=== PATIENT | female | born 1940 | race Caucasian/White ===

== ENCOUNTER 2019-06-20 06:07 | Emergency (ER) | payer MEDICARE ==
[2019-06-20] MEDS ORDERED: Sodium Chloride 0.9% 1000 ML 1,000 ML IV STA (06:25)
[2019-06-20 06:30] VITALS: O2SAT 96
--- NOTE | 2019-06-20 06:34 | ERPHSYRPT ---
- History of Present Illness Historian: patient Timing/Duration: day(s) (4; bloody diarrhea only started today) Activities at Onset: none Quality: cramping Abdominal Pain Onset Location: epigastric Severity of Pain-Max: mild Severity of Pain-Current: mild <AAMIR VAUGHN - Last Filed: 06/20/19 07:02> - History of Present Illness Exam Limitations: no limitations <HERRERAVIRIDIANALEAH CARLITA - Last Filed: 06/20/19 09:18> - History of Present Illness Time Seen by Provider: 06/20/19 06:23 Physician History: Placed on antibiotics 2 days ago; had diarrhea before then - has continued with several episodes this AM - with bright red blood present. Patien had complete/ extensive but routine (no problems prompting exam) recently with primary care provider. Has diarrhea always with antiibiotics - though this time was present before the ABX. (AAMIR VAUGHN) Allergies/Adverse Reactions: amoxicillin Allergy (Verified 06/20/19 06:36) codeine Allergy (Verified 06/20/19 06:36) dicyclomine [From Bentyl] Allergy (Verified 06/20/19 06:36) eszopiclone [From Lunesta] Allergy (Verified 06/20/19 06:36) gabapentin Allergy (Verified 06/20/19 06:36) morphine Allergy (Verified 06/20/19 06:36) propoxyphene [From Darvon] Allergy (Verified 06/20/19 06:36) tetracycline Allergy (Verified 06/20/19 06:36) Home Medications: Amlodipine Besylate 5 mg [Norvasc 5 mg] 5 mg PO DAILY 06/20/19 [History] Aspirin EC 81 mg [Ecotrin 81 mg] 81 mg PO DAILY 06/20/19 [History] Atorvastatin Calcium 10 mg PO DAILY 06/20/19 [History] Cetirizine HCl [Zyrtec] 10 mg PO DAILY 06/20/19 [History] Hydrochlorothiazide 25 mg [hydroDIURIL 25 MG] 25 mg PO DAILY 06/20/19 [ History] Losartan Potassium 50 mg [Cozaar 50 MG] 50 mg PO DAILY 10/21/19 [History] - Review of Systems Constitutional: No Symptoms Respiratory: No Symptoms Cardiac: No Symptoms Abdominal/Gastrointestinal: Other (cramping) All Other Systems: Reviewed and Negative <AAMIR VAUGHN - Last Filed: 06/20/19 07:02> - Past Medical History Neurological History: No Pertinent History Cardiac History: Hypertension Respiratory History: No Pertinent History Endocrine Medical History: Hypothyroidism, Other Musculoskeletal History: Osteoarthritis Other Medical History: BORDERLINE DMII, DOES NOT TAKE MEDICATION FOR THIS. SEE LIST FOR MEDICATIONS TAKEN. <AAMIR VAUGHN - Last Filed: 06/20/19 07:02> - Physical Exam General Appearance: no apparent distress Eye Exam: PERRL/EOMI Ears, Nose, Throat Exam: normal ENT inspection, pharynx normal, moist mucous membranes Neck Exam: normal inspection, non-tender, supple Respiratory Exam: normal breath sounds, lungs clear, airway intact, No chest tenderness, No respiratory distress Cardiovascular Exam: regular rate/rhythm, normal heart sounds, normal peripheral pulses, No edema Gastrointestinal/Abdomen Exam: soft Extremity Exam: normal inspection, No pedal edema, No swelling Neurologic Exam: alert, oriented x 3, cooperative Skin Exam: normal color, warm, dry SpO2 Interpretation: normal O2 Delivery: Room Air <AAMIR VAUGHN - Last Filed: 06/20/19 07:02> - Nursing Vital Signs Nursing Vital Signs: Initial Vital Signs Temperature 97.8 F 06/20/19 06:15 Pulse Rate 77 06/20/19 06:15 Respiratory Rate 16 06/20/19 06:15 Blood Pressure 168/71 06/20/19 06:15 O2 Sat by Pulse Oximetry 96 06/20/19 06:15 Pain Scale Pain Intensity 0 - Course Nursing assessment & vital signs reviewed: Yes <AAMIR VAUGHN - Last Filed: 06/20/19 07:02> - CT Exams Abdomen/Pelvis CT Interpretation: Other (iinterpretation: Lung bases demonstrates minimal fibrosis/scarring. No fracture or effusion. Heart is not enlarged. Noncontrast stomach and bowel loops appear nonobstructed. Patient reports appendectomy cholecystectomy. Diffuse scattered colonic diverticulosis with minimal descending and sigmoid diverticulitis. No free fluid//area. A few small hepatic cysts, largest 11 millimeters. Also a 6 mm splenic cyst. Remaining liver, pancreas, spleen, adrenal glands, kidneys, ureters, bladder, and uterus appear unremarkable. Moderate scattered aorta iliac calcifications. No AAA or pathologic retroperitoneal lymphadenopathy. Osseous structures intact with mild degenerative changes of the spine, greater his lower lumbar spine. Overall impression: Scattered colonic diverticulosis with minimal descending and sigmoid diverticulitis. No consultations. Incidental hepatic/ splenic cyst.) <WILLIE SILVERMAN - Last Filed: 06/20/19 09:18> Ordered Tests: Active Orders 24 hr Category Date Time Status IV Insertion STAT Care 06/20/19 06:25 Active Orthostatic Vital Signs STAT Care 06/20/19 08:06 Active ABDOMEN AND PELVIS W CONTRAST [CT] Stat Exams 06/20/19 06:26 Completed CBC W DIFF Stat Lab 06/20/19 06:36 Completed CMP Stat Lab 06/20/19 06:36 Completed LIPASE Stat Lab 06/20/19 06:36 Completed Medication Summary Discontinued Medications Generic Name Dose Route Start Last Admin Trade Name Freq PRN Reason Stop Dose Admin Sodium Chloride 1,000 mls @ 999 mls/hr 06/20/19 06:25 06/20/19 08:03 Sodium Chloride 0.9% 1000 Ml IV 06/20/19 07:25 Infused .Q1H1M STA Infusion Sodium Chloride Confirm 06/20/19 06:39 Sodium Chloride 0.9% 1000 Ml Administered 06/20/19 06:40 Dose 1,000 mls @ ud .ROUTE .STK-MED ONE Lab/Rad Data: Laboratory Result Diagrams 06/20/19 06:36 06/20/19 06:36 Laboratory Results 06/20/19 06/20/19 06/20/19 Range/Units 06:50 06:36 06:36 WBC 8.6 (4.0-10.5) K/mm3 RBC 4.33 (4.1-5.4) M/mm3 Hgb 13.9 (12.0-16.0) gm/dl Hct 41.5 (35-47) % MCV 95.8 (78-100) fl MCH 32.1 H (26-32) pg MCHC 33.5 (32-36) g/dl RDW 13.6 (11.5-14.0) % Plt Count 212 (150-450) K/mm3 MPV 9.5 (6-9.5) fl Gran % 52.3 (36.0-66.0) % Eos # (Auto) 0.17 (0-0.5) Absolute Lymphs (auto) 3.04 (1.0-4.6) Absolute Monos (auto) 0.83 (0.0-1.3) Lymphocytes % 35.4 (24.0-44.0) % Monocytes % 9.7 (0.0-12.0) % Eosinophils % 2.0 (0.00-5.0) % Basophils % 0.6 (0.0-0.4) % Absolute Granulocytes 4.50 (1.4-6.9) Basophils # 0.05 (0-0.4) Sodium 143 (137-145) mmol/L Potassium 3.7 (3.5-5.1) mmol/L Chloride 106 (98-107) mmol/L Carbon Dioxide 25 (22-30) mmol/L Anion Gap 14.6 (5-15) MEQ/L BUN 12 (7-17) mg/dL Creatinine 0.87 (0.52-1.04) mg/dL Estimated GFR > 60.0 ML/MIN Glucose 123 H (74-106) mg/dL Calcium 9.6 (8.4-10.2) mg/dL Total Bilirubin 0.80 (0.2-1.3) mg/dL AST 33 (14-36) U/L ALT 16 (0-35) U/L Alkaline Phosphatase 63 (38-126) U/L Serum Total Protein 7.3 (6.3-8.2) g/dL Albumin 4.2 (3.5-5.0) g/dL Lipase 73 (23-300) U/L Stl C. cayetanensis PCR NEGATIVE (NEGATIVE) Stl Adenov F 40/41 PCR NEGATIVE (NEGATIVE) Stool Astrovirus (PCR) NEGATIVE (NEGATIVE) Stool Cryptosporidium PCR NEGATIVE (NEGATIVE) Stool EPEC (PCR) NEGATIVE (NEGATIVE) Stool EAEC (PCR) NEGATIVE (NEGATIVE) Stl E. histolytica PCR NEGATIVE (NEGATIVE) Stl P. shigelloides PCR NEGATIVE (NEGATIVE) Stool Sapovirus (PCR) NEGATIVE (NEGATIVE) St Y.enterocolitica PCR NEGATIVE (NEGATIVE) Stool Vibrio (PCR) NEGATIVE (NEGATIVE) Stl Vibrio cholerae PCR NEGATIVE (NEGATIVE) Stl Norovirus GI/GII PCR NEGATIVE (NEGATIVE) Campylobacter (PCR) NEGATIVE (NEGATIVE) C. difficile (PCR) NEGATIVE (NEGATIVE) Enterotoxigenic E. coli NEGATIVE (NEGATIVE) E.coli Shiga Toxins NEGATIVE (NEGATIVE) Giardia lamblia NEGATIVE (NEGATIVE) Rotavirus A (PCR) NEGATIVE (NEGATIVE) Salmonella (PCR) NEGATIVE (NEGATIVE) Shigella (PCR) NEGATIVE (NEGATIVE) <AAMIR VAUGHN - Last Filed: 06/20/19 07:02> - Progress Progress: improved Counseled pt/family regarding: lab results, diagnosis, need for follow-up, rad results <WILLIE SILVERMAN - Last Filed: 06/20/19 09:18> - Progress Progress Note: 06/20/19 08:57 Repeat abdominal examination shows no guarding or any CVA tenderness bilaterally. (WILLIE SILVERMAN) <AAMIR VAUGHN - Last Filed: 06/20/19 07:02> - Departure Departure Disposition: Home Critical Care Time: No <WILLIE SILVERMAN - Last Filed: 06/20/19 09:18> - Departure Clinical Impression: Abdominal pain in female patient, Sigmoid diverticulitis, Hepatic cyst, Splenic cyst, Hematochezia Hypertension Qualifiers: Hypertension type: essential hypertension Qualified Code(s): I10 - Essential ( primary) hypertension Condition: Good Referrals: ISABEL LIRIANO DO [Primary Care Provider] - 06/20/19 Instructions: Gastrointestinal Bleeding (DC), Bloody Stools, Adult (DC), Acute Abdomen (Belly Pain), Adult (DC), High Blood Pressure (DC) Additional Instructions: Return immediately back to the Emergency Department if any worse abdominal pain , worsening bleeding, new dizziness, new shortness of breath, new back pain, fevers, or any other concerning signs or symptoms that were not present at today 's emergency department visit for immediate reevaluation in the emergency department. Prescriptions: Ciprofloxacin [Cipro 500 MG] 500 mg PO BID #20 tablet Docusate Sodium 100 mg [Colace 100 MG] 100 mg PO BID #14 cap Metronidazole 500 mg [Flagyl 500 MG] 500 mg PO QID #40 tablet
[2019-06-20] MEDS ORDERED: Sodium Chloride 0.9% 1000 ML 1,000 ML ONE (06:39)
[2019-06-20 06:40] LABS: BASOPHIL % 0.6 % (0.0-0.4); Basophil (Absolute #) 0.05 (0-0.4); Eosinophil (Absolute #) 0.17 (0-0.5); Hematocrit 41.5 % (35-47); Hemoglobin 13.9 gm/dl (12.0-16.0); Lymphocyte (Absolute #) 3.04 (1.0-4.6); Lymphocytes % 35.4 % (24.0-44.0); Mean Cell Volume 95.8 fl (78-100); Mean Corpuscular Hemoglobin 32.1 pg (26-32); Mean Corpuscular Hgb Concent. 33.5 g/dl (32-36); Mean Platelet Volume 9.5 fl (6-9.5); Monocyte (Absolute #) 0.83 (0.0-1.3); Monocytes % 9.7 % (0.0-12.0); Neutrophil % 52.3 % (36.0-66.0); Platelet Count 212 K/mm3 (150-450); Red Blood Count 4.33 M/mm3 (4.1-5.4); Red Cell Distribution Width 13.6 % (11.5-14.0); White Blood Count 8.6 K/mm3 (4.0-10.5)
[2019-06-20 06:49] LABS: ALBUMIN 4.2 g/dL (3.5-5.0); ALKALINE PHOSPHATASE 63 U/L (38-126); ANION GAP 14.6 MEQ/L (5-15); BLOOD UREA NITROGEN 12 mg/dL (7-17); CHLORIDE 106 mmol/L (98-107); Calcium 9.6 mg/dL (8.4-10.2); Carbon Dioxide 25 mmol/L (22-30); Creatinine 1 0.87 mg/dL (0.52-1.04); Glucose 123 mg/dL (74-106); LIPASE 73 U/L (23-300); Potassium 3.7 mmol/L (3.5-5.1); SGOT/AST 33 U/L (14-36); SGPT/ALT 16 U/L (0-35); SODIUM 143 mmol/L (137-145); Total Protein 7.3 g/dL (6.3-8.2)
--- NOTE | 2019-06-20 08:45 | XRAY ---
Indication: Abdomen pain and bloody diarrhea. Multiple contiguous axial images obtained through the abdomen and pelvis using 80 cc Isovue 370 contrast only. Comparison: None Lung bases demonstrates minimal fibrosis/scarring. No fracture or effusion. Heart is not enlarged. Noncontrasted stomach and bowel loops appear nonobstructed. Patient reports appendectomy and cholecystectomy. Diffuse scattered colonic diverticulosis with minimal descending and sigmoid diverticulitis. No free fluid/air. A few small hepatic cysts largest 11 mm. Also a 6 mm splenic cyst. Remaining liver, pancreas, spleen, adrenal glands, kidneys, ureters, bladder, and uterus appear unremarkable. Moderate scattered aortoiliac calcifications. No AAA or pathologic retroperitoneal lymphadenopathy. Osseous structures intact with mild degenerative changes throughout the spine, greatest lower lumbar spine. Impression: 1. Scattered colonic diverticulosis with minimal descending and sigmoid diverticulitis. No complications. 2. Incidental hepatic/splenic cysts. CT DI is 19.61
[2019-06-20 08:50] LABS: Adenovirus F 40/41 NEGATIVE (NEGATIVE); Astrovirus NEGATIVE (NEGATIVE); C. Difficile Organism NEGATIVE (NEGATIVE); Campylobacter NEGATIVE (NEGATIVE); Cryptosporidium NEGATIVE (NEGATIVE); Cyclospora cayentanensis NEGATIVE (NEGATIVE); Entamoeaba histolytica NEGATIVE (NEGATIVE); Enteroaggregative E.coli NEGATIVE (NEGATIVE); Enteropathogenic E.coli NEGATIVE (NEGATIVE); Enterotoxigenic E.coli NEGATIVE (NEGATIVE); Giardia lamblia NEGATIVE (NEGATIVE); Norovirus GI/GII NEGATIVE (NEGATIVE); Plesiomonas shigelloides NEGATIVE (NEGATIVE); Rotavirus A NEGATIVE (NEGATIVE); Salmonella NEGATIVE (NEGATIVE); Sapovirus NEGATIVE (NEGATIVE); Shiga-like toxin prod.E.coli NEGATIVE (NEGATIVE); Vibrio NEGATIVE (NEGATIVE); Vibrio cholerae NEGATIVE (NEGATIVE); Yersinia enterocolitica NEGATIVE (NEGATIVE)
[2019-06-20 09:33] VITALS: BP 168/73; PULSE 68
== END 2019-06-20 09:31 | disposition home or self-care (01) ==
LOC: ED 06:07
DX: R10.9 Unspecified abdominal pain (principal); K57.32 Diverticulitis of large intestine without perforation or abscess without bleeding; N28.1 Cyst of kidney, acquired; D73.4 Cyst of spleen; K92.1 Melena; I10 Essential (primary) hypertension; Z79.899 Other long term (current) drug therapy
CPT/HCPCS: 36000; 36415; 74177; 80053; 83690; 85025; 87507; 96360; 99284

== ENCOUNTER 2019-06-21 11:58 | Observation (INO) | payer MEDICARE ==
[2019-06-21 12:33] LABS: Absolute Neutrophil Ct (ANC) 6.54 (1.4-6.9); BASOPHIL % 0.4 % (0.0-0.4); Basophil (Absolute #) 0.04 (0-0.4); Eosinophil % 0.5 % (0.00-5.0); Eosinophil (Absolute #) 0.05 (0-0.5); Hematocrit 41.4 % (35-47); Hemoglobin 14.1 gm/dl (12.0-16.0); Lymphocyte (Absolute #) 2.82 (1.0-4.6); Mean Cell Volume 94.3 fl (78-100); Mean Corpuscular Hemoglobin 32.1 pg (26-32); Mean Corpuscular Hgb Concent. 34.1 g/dl (32-36); Mean Platelet Volume 9.4 fl (6-9.5); Monocyte (Absolute #) 0.99 (0.0-1.3); Monocytes % 9.5 % (0.0-12.0); Neutrophil % 62.6 % (36.0-66.0); Platelet Count 224 K/mm3 (150-450); Red Blood Count 4.39 M/mm3 (4.1-5.4); Red Cell Distribution Width 13.6 % (11.5-14.0); White Blood Count 10.4 K/mm3 (4.0-10.5)
[2019-06-21 12:46] LABS: ALBUMIN 4.4 g/dL (3.5-5.0); ALKALINE PHOSPHATASE 59 U/L (38-126); ANION GAP 16.8 MEQ/L (5-15); BLOOD UREA NITROGEN 10 mg/dL (7-17); CHLORIDE 107 mmol/L (98-107); Calcium 9.5 mg/dL (8.4-10.2); Carbon Dioxide 24 mmol/L (22-30); Creatinine 1 0.84 mg/dL (0.52-1.04); Glucose 124 mg/dL (74-106); Potassium 3.5 mmol/L (3.5-5.1); SGOT/AST 42 U/L (14-36); SGPT/ALT 18 U/L (0-35); SODIUM 144 mmol/L (137-145); Total Protein 7.6 g/dL (6.3-8.2)
[2019-06-21] MEDS ORDERED: PHENERGAN 25 MG PO PRN (13:27)
[2019-06-21] MEDS ORDERED: ULTRAM 50 MG PO SCH (13:30)
[2019-06-21] MEDS ORDERED: Phenergan 25 MG INJ IM SCH (13:30)
[2019-06-21] MEDS: Levofloxacin 500MG/100ML D5W 500 MG/100 ML BAG IV SCH (14:00)
[2019-06-21] MEDS: Sodium Chloride 0.9% W/ 20 mEq KCl/LITER 1,000 ML IV SCH (14:00)
[2019-06-21] MEDS: FLAGYL 500 MG IVPB 500 MG/100 ML BAG IV SCH ×2 (14:00→23:39)
[2019-06-21] MEDS ORDERED: MEDICATION INTERVENTION PO SCH (17:00)
[2019-06-21] MEDS: Vitamin B-12 500 MCG PO SCH (17:37)
[2019-06-21] MEDS: THERAGRAN MULTIVITAMIN PO SCH (17:38)
[2019-06-21] MEDS: Cozaar 50 MG PO SCH (17:38)
[2019-06-21] MEDS: CLARITIN 10 MG PO SCH (17:38)
--- NOTE | 2019-06-21 18:30 | PCM.HP ---
History of Present Illness - Chief Complaint Chief Complaint: DIVERTICULILTIS,N/V, LOWER GI BLEED History of Present Illness: is a 78 year old female who was seen in ER yesterday with abdominal pain and hematochezia. CT showed sigmoid diverticulitis. She was given Cipro and Flagyl and took 1 days dose then started dry heaving . She came to see me at the Clinic today C/O weakness and severe nausea and low abdominal pain.Not able to eat. - Review of Systems Constitutional: Lethargy, Weakness, Other (no fever or has not taken temp but is chilled) Eyes: No Symptoms Ears, Nose, & Throat: No Symptoms Respiratory: No Cough, No Short Of Breath Cardiac: No Symptoms Abdominal/Gastrointestinal: Abdominal Pain, Nausea, Vomiting, Hematochezia, Appetite Changes Genitourinary Symptoms: Frequency, Incontinence (stress incontinence) Musculoskeletal: No Back Pain, No Neck Pain Skin: No Rash Neurological: No Dizziness, No Focal Weakness, No Sensory Changes Psychological: No Symptoms Hematologic/Lymphatic: No Symptoms (had red blood in stool x 2 stools) Medications & Allergies Home Medications: Home Medication List Amlodipine Besylate 5 mg [Norvasc 5 mg] 5 mg PO DAILY 06/20/19 [History Confirmed 06/21/19] Aspirin EC 81 mg [Ecotrin 81 mg] 81 mg PO DAILY 06/20/19 [History Confirmed 06/21/19] Atorvastatin Calcium 5 mg PO QHS 06/20/19 [History Confirmed 06/21/19] Cetirizine HCl [Zyrtec] 10 mg PO DAILY 06/20/19 [History Confirmed 06/21/19] Docusate Sodium 100 mg [Colace 100 MG] 100 mg PO BID #14 cap 06/20/19 [Rx Confirmed 06/21/19] Hydrochlorothiazide 25 mg [hydroDIURIL 25 MG] 25 mg PO DAILY 06/20/19 [ History Confirmed 06/21/19] Losartan Potassium 50 mg [Cozaar 50 MG] 50 mg PO DAILY 06/20/19 [History Confirmed 06/21/19] Multivit-Min/Iron/Folic/Lutein [Centrum Silver Women Tablet] 1 each PO DAILY [History Confirmed 06/21/19] Non-Formulary Drug [Non-Formulary Item] 1 each PO DAILY 06/21/19 [History Confirmed 06/21/19] Non-Formulary Drug [Non-Formulary Item] 1 each PO QHS 06/21/19 [History Confirmed 06/21/19] Non-Formulary Drug [Non-Formulary Item] 1 each PO QHS 06/21/19 [History Confirmed 06/21/19] Sucralfate 1000 mg/10 ml [Carafate SUSPENSION 1000 MG/10 ML] 1,000 mg PO ACHS #200 ml 06/25/19 [Rx] Allergies/Adverse Reactions: Allergies Allergy/AdvReac Type Severity Reaction Status Date / Time amoxicillin Allergy Verified 06/20/19 06:36 codeine Allergy Verified 06/20/19 06:36 dicyclomine [From Bentyl] Allergy Verified 06/20/19 06:36 eszopiclone [From Lunesta] Allergy Verified 06/20/19 06:36 gabapentin Allergy Verified 06/20/19 06:36 morphine Allergy Verified 06/20/19 06:36 propoxyphene [From Darvon] Allergy Verified 06/20/19 06:36 tetracycline Allergy Verified 06/20/19 06:36 - Past Medical History Past Medical History: Yes Neurological History: No Pertinent History Cardiac History: Hypertension Respiratory History: No Pertinent History Endocrine Medical History: Hypothyroidism, Other Musculoskelatal History: Osteoarthritis GI Medical History: Diverticulitis History: No Pertinent History Pyscho-Social History: Anxiety Reproductive Disorders: No Pertinent History Comment: BORDERLINE DMII, DOES NOT TAKE MEDICATION FOR THIS. SEE LIST FOR MEDICATIONS TAKEN. 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 - Social History Smoking Status: Never smoker Exposure to second hand smoke: No Alcohol: None Drug Use: none - Physical Exam Vital Signs: Vital Signs - 24 hr Temp Pulse Resp BP Pulse Ox 06/21/19 16:19 97.2 F 63 20 120/57 93 L 06/21/19 12:19 97.7 F 65 20 150/65 General Appearance: moderate distress Neurologic Exam: alert, oriented x 3, cooperative, locum tenens psychiatrist II-XII nml as tested, normal mood/affect, nml station & gait (but is weak) Eye Exam: PERRL/EOMI (sclera nonicteric) Ears, Nose, Throat Exam: normal ENT inspection, dry mucous membranes Neck Exam: normal inspection, non-tender, supple, full range of motion Respiratory Exam: normal breath sounds, lungs clear, No respiratory distress Cardiovascular Exam: regular rate/rhythm, normal heart sounds, normal peripheral pulses Gastrointestinal/Abdomen Exam: tenderness (periumbilicaland across low abdomen left >right,no rebound no guarding), distention Pelvic Exam: not done Rectal Exam: deferred Back Exam: normal inspection, normal range of motion, No CVA tenderness, No vertebral tenderness Extremity Exam: normal inspection, normal range of motion, pelvis stable Skin Exam: warm, dry, pale Results - Labs Lab/Micro Results: Lab Results-Last 24 Hours 06/21/19 06/21/19 Range/Units 12:29 12:29 WBC 10.4 (4.0-10.5) K/mm3 RBC 4.39 (4.1-5.4) M/mm3 Hgb 14.1 (12.0-16.0) gm/dl Hct 41.4 (35-47) % MCV 94.3 (78-100) fl MCH 32.1 H (26-32) pg MCHC 34.1 (32-36) g/dl RDW 13.6 (11.5-14.0) % Plt Count 224 (150-450) K/mm3 MPV 9.4 (6-9.5) fl Gran % 62.6 (36.0-66.0) % Eos # (Auto) 0.05 (0-0.5) Absolute Lymphs (auto) 2.82 (1.0-4.6) Absolute Monos (auto) 0.99 (0.0-1.3) Lymphocytes % 27.0 (24.0-44.0) % Monocytes % 9.5 (0.0-12.0) % Eosinophils % 0.5 (0.00-5.0) % Basophils % 0.4 (0.0-0.4) % Absolute Granulocytes 6.54 (1.4-6.9) Basophils # 0.04 (0-0.4) Sodium 144 (137-145) mmol/L Potassium 3.5 (3.5-5.1) mmol/L Chloride 107 (98-107) mmol/L Carbon Dioxide 24 (22-30) mmol/L Anion Gap 16.8 H (5-15) MEQ/L BUN 10 (7-17) mg/dL Creatinine 0.84 (0.52-1.04) mg/dL Estimated GFR > 60.0 ML/MIN Glucose 124 H (74-106) mg/dL Calcium 9.5 (8.4-10.2) mg/dL Total Bilirubin 0.70 (0.2-1.3) mg/dL AST 42 H (14-36) U/L ALT 18 (0-35) U/L Alkaline Phosphatase 59 (38-126) U/L Serum Total Protein 7.6 (6.3-8.2) g/dL Albumin 4.4 (3.5-5.0) g/dL Assessment/Plan (1) Abdominal pain in female patient Status: Acute Assessment & Plan: upper periumbilical S/P long episodes of dry heaves. Code(s): R10.9 - UNSPECIFIED ABDOMINAL PAIN (2) Hematochezia Status: Acute Assessment & Plan: red blood mixed with stool ,sigmoid diverticulitis per CT Code(s): K92.1 - MELENA (3) Vomiting Status: Resolved Qualifiers: Nausea presence: with nausea Code(s): R11.10 - VOMITING, UNSPECIFIED (4) Sigmoid diverticulitis Status: Acute Assessment & Plan: IV Flagyl and Cipro -could not tolerate PO Code(s): K57.32 - DVTRCLI OF LG INT W/O PERFORATION OR ABSCESS W/O BLEEDING (5) Hypertension Status: Chronic Qualifiers: Hypertension type: essential hypertension Qualified Code(s): I10 - Essential (primary) hypertension Assessment & Plan: continue present meds and monitor. Code(s): I10 - ESSENTIAL (PRIMARY) HYPERTENSION (6) Nausea alone Status: Acute Assessment & Plan: gastritis ,possible ulcer but not able to tolerate UGI . Will be having scope upper and lower when stable.IV PPI
[2019-06-21] MEDS ORDERED: Ativan 0.5 MG PO PRN (19:42)
[2019-06-21] MEDS ORDERED: POTASSIUM CHLORIDE 20 mEq IN WATER 100ML 20 MEQ/100 ML BAG IV ONE (20:30)
[2019-06-21] MEDS ORDERED: Sodium Chloride 0.9% 250 ML 250 ML IV ONE (20:31)
[2019-06-21] MEDS: PROTONIX 40 MG IV IV SCH (20:43)
[2019-06-21] MEDS: Phenergan 25 MG INJ IV PRN (20:51)
[2019-06-21] MEDS ORDERED: Sodium Chloride 0.9% 250 ML 250 ML IV SCH (21:15)
[2019-06-21] MEDS ORDERED: [UNRECOGNIZED DRUG - OTHER] PO SCH ×2 (22:00)
[2019-06-21] MEDS ORDERED: ATORVASTATIN CALCIUM 5 MG PO SCH (22:00)
[2019-06-21] MEDS: Zocor 10MG PO SCH (23:59)
[2019-06-22] MEDS: ULTRAM 50 MG PO PRN (01:37)
[2019-06-22 02:10] LABS: BASOPHIL % 0.5 % (0.0-0.4); Basophil (Absolute #) 0.04 (0-0.4); Eosinophil % 1.2 % (0.00-5.0); Hematocrit 40.6 % (35-47); Hemoglobin 13.5 gm/dl (12.0-16.0); Lymphocyte (Absolute #) 2.67 (1.0-4.6); Lymphocytes % 33.2 % (24.0-44.0); Mean Cell Volume 96.4 fl (78-100); Mean Corpuscular Hemoglobin 32.1 pg (26-32); Mean Corpuscular Hgb Concent. 33.3 g/dl (32-36); Mean Platelet Volume 9.4 fl (6-9.5); Monocyte (Absolute #) 1.04 (0.0-1.3); Monocytes % 12.9 % (0.0-12.0); Neutrophil % 52.2 % (36.0-66.0); Platelet Count 198 K/mm3 (150-450); Red Blood Count 4.21 M/mm3 (4.1-5.4); Red Cell Distribution Width 13.5 % (11.5-14.0); White Blood Count 8.1 K/mm3 (4.0-10.5)
[2019-06-22 02:15] LABS: ALBUMIN 3.7 g/dL (3.5-5.0); ALKALINE PHOSPHATASE 49 U/L (38-126); AMYLASE 46 U/L (30-110); ANION GAP 11.7 MEQ/L (5-15); BLOOD UREA NITROGEN 10 mg/dL (7-17); CHLORIDE 108 mmol/L (98-107); Calcium 8.9 mg/dL (8.4-10.2); Carbon Dioxide 26 mmol/L (22-30); Creatinine 1 0.79 mg/dL (0.52-1.04); Glucose 101 mg/dL (74-106); LIPASE 57 U/L (23-300); Potassium 3.9 mmol/L (3.5-5.1); SGOT/AST 41 U/L (14-36); SGPT/ALT 16 U/L (0-35); SODIUM 142 mmol/L (137-145); Total Protein 6.6 g/dL (6.3-8.2)
[2019-06-22] MEDS: Sodium Chloride 0.9% W/ 20 mEq KCl/LITER 1,000 ML IV SCH ×3 (02:54→22:58)
[2019-06-22] MEDS: PROTONIX 40 MG IV IV SCH ×2 (08:49→20:11)
[2019-06-22] MEDS: Levofloxacin 500MG/100ML D5W 500 MG/100 ML BAG IV SCH (08:51)
[2019-06-22] MEDS: FLAGYL 500 MG IVPB 500 MG/100 ML BAG IV SCH ×2 (08:52→22:58)
--- NOTE | 2019-06-22 09:33 | PCM.NOTE ---
Date and Time: 06/22/19923 Subjective Assessment: Patient states she has not had any further bloody BMs and lower abdominal pain is gone. C/O trouble with nausea and vomiting after taking B/P meds on an empty stomach yesterday and is afraid to eat today. Phenergan was given IV last evening .Patient ate a jello cup and a bite of soda cracker this morning without vomiting.Still C/O nausea but it has improved.Is on IV PPI.C/O pain/ discomfort points to periumbilical area. She is S/P remote Cholecystectomy and appendectomy. Denies cough or any other new symptoms. Objective Exam Neurologic Exam: alert, oriented x 3, cooperative Skin Exam: normal color, warm, dry Eye Exam: eyes nml inspection Ears, Nose, Throat Exam: normal ENT inspection Neck Exam: normal inspection Respiratory Exam: normal breath sounds, lungs clear, No respiratory distress Cardiovascular Exam: regular rate/rhythm, normal heart sounds Gastrointestinal/Abdomen Exam: soft (increased BS), tenderness (epigastrum,no low abdominal tenderness.) Extremity Exam: normal inspection (no edema) Back Exam: other (no CVA tenderness) OBJECTIVE DATA Vital Signs: Vital Signs - 24 hr Temp Pulse Resp BP Pulse Ox 06/22/19 07:42 98.1 F 63 17 115/56 97 06/22/19 04:00 98.1 F 66 17 110/54 93 L 06/22/19 00:00 98.1 F 69 17 109/55 94 L 06/21/19 20:00 97.5 F 65 16 114/55 94 L 06/21/19 16:19 97.2 F 63 20 120/57 93 L 06/21/19 12:19 97.7 F 65 20 150/65 Pain Assessment - Last Documented Pain Intensity 6 Pain Scale Used 0-10 Pain Scale Intake and Output: Intake & Output 06/19/19 06/20/19 06/21/19 06/22/19 11:59 11:59 11:59 11:59 Intake Total 2811 Output Total 1725 Balance 1086 Weight 69.7 kg Lab Results: Lab Results-Last 24 Hours 06/21/19 06/21/19 06/22/19 Range/Units 12:29 12:29 02:05 WBC 10.4 8.1 (4.0-10.5) K/mm3 RBC 4.39 4.21 (4.1-5.4) M/mm3 Hgb 14.1 13.5 (12.0-16.0) gm/dl Hct 41.4 40.6 (35-47) % MCV 94.3 96.4 (78-100) fl MCH 32.1 H 32.1 H (26-32) pg MCHC 34.1 33.3 (32-36) g/dl RDW 13.6 13.5 (11.5-14.0) % Plt Count 224 198 (150-450) K/mm3 MPV 9.4 9.4 (6-9.5) fl Gran % 62.6 52.2 (36.0-66.0) % Eos # (Auto) 0.05 0.10 (0-0.5) Absolute Lymphs (auto) 2.82 2.67 (1.0-4.6) Absolute Monos (auto) 0.99 1.04 (0.0-1.3) Lymphocytes % 27.0 33.2 (24.0-44.0) % Monocytes % 9.5 12.9 H (0.0-12.0) % Eosinophils % 0.5 1.2 (0.00-5.0) % Basophils % 0.4 0.5 (0.0-0.4) % Absolute Granulocytes 6.54 4.20 (1.4-6.9) Basophils # 0.04 0.04 (0-0.4) Sodium 144 (137-145) mmol/L Potassium 3.5 (3.5-5.1) mmol/L Chloride 107 (98-107) mmol/L Carbon Dioxide 24 (22-30) mmol/L Anion Gap 16.8 H (5-15) MEQ/L BUN 10 (7-17) mg/dL Creatinine 0.84 (0.52-1.04) mg/dL Estimated GFR > 60.0 ML/MIN Glucose 124 H (74-106) mg/dL Calcium 9.5 (8.4-10.2) mg/dL Total Bilirubin 0.70 (0.2-1.3) mg/dL AST 42 H (14-36) U/L ALT 18 (0-35) U/L Alkaline Phosphatase 59 (38-126) U/L Serum Total Protein 7.6 (6.3-8.2) g/dL Albumin 4.4 (3.5-5.0) g/dL Amylase (30-110) U/L Lipase (23-300) U/L 06/22/19 Range/Units 02:05 WBC (4.0-10.5) K/mm3 RBC (4.1-5.4) M/mm3 Hgb (12.0-16.0) gm/dl Hct (35-47) % MCV (78-100) fl MCH (26-32) pg MCHC (32-36) g/dl RDW (11.5-14.0) % Plt Count (150-450) K/mm3 MPV (6-9.5) fl Gran % (36.0-66.0) % Eos # (Auto) (0-0.5) Absolute Lymphs (auto) (1.0-4.6) Absolute Monos (auto) (0.0-1.3) Lymphocytes % (24.0-44.0) % Monocytes % (0.0-12.0) % Eosinophils % (0.00-5.0) % Basophils % (0.0-0.4) % Absolute Granulocytes (1.4-6.9) Basophils # (0-0.4) Sodium 142 (137-145) mmol/L Potassium 3.9 (3.5-5.1) mmol/L Chloride 108 H (98-107) mmol/L Carbon Dioxide 26 (22-30) mmol/L Anion Gap 11.7 (5-15) MEQ/L BUN 10 (7-17) mg/dL Creatinine 0.79 (0.52-1.04) mg/dL Estimated GFR > 60.0 ML/MIN Glucose 101 (74-106) mg/dL Calcium 8.9 (8.4-10.2) mg/dL Total Bilirubin 0.70 (0.2-1.3) mg/dL AST 41 H (14-36) U/L ALT 16 (0-35) U/L Alkaline Phosphatase 49 (38-126) U/L Serum Total Protein 6.6 (6.3-8.2) g/dL Albumin 3.7 (3.5-5.0) g/dL Amylase 46 (30-110) U/L Lipase 57 (23-300) U/L Assessment/Plan (1) Hematochezia Current Visit: No Status: Resolved Code(s): K92.1 - MELENA (2) Sigmoid diverticulitis Current Visit: No Status: Acute Assessment & Plan: improving on IV Levaquin and IV Flagyl. Code(s): K57.32 - DVTRCLI OF LG INT W/O PERFORATION OR ABSCESS W/O BLEEDING (3) Nausea & vomiting Current Visit: Yes Status: Resolved Assessment & Plan: vomiting has subsided but has only had jello and a bite of cracker today. Code(s): R11.2 - NAUSEA WITH VOMITING, UNSPECIFIED (4) Nausea alone Current Visit: Yes Status: Acute Assessment & Plan: I feel this is due to gastritis,will start Carafate Suspension. (5) Hypertension Current Visit: No Status: Chronic Qualifiers: Hypertension type: essential hypertension Qualified Code(s): I10 - Essential (primary) hypertension Assessment & Plan: continue present meds but do not give on an empty stomach. Code(s): I10 - ESSENTIAL (PRIMARY) HYPERTENSION
[2019-06-22] MEDS ORDERED: MULTIVIT MIN PO SCH (10:00)
[2019-06-22] MEDS ORDERED: [UNRECOGNIZED DRUG - OTHER] PO SCH (10:00)
[2019-06-22] MEDS ORDERED: Zocor 10MG PO SCH (10:00)
[2019-06-22] MEDS ORDERED: FOLIC PO SCH (10:00)
[2019-06-22] MEDS ORDERED: [UNRECOGNIZED DRUG - OTHER] PO SCH (10:00)
[2019-06-22] MEDS ORDERED: LUTEIN PO SCH (10:00)
[2019-06-22] MEDS ORDERED: IRON PO SCH (10:00)
[2019-06-22] MEDS ORDERED: NON-FORMULARY ITEM (Cetirizine Hcl [Zyrtec] 10 MG) PO SCH (10:00)
[2019-06-22] MEDS: Carafate SUSPENSION 1000 MG/10 ML PO SCH ×3 (11:49→22:59)
[2019-06-22] MEDS: Cozaar 50 MG PO SCH (12:43)
[2019-06-22] MEDS: CLARITIN 10 MG PO SCH (12:43)
[2019-06-22] MEDS: NORVASC 5 MG PO SCH (12:43)
[2019-06-22] MEDS: THERAGRAN MULTIVITAMIN PO SCH (12:44)
[2019-06-22] MEDS: Vitamin B-12 500 MCG PO SCH (12:44)
--- NOTE | 2019-06-22 15:23 | PROG NOTE ---
DATE: 06/22/2019 SUBJECTIVE: Minimal abdominal pain. No bowel movements since admission. No bloody bowel movement. No nausea or vomiting. OBJECTIVE: Afebrile. Vitals stable. No acute distress. LUNGS: Nonlabored respirations. ABDOMEN: Obese, soft, nondistended. Mild to moderate tenderness suprapubic and left lower quadrant. No rebound. No guarding. ASSESSMENT AND PLAN: An 78 year-old female with simple diverticulitis. She initially had bleeding but has had no ongoing bleeding. Continue with antibiotics and conservative therapy per primary. The patient will need interval colonoscopy in four to six weeks to evaluate her sigmoid colon. She will need to follow up with general surgery in the office in approximately four weeks. Please call with any questions. We will follow peripherally.
[2019-06-22 15:36] LABS: Adenovirus F 40/41 NEGATIVE (NEGATIVE); Astrovirus NEGATIVE (NEGATIVE); C. Difficile Organism NEGATIVE (NEGATIVE); Campylobacter NEGATIVE (NEGATIVE); Cryptosporidium NEGATIVE (NEGATIVE); Cyclospora cayentanensis NEGATIVE (NEGATIVE); Entamoeaba histolytica NEGATIVE (NEGATIVE); Enteroaggregative E.coli NEGATIVE (NEGATIVE); Enteropathogenic E.coli NEGATIVE (NEGATIVE); Enterotoxigenic E.coli NEGATIVE (NEGATIVE); Giardia lamblia NEGATIVE (NEGATIVE); Norovirus GI/GII NEGATIVE (NEGATIVE); Plesiomonas shigelloides NEGATIVE (NEGATIVE); Rotavirus A NEGATIVE (NEGATIVE); Salmonella NEGATIVE (NEGATIVE); Sapovirus NEGATIVE (NEGATIVE); Shiga-like toxin prod.E.coli NEGATIVE (NEGATIVE); Vibrio NEGATIVE (NEGATIVE); Vibrio cholerae NEGATIVE (NEGATIVE); Yersinia enterocolitica NEGATIVE (NEGATIVE)
[2019-06-22 15:37] LABS: 027 TOX PROD PRESUMPTIVE NEGATIVE (NEGATIVE); TOXIGENIC C. DIFF ORG NEGATIVE (NEGATIVE)
[2019-06-22] MEDS: Phenergan 25 MG INJ IV PRN (17:00)
[2019-06-22] MEDS: Zocor 10MG PO SCH (22:58)
[2019-06-23 04:58] LABS: Absolute Neutrophil Ct (ANC) 4.44 (1.4-6.9); BASOPHIL % 0.7 % (0.0-0.4); Basophil (Absolute #) 0.06 (0-0.4); Eosinophil (Absolute #) 0.18 (0-0.5); Hematocrit 41.5 % (35-47); Hemoglobin 13.8 gm/dl (12.0-16.0); Lymphocyte (Absolute #) 3.35 (1.0-4.6); Lymphocytes % 37.4 % (24.0-44.0); Mean Corpuscular Hemoglobin 32.2 pg (26-32); Mean Corpuscular Hgb Concent. 33.3 g/dl (32-36); Mean Platelet Volume 9.3 fl (6-9.5); Monocyte (Absolute #) 0.92 (0.0-1.3); Monocytes % 10.3 % (0.0-12.0); Neutrophil % 49.6 % (36.0-66.0); Platelet Count 201 K/mm3 (150-450); Red Blood Count 4.28 M/mm3 (4.1-5.4); Red Cell Distribution Width 13.6 % (11.5-14.0)
[2019-06-23 05:18] LABS: ALBUMIN 3.8 g/dL (3.5-5.0); ALKALINE PHOSPHATASE 44 U/L (38-126); ANION GAP 13.7 MEQ/L (5-15); BLOOD UREA NITROGEN 8 mg/dL (7-17); CHLORIDE 108 mmol/L (98-107); Calcium 8.9 mg/dL (8.4-10.2); Carbon Dioxide 24 mmol/L (22-30); Creatinine 1 0.87 mg/dL (0.52-1.04); Glucose 102 mg/dL (74-106); Potassium 4.1 mmol/L (3.5-5.1); SGOT/AST 44 U/L (14-36); SGPT/ALT 20 U/L (0-35); SODIUM 141 mmol/L (137-145); Total Protein 6.7 g/dL (6.3-8.2)
[2019-06-23] MEDS: Phenergan 25 MG INJ IV PRN (06:42)
[2019-06-23] MEDS: Carafate SUSPENSION 1000 MG/10 ML PO SCH ×4 (07:40→21:23)
[2019-06-23] MEDS ORDERED: PHENERGAN 25 MG PO PRN (08:28)
--- NOTE | 2019-06-23 08:56 | PCM.NOTE ---
Date and Time: 06/23/19850 Subjective Assessment: She says she's not feeling well, denies abd pain, denies radha nausea but says she feels "gaggy." Had 2 BMs this morning. No blood in the stool. She does think she'll eat toast later. tolerated small amount of po yesterday without vomiting (jello, crackers). Objective Exam General Appearance: mild distress (wrapped up in blankets), alert, obese Neurologic Exam: oriented x 3, cooperative Skin Exam: normal color, warm, dry, No rash Respiratory Exam: normal breath sounds, lungs clear, No crackles/rales, No rhonchi, No wheezing Cardiovascular Exam: regular rate/rhythm, normal heart sounds, No murmur Gastrointestinal/Abdomen Exam: soft, normal bowel sounds, tenderness (diffuse, worse in RLQ), No distention, No mass, No guarding, No rebound Extremity Exam: No pedal edema, No swelling OBJECTIVE DATA Vital Signs: Vital Signs - 24 hr Temp Pulse Resp BP Pulse Ox 06/23/19 07:53 98.7 F 85 20 161/77 95 06/23/19 04:00 97.9 F 65 18 149/61 96 06/22/19 23:55 97.7 F 67 20 140/63 94 L 06/22/19 19:56 97.7 F 70 17 136/64 94 L 06/22/19 16:00 97.7 F 65 17 140/65 96 06/22/19 12:00 97.8 F 61 16 107/55 93 L Pain Assessment - Last Documented Pain Intensity 0 Pain Scale Used 0-10 Pain Scale Intake and Output: Intake & Output 06/20/19 06/21/19 06/22/19 06/23/19 11:59 11:59 11:59 11:59 Intake Total 2931 4628 Output Total 1725 2100 Balance 1206 2528 Weight 69.7 kg Lab Results: Lab Results-Last 24 Hours 06/22/19 06/23/19 06/23/19 Range/Units 14:00 04:40 04:40 WBC 9.0 (4.0-10.5) K/mm3 RBC 4.28 (4.1-5.4) M/mm3 Hgb 13.8 (12.0-16.0) gm/dl Hct 41.5 (35-47) % MCV 97.0 (78-100) fl MCH 32.2 H (26-32) pg MCHC 33.3 (32-36) g/dl RDW 13.6 (11.5-14.0) % Plt Count 201 (150-450) K/mm3 MPV 9.3 (6-9.5) fl Gran % 49.6 (36.0-66.0) % Eos # (Auto) 0.18 (0-0.5) Absolute Lymphs (auto) 3.35 (1.0-4.6) Absolute Monos (auto) 0.92 (0.0-1.3) Lymphocytes % 37.4 (24.0-44.0) % Monocytes % 10.3 (0.0-12.0) % Eosinophils % 2.0 (0.00-5.0) % Basophils % 0.7 (0.0-0.4) % Absolute Granulocytes 4.44 (1.4-6.9) Basophils # 0.06 (0-0.4) Sodium 141 (137-145) mmol/L Potassium 4.1 (3.5-5.1) mmol/L Chloride 108 H (98-107) mmol/L Carbon Dioxide 24 (22-30) mmol/L Anion Gap 13.7 (5-15) MEQ/L BUN 8 (7-17) mg/dL Creatinine 0.87 (0.52-1.04) mg/dL Estimated GFR > 60.0 ML/MIN Glucose 102 (74-106) mg/dL Calcium 8.9 (8.4-10.2) mg/dL Total Bilirubin 0.70 (0.2-1.3) mg/dL AST 44 H (14-36) U/L ALT 20 (0-35) U/L Alkaline Phosphatase 44 (38-126) U/L Serum Total Protein 6.7 (6.3-8.2) g/dL Albumin 3.8 (3.5-5.0) g/dL Stl C. cayetanensis PCR NEGATIVE (NEGATIVE) Stl Adenov F 40/41 PCR NEGATIVE (NEGATIVE) Stool Astrovirus (PCR) NEGATIVE (NEGATIVE) Stool Cryptosporidium PCR NEGATIVE (NEGATIVE) Stool EPEC (PCR) NEGATIVE (NEGATIVE) Stool EAEC (PCR) NEGATIVE (NEGATIVE) Stl E. histolytica PCR NEGATIVE (NEGATIVE) Stl P. shigelloides PCR NEGATIVE (NEGATIVE) Stool Sapovirus (PCR) NEGATIVE (NEGATIVE) St Y.enterocolitica PCR NEGATIVE (NEGATIVE) Stool Vibrio (PCR) NEGATIVE (NEGATIVE) Stl Vibrio cholerae PCR NEGATIVE (NEGATIVE) Stl Norovirus GI/GII PCR NEGATIVE (NEGATIVE) Campylobacter (PCR) NEGATIVE (NEGATIVE) C. difficile Screen NEGATIVE (NEGATIVE) C.difficile [id number] PRESUMPTIVE NEGATIVE (NEGATIVE) C. difficile (PCR) NEGATIVE (NEGATIVE) Enterotoxigenic E. coli NEGATIVE (NEGATIVE) E.coli Shiga Toxins NEGATIVE (NEGATIVE) Giardia lamblia NEGATIVE (NEGATIVE) Rotavirus A (PCR) NEGATIVE (NEGATIVE) Salmonella (PCR) NEGATIVE (NEGATIVE) Shigella (PCR) NEGATIVE (NEGATIVE) Multi-Disciplinary Progress Notes: Multi-Disciplinary Progress Notes 06/22/19 14:03 Pharmacy Note by Gilson Montenegro Normal Carafate dose is 1000mg po QID. Current dose is 1500mg. Recommend lowering dose. Initialized on 06/22/19 14:03 - END OF NOTE Assessment/Plan (1) Sigmoid diverticulitis Current Visit: No Status: Acute Assessment & Plan: soft stools - stool tests negative. On IV levaquin and flagyl day #3. Code(s): K57.32 - DVTRCLI OF LG INT W/O PERFORATION OR ABSCESS W/O BLEEDING (2) Nausea alone Current Visit: Yes Status: Acute Assessment & Plan: May be related to the antibiotics. On IV PPI and on carafate. (3) Hypertension Current Visit: No Status: Chronic Qualifiers: Hypertension type: essential hypertension Qualified Code(s): I10 - Essential (primary) hypertension Code(s): I10 - ESSENTIAL (PRIMARY) HYPERTENSION (4) Hematochezia Current Visit: No Status: Resolved Code(s): K92.1 - MELENA
[2019-06-23] MEDS: PROTONIX 40 MG IV IV SCH ×2 (08:57→19:38)
[2019-06-23] MEDS: NORVASC 5 MG PO SCH (08:59)
[2019-06-23] MEDS: FLAGYL 500 MG IVPB 500 MG/100 ML BAG IV SCH ×2 (09:00→21:23)
[2019-06-23] MEDS: Levofloxacin 500MG/100ML D5W 500 MG/100 ML BAG IV SCH (09:01)
[2019-06-23] MEDS: Vitamin B-12 500 MCG PO SCH (09:04)
[2019-06-23] MEDS: CLARITIN 10 MG PO SCH (09:04)
[2019-06-23] MEDS: THERAGRAN MULTIVITAMIN PO SCH (09:04)
[2019-06-23] MEDS: Sodium Chloride 0.9% W/ 20 mEq KCl/LITER 1,000 ML IV SCH ×2 (11:19→23:44)
[2019-06-23] MEDS: Cozaar 50 MG PO SCH (11:19)
[2019-06-23] MEDS: Zocor 10MG PO SCH (21:23)
[2019-06-24] MEDS: PROTONIX 40 MG IV IV SCH (07:21)
[2019-06-24] MEDS: Carafate SUSPENSION 1000 MG/10 ML PO SCH ×4 (07:22→21:37)
[2019-06-24] MEDS: Levofloxacin 500MG/100ML D5W 500 MG/100 ML BAG IV SCH (08:38)
[2019-06-24] MEDS: NORVASC 5 MG PO SCH (08:38)
[2019-06-24] MEDS: THERAGRAN MULTIVITAMIN PO SCH (08:38)
[2019-06-24] MEDS: CLARITIN 10 MG PO SCH (08:38)
[2019-06-24] MEDS: Cozaar 50 MG PO SCH (08:38)
[2019-06-24] MEDS: Vitamin B-12 500 MCG PO SCH (08:38)
[2019-06-24] MEDS: FLAGYL 500 MG IVPB 500 MG/100 ML BAG IV SCH ×2 (09:28→21:37)
[2019-06-24 11:21] LABS: H.Pylori Stool Ag. EIA Negative (Negative); Source H. Pylori Ag. Feces
--- NOTE | 2019-06-24 12:29 | PCM.NOTE ---
Date and Time: 06/24/19 1223 Subjective Assessment: Patient has started to have an appetite but stomach is unsettled and c/o pain above her umbilicus. Ate a few bites of a pancake this morning without vomiting. Ate 1/4 of a grilled cheese last night. BM pastey this morning but more towards formed ,no blood or tarry stool today. States she is able to get up to go to the bathroom but has not felt like walking in the [place]. OBJECTIVE DATA Vital Signs: Vital Signs - 24 hr Temp Pulse Resp BP Pulse Ox 06/24/19 08:00 98.6 F 72 16 128/60 93 L 06/24/19 03:59 97.5 F 70 18 144/64 95 06/24/19 00:00 98.6 F 73 18 149/67 95 06/23/19 20:00 97.6 F 77 18 162/69 95 06/23/19 16:00 97.8 F 74 18 178/77 95 Pain Assessment - Last Documented Pain Intensity 3 Pain Scale Used 0-10 Pain Scale Intake and Output: Intake & Output 06/22/19 06/23/19 06/24/19 06/25/19 11:59 11:59 11:59 11:59 Intake Total 2931 4868 3515 Output Total 1725 2400 2600 Balance 1206 2468 915 Weight 69.7 kg Multi-Disciplinary Progress Notes: Multi-Disciplinary Progress Notes 06/23/19 13:00 (created 06/23/19 16:01) Case Management Note by Beulah Up DISCHARGE PLAN REVIEWED, NO CHANGE, PLANS TO RETURN HOME TO PRE EPISODIC LEVEL OF [facility]. INDEPENDENT WITH ALL ADL'S. Initialized on 06/23/19 16:01 - END OF NOTE Assessment/Plan (1) Hematochezia Current Visit: No Status: Resolved Code(s): K92.1 - MELENA (2) Sigmoid diverticulitis Current Visit: No Status: Acute Code(s): K57.32 - DVTRCLI OF LG INT W/O PERFORATION OR ABSCESS W/O BLEEDING (3) Nausea & vomiting Current Visit: Yes Status: Resolved Code(s): R11.2 - NAUSEA WITH VOMITING, UNSPECIFIED (4) Nausea alone Current Visit: Yes Status: Acute (5) Hypertension Current Visit: No Status: Chronic Qualifiers: Hypertension type: essential hypertension Qualified Code(s): I10 - Essential (primary) hypertension Code(s): I10 - ESSENTIAL (PRIMARY) HYPERTENSION
[2019-06-24] MEDS: Sodium Chloride 0.9% W/ 20 mEq KCl/LITER 1,000 ML IV SCH (14:17)
[2019-06-24] MEDS: ULTRAM 50 MG PO PRN (20:00)
[2019-06-24] MEDS: Zocor 10MG PO SCH (21:37)
[2019-06-25] MEDS: Sodium Chloride 0.9% W/ 20 mEq KCl/LITER 1,000 ML IV SCH (02:53)
[2019-06-25] MEDS: Carafate SUSPENSION 1000 MG/10 ML PO SCH ×2 (06:28→12:02)
[2019-06-25] MEDS: Vitamin B-12 500 MCG PO SCH (09:45)
[2019-06-25] MEDS: CLARITIN 10 MG PO SCH (09:45)
[2019-06-25] MEDS: NORVASC 5 MG PO SCH (09:45)
[2019-06-25] MEDS: Cozaar 50 MG PO SCH (09:46)
[2019-06-25] MEDS: FLAGYL 500 MG IVPB 500 MG/100 ML BAG IV SCH (09:46)
[2019-06-25] MEDS: THERAGRAN MULTIVITAMIN PO SCH (09:46)
[2019-06-25] MEDS: Levofloxacin 500MG/100ML D5W 500 MG/100 ML BAG IV SCH (10:29)
--- NOTE | 2019-06-25 12:16 | PCM.DCORD ---
- Discharge Disposition: Home, Self-Care Condition: Stable Prescriptions: New Sucralfate 1000 mg/10 ml [Carafate SUSPENSION 1000 MG/10 ML] 1,000 mg PO ACHS #200 ml Continue Amlodipine Besylate 5 mg [Norvasc 5 mg] 5 mg PO DAILY Hydrochlorothiazide 25 mg [hydroDIURIL 25 MG] 25 mg PO DAILY Cetirizine HCl [Zyrtec] 10 mg PO DAILY Aspirin EC 81 mg [Ecotrin 81 mg] 81 mg PO DAILY Losartan Potassium 50 mg [Cozaar 50 MG] 50 mg PO DAILY Atorvastatin Calcium 5 mg PO QHS Docusate Sodium 100 mg [Colace 100 MG] 100 mg PO BID #14 cap Multivit-Min/Iron/Folic/Lutein [Centrum Silver Women Tablet] 1 each PO DAILY Non-Formulary Drug [Non-Formulary Item] 1 each PO QHS Non-Formulary Drug [Non-Formulary Item] 1 each PO DAILY Non-Formulary Drug [Non-Formulary Item] 1 each PO QHS Discontinued Ciprofloxacin [Cipro 500 MG] 500 mg PO BID #20 tablet Metronidazole 500 mg [Flagyl 500 MG] 500 mg PO QID #40 tablet Cefdinir 300 mg PO BID Instructions: High Fiber Diet, Diverticulitis (DC) Follow up with: BRIAN AGUILERA MD [ASSOCIATE STAFF] - 07/19/19 10:05 am ISABEL LIRIANO DO [Primary Care Provider] - 07/01/19 9:50 am
[2019-06-25 12:50] VITALS: BP 159/71; PULSE 82; O2SAT 96
--- NOTE | 2019-06-27 09:36 | CONS ---
CONSULT DATE: 06/23/2019 REASON FOR CONSULT: Diverticulitis persistent. HISTORY: The patient is well known to myself particularly Dr. Mclean. She was here for over week with diverticulitis. She is quite sensitive to antibiotics. She gets diarrhea readily. Her white count is elevated. She has been started on antibiotics. Her diet has been put on hold. PHYSICAL EXAMINATION: ABDOMEN: She had moderate abdominal distention. She had no palpable mass. She did have some firmness and some fullness in the left upper quadrant almost up to the umbilicus. IMPRESSION: She certainly appeared to be in discomfort. The patient has persistent recurrent diverticulitis. She is scheduled to have a scope in about four weeks. It is unclear what her clinical course will be to date. She was seen additionally on 06/24/2019 and she was certainly much better. There is hope that she will get through this episode without surgical intervention.
== END 2019-06-25 13:02 | disposition home or self-care (01) ==
LOC: MED SURG 11:58
PROVIDERS: ADMIT Family Medicine; ATTEND Family Medicine
DX: K92.1 Melena (principal); K57.32 Diverticulitis of large intestine without perforation or abscess without bleeding; E03.9 Hypothyroidism, unspecified; R11.2 Nausea with vomiting, unspecified; I10 Essential (primary) hypertension; E11.9 Type 2 diabetes mellitus without complications; Z79.899 Other long term (current) drug therapy
CPT/HCPCS: 36415; 80053; 81001; 82150; 83690; 85025; 87086; 87338; 87493; 87507; G0378; J1956; J2550; J3480; A9270-GY

== ENCOUNTER 2020-12-08 09:35 | Emergency (ER) | payer MEDICARE ==
[2020-12-08 11:17] LABS: ALBUMIN 4.3 g/dL (3.5-5.0); ALKALINE PHOSPHATASE 69 U/L (38-126); BLOOD UREA NITROGEN 17 mg/dL (7-17); CHLORIDE 101 mmol/L (98-107); Calcium 9.4 mg/dL (8.4-10.2); Carbon Dioxide 24 mmol/L (22-30); Creatinine 1 0.82 mg/dL (0.52-1.04); EST GLOMERULAR FILTRATION RATE > 60.0 ML/MIN; Glucose 120 mg/dL (74-106); Hematocrit 38.2 % (35-47); Hemoglobin 12.2 gm/dl (12.0-16.0); MAGNESIUM 2.1 mg/dL (1.6-2.3); Mean Cell Volume 95.3 fl (78-100); Mean Corpuscular Hemoglobin 30.4 pg (26-32); Mean Corpuscular Hgb Concent. 31.9 g/dl (32-36); Mean Platelet Volume 10.7 fl (7.5-11.0); Platelet Count 197 K/mm3 (150-450); Potassium 4.5 mmol/L (3.5-5.1); Red Blood Count 4.01 M/mm3 (4.1-5.4); Red Cell Distribution Width 14.8 % (11.5-14.0); SGOT/AST 53 U/L (14-36); SGPT/ALT 17 U/L (0-35); SODIUM 134 mmol/L (137-145); Total Protein 7.1 g/dL (6.3-8.2); White Blood Count 9.8 K/mm3 (4.0-10.5)
[2020-12-08] MEDS ORDERED: Catapres 0.1 MG PO ONE (12:04)
[2020-12-08] MEDS ORDERED: Catapres 0.1 MG ONE (12:08)
--- NOTE | 2020-12-08 12:19 | XRAY ---
Indication: General weakness. Comparison: None Portable chest clear. Heart and mediastinal structures within normal limits. Bony thorax intact with mild degenerative changes and left shoulder arthroplasty. Impression: Nonacute chest with chronic features.
--- NOTE | 2020-12-08 12:21 | XRAY ---
Indication: General weakness. Hypertension. Multiple contiguous axial images obtained through the head without contrast. Comparison: None Age-appropriate global atrophy and minimal periventricular degenerative micro-ischemia bilaterally. No acute intracranial hemorrhage, abnormal extra-axial fluid collection, or mass effect. Bony calvarium intact. There is complete opacification of the left maxillary sinus. Remaining paranasal sinuses and mastoid air cells are clear. Impression: Nonacute senile brain. Incidental left maxillary sinus disease. Comment: Preliminary interpretation was made by [facility]. No critical discrepancy.
[2020-12-08 12:32] LABS: Appearance SLIGHTLY CLOUDY (CLEAR); Bilirubin NEGATIVE (NEGATIVE); Blood NEGATIVE Ery/ul (0-5); Glucose NEGATIVE (NEGATIVE); Ketones NEGATIVE (NEGATIVE); Leukocyte Esterase NEGATIVE (NEGATIVE); Mucus SLIGHT /HPF (NEGATIVE); Nitrite NEGATIVE (NEGATIVE); Protein,Urine Dip NEGATIVE (Negative); Specific Gravity 1.012 (1.005-1.025); Urobilinogen NEGATIVE mg/dL (0-1)
[2020-12-08 12:57] LABS: Eosinophil 1 % (0.00-3.0); Lymphocytes 32 % (24-44); Monocyte 5 % (0.0-12.0); Neutrophils 62 % (36.0-66.0); Total Cells Counted 100
[2020-12-08 12:58] LABS: Platelet Estimate NORMAL (NORMAL)
--- NOTE | 2020-12-08 13:41 | ERPHSYRPT ---
- History of Present Illness Time Seen by Provider: 12/08/20 10:09 Source: patient Exam Limitations: no limitations Patient Subjective Stated Complaint: HTN Triage Nursing Assessment: Patient ambulated back to ED and transferred self to bed. Patient A+O X3. Patient's skin pink, warm and dry. Patient complains of HTN. Patient took her blood pressure this morning at 0530 was 176/97 and at 0730 167/108. Patient denies chest pain, but will have occasional SOB. Lungs clear a/p cynthia. Patient complains of dizziness and just not feeling well overall. Physician History: 80 years old female with history of hypertension, hyperlipidemia presented in the ER with chief complaint of elevated blood pressure this morning. Patient has been checking it regularly and today it was 176 systolic prior to arrival. Patient report feeling some heaviness in the head with minimal headache and feeling of generalized weakness fatigue. Denies any visual symptoms. Denies any focal numbness tingling or weakness. No chest pain palpitations or shortness of breath. Denies any abdominal pain nausea or vomiting. No fever or chills reported. Reports it is feeling better now. Timing/Duration: today, resolved prior to arrival, gradual onset, improved Severity: moderate Associated Symptoms: headaches, weakness, No nausea, No vomiting, No abdominal pain, No shortness of breath, No heartburn, No cough, No chest pain, No fever, No loss of appetite, No syncope, No seizure Allergies/Adverse Reactions: amoxicillin Allergy (Verified 12/08/20 09:43) codeine Allergy (Verified 12/08/20 09:43) dicyclomine [From Bentyl] Allergy (Verified 12/08/20 09:43) eszopiclone [From Lunesta] Allergy (Verified 12/08/20 09:43) gabapentin Allergy (Verified 12/08/20 09:43) morphine Allergy (Verified 12/08/20 09:43) propoxyphene [From Darvon] Allergy (Verified 12/08/20 09:43) tetracycline Allergy (Verified 12/08/20 09:43) Home Medications: Amlodipine Besylate 5 mg [Norvasc 5 mg] 5 mg PO DAILY 06/20/19 [History] Aspirin EC 81 mg [Ecotrin 81 mg] 81 mg PO DAILY 06/20/19 [History] Atorvastatin Calcium 5 mg PO QHS 06/20/19 [History] Losartan Potassium 50 mg [Cozaar 50 MG] 50 mg PO DAILY 06/20/19 [History] Multivit-Min/Iron/Folic/Lutein [Centrum Silver Women Tablet] 1 each PO DAILY 1 [History] Non-Formulary Drug [Non-Formulary Item] 1 each PO DAILY 06/21/19 [History] Non-Formulary Drug [Non-Formulary Item] 1 each PO QHS 06/21/19 [History] Non-Formulary Drug [Non-Formulary Item] 1 each PO QHS 06/21/19 [History] Celecoxib [Celebrex] 1 cap PO DAILY 12/08/20 [History] Gabapentin 1 cap PO TID 12/08/20 [History] Hx Tetanus, Diphtheria Vaccination/Date Given: No Hx Influenza Vaccination/Date Given: Yes Hx Pneumococcal Vaccination/Date Given: No Immunizations Up to Date: Yes Travel Risk - International Travel Have you traveled outside of the country in past 3 weeks: No - Coronavirus Screening Are you exhibiting any of the following symptoms?: No Close contact with a COVID-19 positive Pt in past 14-21 Days: No - Vaccine Status Have you recieved a Covid-19 vaccination: Yes 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 - Vaccination Dates Date of 2cond Vaccination (if applicable): 11/03/2020 - Review of Systems Constitutional: No Symptoms Eyes: No Symptoms Ears, Nose, & Throat: No Symptoms Respiratory: No Symptoms Cardiac: No Symptoms Abdominal/Gastrointestinal: No Symptoms Genitourinary Symptoms: No Symptoms Musculoskeletal: Arthralgias Skin: No Symptoms Neurological: Headache Psychological: No Symptoms Endocrine: No Symptoms Hematologic/Lymphatic: No Symptoms Immunological/Allergic: No Symptoms - Past Medical History Pertinent Past Medical History: Yes Neurological History: No Pertinent History Cardiac History: Hypertension Respiratory History: No Pertinent History Endocrine Medical History: Hypothyroidism, Other Musculoskeletal History: Osteoarthritis GI Medical History: Diverticulitis History: No Pertinent History Psycho-Social History: Anxiety Female Reproductive Disorders: No Pertinent History Other Medical History: BORDERLINE DMII, DOES NOT TAKE MEDICATION FOR THIS. SEE LIST FOR MEDICATIONS TAKEN. 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 - Social History Smoking Status: Never smoker Exposure to second hand smoke: No Drug Use: none Patient Lives Alone: No - Female History Hx Now: No - Nursing Vital Signs Nursing Vital Signs: Initial Vital Signs Temperature 97.6 F 12/08/20 09:43 Pulse Rate 72 12/08/20 09:43 Respiratory Rate 18 12/08/20 09:43 Blood Pressure 203/94 12/08/20 09:43 O2 Sat by Pulse Oximetry 93 L 12/08/20 09:43 Pain Scale Pain Intensity 0 - Physical Exam General Appearance: no apparent distress Eye Exam: PERRL/EOMI, eyes nml inspection Ears, Nose, Throat Exam: normal ENT inspection, TMs normal, pharynx normal Neck Exam: normal inspection, non-tender, supple, full range of motion Respiratory Exam: normal breath sounds, lungs clear Cardiovascular Exam: normal heart sounds Gastrointestinal/Abdomen Exam: soft, normal bowel sounds Back Exam: normal inspection, normal range of motion Extremity Exam: normal inspection, normal range of motion, pelvis stable Neurologic Exam: alert, oriented x 3, cooperative Skin Exam: normal color SpO2 Interpretation: normal SpO2: 94 O2 Delivery: Room Air - Course EKG Interpreted by Me: RATE (74), Sinus Rhythm, Left Kindred Deviation, NORMAL INTERVALS, Right Bundle Branch Block, Q-wave (Inferior leads), Non-specific ST Changes, Other (Mobitz type I block. LVH. Left anterior fascicular block) Ordered Tests: Active Orders 24 hr Category Date Time Status Classification Officer STAT Care 12/08/20 10:24 Active EKG-ER Only STAT Care 12/08/20 10:24 Active IV Insertion STAT Care 12/08/20 10:24 Active CHEST 1 VIEW (PORTABLE) Stat Exams 12/08/20 10:24 Completed HEAD WITHOUT CONTRAST [CT] Stat Exams 12/08/20 10:24 Completed CBC W DIFF Stat Lab 12/08/20 10:24 Completed CMP Stat Lab 12/08/20 10:24 Completed Lactic Acid Stat Lab 12/08/20 10:30 Completed MAGNESIUM Stat Lab 12/08/20 10:24 Completed Manual Differential NC Stat Lab 12/08/20 10:24 Completed TROPONIN Q3H Lab 12/08/20 10:45 Completed TROPONIN Q3H Lab 12/08/20 13:30 Received TROPONIN Q3H Lab 12/08/20 16:30 Ordered TROPONIN Q3H Lab 12/08/20 19:30 Ordered TROPONIN Q3H Lab 12/08/20 22:30 Ordered UA W/RFX UR CULTURE Stat Lab 12/08/20 12:00 Completed Medication Summary Discontinued Medications Generic Name Dose Route Start Last Admin Trade Name Javed PRN Reason Stop Dose Admin Clonidine 0.1 mg 12/08/20 12:04 12/08/20 12:09 Catapres 0.1 Mg PO 12/08/20 12:05 0.1 mg STAT ONE Administration Clonidine Confirm 12/08/20 12:08 Catapres 0.1 Mg Administered 12/08/20 12:09 Dose 0.1 mg .ROUTE .STSuperDimension-MED ONE Lab/Rad Data: Laboratory Result Diagrams 12/08/20 10:24 12/08/20 10:24 Laboratory Results 12/08/20 12/08/20 12/08/20 Range/Units 12:00 10:45 10:30 WBC (4.0-10.5) K/mm3 RBC (4.1-5.4) M/mm3 Hgb (12.0-16.0) gm/dl Hct (35-47) % MCV (78-100) fl MCH (26-32) pg MCHC (32-36) g/dl RDW (11.5-14.0) % Plt Count (150-450) K/mm3 MPV (7.5-11.0) fl Segmented Neutrophils (36.0-66.0) % Lymphocytes (Manual) (24-44) % Monocytes (Manual) (0.0-12.0) % Eosinophils (Manual) (0.00-3.0) % Platelet Estimate (NORMAL) RBC Morphology Sodium (137-145) mmol/L Potassium (3.5-5.1) mmol/L Chloride (98-107) mmol/L Carbon Dioxide (22-30) mmol/L Anion Gap (5-15) MEQ/L BUN (7-17) mg/dL Creatinine (0.52-1.04) mg/dL Estimated GFR ML/MIN Glucose (74-106) mg/dL Lactic Acid 1.0 (0.4-2.0) Calcium (8.4-10.2) mg/dL Magnesium (1.6-2.3) mg/dL Total Bilirubin (0.2-1.3) mg/dL AST (14-36) U/L ALT (0-35) U/L Alkaline Phosphatase (38-126) U/L Troponin I < 0.012 (0.000-0.034) ng/mL Serum Total Protein (6.3-8.2) g/dL Albumin (3.5-5.0) g/dL Urine Color YELLOW (YELLOW) Urine Appearance SLIGHTLY CLOUDY (CLEAR) Urine pH 5.0 (5-6) Ur Specific [place] 1.012 (1.005-1.025) Urine Protein NEGATIVE (Negative) Urine Ketones NEGATIVE (NEGATIVE) Urine Blood NEGATIVE (0-5) Cale/ul Urine Nitrite NEGATIVE (NEGATIVE) Urine Bilirubin NEGATIVE (NEGATIVE) Urine Urobilinogen NEGATIVE (0-1) mg/dL Ur Leukocyte Esterase NEGATIVE (NEGATIVE) Urine WBC (Auto) NONE (0-5) /HPF Urine RBC (Auto) NONE (0-2) /HPF U Epithel Cells (Auto) NONE (FEW) /HPF Urine Bacteria (Auto) NONE (NEGATIVE) /HPF Urine Mucus (Auto) SLIGHT (NEGATIVE) /HPF Urine Culture Reflexed NO (NO) Urine Glucose NEGATIVE (NEGATIVE) mg/dL 12/08/20 12/08/20 Range/Units 10:24 10:24 WBC 9.8 (4.0-10.5) K/mm3 RBC 4.01 L (4.1-5.4) M/mm3 Hgb 12.2 (12.0-16.0) gm/dl Hct 38.2 (35-47) % MCV 95.3 (78-100) fl MCH 30.4 (26-32) pg MCHC 31.9 L (32-36) g/dl RDW 14.8 H (11.5-14.0) % Plt Count 197 (150-450) K/mm3 MPV 10.7 (7.5-11.0) fl Segmented Neutrophils 62 (36.0-66.0) % Lymphocytes (Manual) 32 (24-44) % Monocytes (Manual) 5 (0.0-12.0) % Eosinophils (Manual) 1 (0.00-3.0) % Platelet Estimate NORMAL (NORMAL) RBC Morphology NORMAL Sodium 134 L (137-145) mmol/L Potassium 4.5 (3.5-5.1) mmol/L Chloride 101 (98-107) mmol/L Carbon Dioxide 24 (22-30) mmol/L Anion Gap 14.0 (5-15) MEQ/L BUN 17 (7-17) mg/dL Creatinine 0.82 (0.52-1.04) mg/dL Estimated GFR > 60.0 ML/MIN Glucose 120 H (74-106) mg/dL Lactic Acid (0.4-2.0) Calcium 9.4 (8.4-10.2) mg/dL Magnesium 2.1 (1.6-2.3) mg/dL Total Bilirubin 0.80 (0.2-1.3) mg/dL AST 53 H (14-36) U/L ALT 17 (0-35) U/L Alkaline Phosphatase 69 (38-126) U/L Troponin I (0.000-0.034) ng/mL Serum Total Protein 7.1 (6.3-8.2) g/dL Albumin 4.3 (3.5-5.0) g/dL Urine Color (YELLOW) Urine Appearance (CLEAR) Urine pH (5-6) Ur Specific Aurora (1.005-1.025) Urine Protein (Negative) Urine Ketones (NEGATIVE) Urine Blood (0-5) Cale/ul Urine Nitrite (NEGATIVE) Urine Bilirubin (NEGATIVE) Urine Urobilinogen (0-1) mg/dL Ur Leukocyte Esterase (NEGATIVE) Urine WBC (Auto) (0-5) /HPF Urine RBC (Auto) (0-2) /HPF U Epithel Cells (Auto) (FEW) /HPF Urine Bacteria (Auto) (NEGATIVE) /HPF Urine Mucus (Auto) (NEGATIVE) /HPF Urine Culture Reflexed (NO) Urine Glucose (NEGATIVE) mg/dL - Progress Progress: improved, re-examined Progress Note: 12/08/20 14:00 80 years old is evaluated for elevated blood pressure. She is given clonidine and her blood pressure is improving and currently in 160s. Patient is asymptomatic throughout stay in the ER. I have obtained CT head which is negative. Chest x-ray negative for any acute findings. EKG showed sinus rhythm with second-degree type I block. I would start her on low-dose beta- blockers.we will help with the pressure as well. She has a negative troponin. No chest pain. Unremarkable chemistries grossly. She is offered observation admission but she wants to go home. She is advised to follow-up with cardiology. Discussed signs symptoms of worsening needing return to ER which he seems understanding. Will see patient in: hospital (observation) Counseled pt/family regarding: lab results, diagnosis, need for follow-up, rad results - Departure Departure Disposition: Home Clinical Impression: Uncontrolled hypertension, Second degree type I atrioventricular block Condition: Stable Critical Care Time: No Referrals: ISABEL LIRIANO DO [Primary Care Provider] - (In 2 days for reevaluation.) YOLI AVITIA [ACTIVE STAFF] - (In 2 days for reevaluation) Instructions: High Blood Pressure (DC), Heart Block, Adult (DC) Additional Instructions: Follow-up with primary care and cardiology for reevaluation. Monitor your blood pressure 3-4 times a day, keep a log and follow-up with primary care. Return to ER for worsening Prescriptions: Metoprolol Tartrate 25 mg [Lopressor 25MG Tab] 12.5 mg PO BID 30 Days #15 tab
[2020-12-08 14:14] VITALS: BP 168/80; PULSE 63; O2SAT 92
== END 2020-12-08 14:31 | disposition home or self-care (01) ==
LOC: ED 09:35
DX: I10 Essential (primary) hypertension (principal); I44.1 Atrioventricular block, second degree; Z79.899 Other long term (current) drug therapy; E03.9 Hypothyroidism, unspecified
CPT/HCPCS: 36000; 36415; 70450; 71045; 80053; 81001; 83605; 83735; 84484; 85025; 93005; 93041; 99284; A9270-GY

== ENCOUNTER 2021-04-11 10:26 | Emergency (ER) | payer MEDICARE ==
--- NOTE | 2021-04-11 10:39 | ERPHSYRPT ---
- History of Present Illness Time Seen by Provider: 04/11/21 10:38 Source: patient, family Exam Limitations: no limitations Physician History: This is an 80-year-old white female with history of hypertension, anxiety, elevated cholesterol, and osteoarthritis. She woke up this morning and feeling a little dizzy and has generalized weakness. She denies fever. She has had several similar episodes in the past. She is on amlodipine and losartan treat her hypertension. In review of old records, the patient's blood pressure responded well to clonidine. Patient denies chest pain. She denies shortness of breath. She has has no fevers chills or diarrhea. She has no nausea or vomiting. She has no abdominal pain. Her primary care doctor is Dr. Liriano. 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 Timing/Duration: today Severity: moderate Associated Symptoms: weakness, No nausea, No vomiting, No abdominal pain, No shortness of breath, No chest pain, No fever Allergies/Adverse Reactions: amoxicillin Allergy (Verified 04/11/21 10:44) codeine Allergy (Verified 04/11/21 10:44) dicyclomine [From Bentyl] Allergy (Verified 04/11/21 10:44) eszopiclone [From Lunesta] Allergy (Verified 04/11/21 10:44) gabapentin Allergy (Verified 04/11/21 10:44) morphine Allergy (Verified 04/11/21 10:44) propoxyphene [From Darvon] Allergy (Verified 04/11/21 10:44) tetracycline Allergy (Verified 04/11/21 10:44) Home Medications: Amlodipine Besylate 5 mg [Norvasc 5 mg] 5 mg PO DAILY 06/20/19 [History] Aspirin EC 81 mg [Ecotrin 81 mg] 81 mg PO DAILY 06/20/19 [History] Atorvastatin Calcium 5 mg PO QHS 06/20/19 [History] Losartan Potassium 50 mg [Cozaar 50 MG] 50 mg PO DAILY 06/20/19 [History] Multivit-Min/Iron/Folic/Lutein [Centrum Silver Women Tablet] 1 each PO DAILY 06/21/19 [History] Non-Formulary Drug [Non-Formulary Item] 1 each PO DAILY 06/21/19 [History] Non-Formulary Drug [Non-Formulary Item] 1 each PO QHS 06/21/19 [History] Non-Formulary Drug [Non-Formulary Item] 1 each PO QHS 06/21/19 [History] Celecoxib [Celebrex] 1 cap PO DAILY 12/08/20 [History] Gabapentin 1 cap PO TID 12/08/20 [History] Hx Tetanus, Diphtheria Vaccination/Date Given: No Hx Influenza Vaccination/Date Given: Yes Hx Pneumococcal Vaccination/Date Given: No Travel Risk - International Travel Have you traveled outside of the country in past 3 weeks: No - Coronavirus Screening Are you exhibiting any of the following symptoms?: No Close contact with a COVID-19 positive Pt in past 14-21 Days: No - Vaccine Status Have you recieved a Covid-19 vaccination: Yes [employer]: Moderna - Vaccination Dates Date of 2cond Vaccination (if applicable): 11/03/2020 - Review of Systems Constitutional: Weakness Eyes: No Symptoms Ears, Nose, & Throat: No Symptoms Respiratory: No Symptoms Cardiac: No Symptoms Abdominal/Gastrointestinal: No Symptoms Genitourinary Symptoms: No Symptoms Musculoskeletal: No Symptoms Skin: No Symptoms Neurological: No Symptoms Psychological: No Symptoms Endocrine: No Symptoms Hematologic/Lymphatic: No Symptoms Immunological/Allergic: No Symptoms All Other Systems: Reviewed and Negative - Past Medical History Pertinent Past Medical History: Yes Neurological History: No Pertinent History Cardiac History: Hypertension Respiratory History: No Pertinent History Endocrine Medical History: Hypothyroidism, Other Musculoskeletal History: Osteoarthritis GI Medical History: Diverticulitis History: No Pertinent History Psycho-Social History: Anxiety Female Reproductive Disorders: No Pertinent History Other Medical History: BORDERLINE DMII, DOES NOT TAKE MEDICATION FOR THIS. SEE LIST FOR MEDICATIONS TAKEN. 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 - Social History Smoking Status: Never smoker Exposure to second hand smoke: No Drug Use: none Patient Lives Alone: No - Nursing Vital Signs Nursing Vital Signs: Initial Vital Signs Temperature 97.3 F 04/11/21 10:33 Pulse Rate 56 L 04/11/21 10:33 Respiratory Rate 19 04/11/21 10:33 Blood Pressure 201/85 04/11/21 10:33 O2 Sat by Pulse Oximetry 97 04/11/21 10:33 Pain Scale Pain Intensity 0 - Physical Exam General Appearance: no apparent distress, alert, anxiety Eye Exam: PERRL/EOMI, eyes nml inspection Ears, Nose, Throat Exam: normal ENT inspection, moist mucous membranes Neck Exam: normal inspection, non-tender, supple, full range of motion Respiratory Exam: normal breath sounds, lungs clear, airway intact, No chest tenderness, No respiratory distress Cardiovascular Exam: regular rate/rhythm, normal heart sounds, normal peripheral pulses, murmur Gastrointestinal/Abdomen Exam: soft, normal bowel sounds, No tenderness Pelvic Exam: not done Rectal Exam: not done Back Exam: normal inspection, normal range of motion, No CVA tenderness Extremity Exam: normal inspection, normal range of motion, pelvis stable Neurologic Exam: alert, oriented x 3, cooperative, sail maker II-XII nml as tested, normal mood/affect, nml cerebellar function, nml station & gait, sensation nml Skin Exam: normal color, warm, dry Lymphatic Exam: No adenopathy SpO2 Interpretation: normal O2 Delivery: Room Air - Course Nursing assessment & vital signs reviewed: Yes EKG Interpreted by Me: RATE (54), Sinus Rhythm, LAFB, Right Bundle Branch Block, Other (There is short WA interval and probable left ventricular hypertrophy. When compared to EKG dated 12/10/2020, there are no changes whatsoever.) Ordered Tests: Active Orders 24 hr Category Date Time Status Replenishment Analyst STAT Care 04/11/21 11:01 Active EKG-ER Only STAT Care 04/11/21 11:00 Active IV Insertion STAT Care 04/11/21 11:00 Active Pulse Oximetry (ED) STAT Care 04/11/21 11:00 Active CBC W DIFF Stat Lab 04/11/21 11:12 Completed CMP Stat Lab 04/11/21 11:12 Completed POCT GLUCOSE Stat Lab 04/11/21 10:55 Completed PROTIME WITH INR Stat Lab 04/11/21 11:20 Completed TROPONIN Q3H Lab 04/11/21 11:12 Completed TROPONIN Q3H Lab 04/11/21 14:58 Completed TROPONIN Q3H Lab 04/11/21 17:15 Ordered TROPONIN Q3H Lab 04/11/21 20:15 Ordered TROPONIN Q3H Lab 04/11/21 23:15 Ordered UA W/RFX UR CULTURE Stat Lab 04/11/21 13:16 Completed Medication Summary Discontinued Medications Generic Name Dose Route Start Last Admin Trade Name Javed PRJodi Reason Stop Dose Admin Clonidine 0.2 mg 04/11/21 11:10 04/11/21 12:17 Catapres 0.1 Mg PO 04/11/21 11:11 0.2 mg STAT ONE Administration Clonidine Confirm 04/11/21 12:16 Catapres 0.1 Mg Administered 04/11/21 12:17 Dose 0.2 mg .ROUTE .[facility] ONE Enalaprilat 1.25 mg 04/11/21 12:38 04/11/21 13:27 Vasotec I.V. 2.5 Mg IV 04/11/21 12:39 1.25 mg STAT ONE Administration Enalaprilat Confirm 04/11/21 13:25 Vasotec I.V. 2.5 Mg Administered 04/11/21 13:26 Dose 2.5 mg IV .STK-MED ONE Lab/Rad Data: Laboratory Result Diagrams 04/11/21 11:12 04/11/21 11:12 Laboratory Results 04/11/21 04/11/21 04/11/21 Range/Units 14:58 13:16 11:20 WBC (4.0-10.5) K/mm3 RBC (4.1-5.4) M/mm3 Hgb (12.0-16.0) gm/dl Hct (35-47) % MCV (78-100) fl MCH (26-32) pg MCHC (32-36) g/dl RDW (11.5-14.0) % Plt Count (150-450) K/mm3 MPV (7.5-11.0) fl Gran % (36.0-66.0) % Eos # (Auto) (0-0.5) Absolute Lymphs (auto) (1.0-4.6) Absolute Monos (auto) (0.0-1.3) Lymphocytes % (24.0-44.0) % Monocytes % (0.0-12.0) % Eosinophils % (0.00-5.0) % Basophils % (0.0-0.4) % Absolute Granulocytes (1.4-6.9) Basophils # (0-0.4) PT 13.2 H (9.4-12.5) SECONDS INR 1.12 (0.8-3.0) Sodium (137-145) mmol/L Potassium (3.5-5.1) mmol/L Chloride (98-107) mmol/L Carbon Dioxide (22-30) mmol/L Anion Gap (5-15) MEQ/L BUN (7-17) mg/dL Creatinine (0.52-1.04) mg/dL Estimated GFR ML/MIN Glucose (74-106) mg/dL POC Glucometer (74 to 106) mg/dL Calcium (8.4-10.2) mg/dL Total Bilirubin (0.2-1.3) mg/dL AST (14-36) U/L ALT (0-35) U/L Alkaline Phosphatase (38-126) U/L Troponin I 0.028 (0.000-0.034) ng/mL Serum Total Protein (6.3-8.2) g/dL Albumin (3.5-5.0) g/dL Urine Color YELLOW (YELLOW) Urine Appearance CLEAR (CLEAR) Urine pH 7.0 (5-6) Ur Specific [place] 1.009 (1.005-1.025) Urine Protein NEGATIVE (Negative) Urine Ketones NEGATIVE (NEGATIVE) Urine Blood NEGATIVE (0-5) Cale/ul Urine Nitrite NEGATIVE (NEGATIVE) Urine Bilirubin NEGATIVE (NEGATIVE) Urine Urobilinogen NEGATIVE (0-1) mg/dL Ur Leukocyte Esterase TRACE (NEGATIVE) Urine WBC (Auto) 0-2 (0-5) /HPF Urine RBC (Auto) NONE (0-2) /HPF U Epithel Cells (Auto) NONE (FEW) /HPF Urine Bacteria (Auto) NONE (NEGATIVE) /HPF Urine Mucus (Auto) SLIGHT (NEGATIVE) /HPF Urine Culture Reflexed NO (NO) Urine Glucose NEGATIVE (NEGATIVE) mg/dL 04/11/21 04/11/21 04/11/21 Range/Units 11:12 11:12 11:12 WBC 14.2 H (4.0-10.5) K/mm3 RBC 4.12 (4.1-5.4) M/mm3 Hgb 12.6 (12.0-16.0) gm/dl Hct 39.2 (35-47) % MCV 95.1 (78-100) fl MCH 30.6 (26-32) pg MCHC 32.1 (32-36) g/dl RDW 13.4 (11.5-14.0) % Plt Count 239 (150-450) K/mm3 MPV 9.3 (7.5-11.0) fl Gran % 61.3 (36.0-66.0) % Eos # (Auto) 0.24 (0-0.5) Absolute Lymphs (auto) 4.01 (1.0-4.6) Absolute Monos (auto) 1.21 (0.0-1.3) Lymphocytes % 28.3 (24.0-44.0) % Monocytes % 8.5 (0.0-12.0) % Eosinophils % 1.7 (0.00-5.0) % Basophils % 0.2 (0.0-0.4) % Absolute Granulocytes 8.68 H (1.4-6.9) Basophils # 0.03 (0-0.4) PT (9.4-12.5) SECONDS INR (0.8-3.0) Sodium 134 L (137-145) mmol/L Potassium 3.8 (3.5-5.1) mmol/L Chloride 99 (98-107) mmol/L Carbon Dioxide 25 (22-30) mmol/L Anion Gap 13.7 (5-15) MEQ/L BUN 12 (7-17) mg/dL Creatinine 0.90 (0.52-1.04) mg/dL Estimated GFR > 60.0 ML/MIN Glucose 126 H (74-106) mg/dL POC Glucometer (74 to 106) mg/dL Calcium 9.3 (8.4-10.2) mg/dL Total Bilirubin 0.70 (0.2-1.3) mg/dL AST 31 (14-36) U/L ALT 15 (0-35) U/L Alkaline Phosphatase 75 (38-126) U/L Troponin I 0.031 (0.000-0.034) ng/mL Serum Total Protein 6.5 (6.3-8.2) g/dL Albumin 4.1 (3.5-5.0) g/dL Urine Color (YELLOW) Urine Appearance (CLEAR) Urine pH (5-6) Ur Specific [place] (1.005-1.025) Urine Protein (Negative) Urine Ketones (NEGATIVE) Urine Blood (0-5) Cale/ul Urine Nitrite (NEGATIVE) Urine Bilirubin (NEGATIVE) Urine Urobilinogen (0-1) mg/dL Ur Leukocyte Esterase (NEGATIVE) Urine WBC (Auto) (0-5) /HPF Urine RBC (Auto) (0-2) /HPF U Epithel Cells (Auto) (FEW) /HPF Urine Bacteria (Auto) (NEGATIVE) /HPF Urine Mucus (Auto) (NEGATIVE) /HPF Urine Culture Reflexed (NO) Urine Glucose (NEGATIVE) mg/dL 04/11/21 Range/Units 10:55 WBC (4.0-10.5) K/mm3 RBC (4.1-5.4) M/mm3 Hgb (12.0-16.0) gm/dl Hct (35-47) % MCV (78-100) fl MCH (26-32) pg MCHC (32-36) g/dl RDW (11.5-14.0) % Plt Count (150-450) K/mm3 MPV (7.5-11.0) fl Gran % (36.0-66.0) % Eos # (Auto) (0-0.5) Absolute Lymphs (auto) (1.0-4.6) Absolute Monos (auto) (0.0-1.3) Lymphocytes % (24.0-44.0) % Monocytes % (0.0-12.0) % Eosinophils % (0.00-5.0) % Basophils % (0.0-0.4) % Absolute Granulocytes (1.4-6.9) Basophils # (0-0.4) PT (9.4-12.5) SECONDS INR (0.8-3.0) Sodium (137-145) mmol/L Potassium (3.5-5.1) mmol/L Chloride (98-107) mmol/L Carbon Dioxide (22-30) mmol/L Anion Gap (5-15) MEQ/L BUN (7-17) mg/dL Creatinine (0.52-1.04) mg/dL Estimated GFR ML/MIN Glucose (74-106) mg/dL POC Glucometer 123 H (74 to 106) mg/dL Calcium (8.4-10.2) mg/dL Total Bilirubin (0.2-1.3) mg/dL AST (14-36) U/L ALT (0-35) U/L Alkaline Phosphatase (38-126) U/L Troponin I (0.000-0.034) ng/mL Serum Total Protein (6.3-8.2) g/dL Albumin (3.5-5.0) g/dL Urine Color (YELLOW) Urine Appearance (CLEAR) Urine pH (5-6) Ur Specific [place] (1.005-1.025) Urine Protein (Negative) Urine Ketones (NEGATIVE) Urine Blood (0-5) Cale/ul Urine Nitrite (NEGATIVE) Urine Bilirubin (NEGATIVE) Urine Urobilinogen (0-1) mg/dL Ur Leukocyte Esterase (NEGATIVE) Urine WBC (Auto) (0-5) /HPF Urine RBC (Auto) (0-2) /HPF U Epithel Cells (Auto) (FEW) /HPF Urine Bacteria (Auto) (NEGATIVE) /HPF Urine Mucus (Auto) (NEGATIVE) /HPF Urine Culture Reflexed (NO) Urine Glucose (NEGATIVE) mg/dL - Progress Progress: improved, re-examined Progress Note: 04/11/21 15:39 Medical decision-making: This patient states that she is feeling much better at this time. Blood pressure has improved. She has no evidence of any acute cardiac issues. Her urine is not significant for dehydration or infection. Patient's blood sugar is in a sufficient range. Patient desires to be discharged home. We will discharge her to home. 04/11/21 15:40 Counseled pt/family regarding: lab results, diagnosis, need for follow-up, rad results - Departure Departure Disposition: Home Clinical Impression: Hypertension, Weakness Condition: Stable Critical Care Time: Yes Critical Care Time(excluding separately billable procedures): Critical 30-74 mins Referrals: ISABEL LIRIANO DO [Primary Care Provider] - Additional Instructions: Follow-up with your primary prescribing physician tomorrow to make arrangements for reevaluation and further management.
[2021-04-11] MEDS ORDERED: Catapres 0.1 MG PO ONE (11:10)
[2021-04-11 11:16] LABS: Absolute Neutrophil Ct (ANC) 8.68 (1.4-6.9); BASOPHIL % 0.2 % (0.0-0.4); Basophil (Absolute #) 0.03 (0-0.4); Eosinophil % 1.7 % (0.00-5.0); Eosinophil (Absolute #) 0.24 (0-0.5); Hematocrit 39.2 % (35-47); Hemoglobin 12.6 gm/dl (12.0-16.0); Lymphocyte (Absolute #) 4.01 (1.0-4.6); Lymphocytes % 28.3 % (24.0-44.0); Mean Cell Volume 95.1 fl (78-100); Mean Corpuscular Hemoglobin 30.6 pg (26-32); Mean Corpuscular Hgb Concent. 32.1 g/dl (32-36); Mean Platelet Volume 9.3 fl (7.5-11.0); Monocyte (Absolute #) 1.21 (0.0-1.3); Monocytes % 8.5 % (0.0-12.0); Neutrophil % 61.3 % (36.0-66.0); Platelet Count 239 K/mm3 (150-450); Red Blood Count 4.12 M/mm3 (4.1-5.4); Red Cell Distribution Width 13.4 % (11.5-14.0); White Blood Count 14.2 K/mm3 (4.0-10.5)
[2021-04-11 11:39] LABS: ALBUMIN 4.1 g/dL (3.5-5.0); ALKALINE PHOSPHATASE 75 U/L (38-126); ANION GAP 13.7 MEQ/L (5-15); BLOOD UREA NITROGEN 12 mg/dL (7-17); CHLORIDE 99 mmol/L (98-107); Calcium 9.3 mg/dL (8.4-10.2); Carbon Dioxide 25 mmol/L (22-30); EST GLOMERULAR FILTRATION RATE > 60.0 ML/MIN; Glucose 126 mg/dL (74-106); Potassium 3.8 mmol/L (3.5-5.1); SGOT/AST 31 U/L (14-36); SGPT/ALT 15 U/L (0-35); SODIUM 134 mmol/L (137-145); Total Protein 6.5 g/dL (6.3-8.2)
[2021-04-11 11:40] LABS: INR 1.12 (0.8-3.0); PROTIME 13.2 SECONDS (9.4-12.5)
[2021-04-11] MEDS ORDERED: Catapres 0.1 MG ONE (12:16)
[2021-04-11] MEDS ORDERED: VASOTEC I.V. 2.5 MG IV ONE ×2 (12:38→13:25)
[2021-04-11 13:31] LABS: Appearance CLEAR (CLEAR); Bilirubin NEGATIVE (NEGATIVE); Blood NEGATIVE Ery/ul (0-5); Glucose NEGATIVE (NEGATIVE); Ketones NEGATIVE (NEGATIVE); Leukocyte Esterase TRACE (NEGATIVE); Mucus SLIGHT /HPF (NEGATIVE); Nitrite NEGATIVE (NEGATIVE); Protein,Urine Dip NEGATIVE (Negative); Specific Gravity 1.009 (1.005-1.025); Urobilinogen NEGATIVE mg/dL (0-1); WBC 0-2 /HPF (0-5)
[2021-04-11 16:42] VITALS: BP 129/68; PULSE 52; O2SAT 97
== END 2021-04-11 16:43 | disposition home or self-care (01) ==
LOC: ED 10:26
DX: I10 Essential (primary) hypertension (principal); R53.1 Weakness; F41.9 Anxiety disorder, unspecified; Z79.899 Other long term (current) drug therapy; E78.00 Pure hypercholesterolemia, unspecified
CPT/HCPCS: 36000; 36415; 80053; 81001; 82947; 84484; 85025; 85610; 93005; 93041; 93225; 94760; 96374; 99284; 99291; A9270-GY

== ENCOUNTER 2021-04-12 17:57 | Emergency (ER) | payer MEDICARE ==
[2021-04-12] MEDS ORDERED: Zofran 4 MG/2 ML VIAL ONE ×3 (18:08→21:27)
--- NOTE | 2021-04-12 18:25 | ERPHSYRPT ---
- History of Present Illness Time Seen by Provider: 04/12/21 18:20 Source: family, EMS Exam Limitations: no limitations Physician History: Patient is an 80-year-old white female who was seen in the ER yesterday with some hypertension who presents at 1 hour after the onset of change in mental status and neurologic status. She 1 hour ago developed aphasia she has not been following commands she seemed to have weakness on the right side she does have a recent fracture of the left shoulder. Timing/Duration: hour(s) (1) Severity: moderate Character of Deficits: new weakness, impaired speech, unable to speak Deficits: decrease ability to walk, weak (Side) Baseline/Normal Cognition: alert oriented x 3 Current Cognition: poor alertness Associated Symptoms: nausea, vomiting Allergies/Adverse Reactions: amoxicillin Allergy (Verified 04/11/21 10:44) codeine Allergy (Verified 04/11/21 10:44) dicyclomine [From Bentyl] Allergy (Verified 04/11/21 10:44) eszopiclone [From Lunesta] Allergy (Verified 04/11/21 10:44) gabapentin Allergy (Verified 04/11/21 10:44) morphine Allergy (Verified 04/11/21 10:44) propoxyphene [From Darvon] Allergy (Verified 04/11/21 10:44) tetracycline Allergy (Verified 04/11/21 10:44) Home Medications: Amlodipine Besylate 5 mg [Norvasc 5 mg] 5 mg PO DAILY 06/20/19 [History] Aspirin EC 81 mg [Ecotrin 81 mg] 81 mg PO DAILY 06/20/19 [History] Atorvastatin Calcium 5 mg PO QHS 06/20/19 [History] Losartan Potassium 50 mg [Cozaar 50 MG] 50 mg PO DAILY 06/20/19 [History] Multivit-Min/Iron/Folic/Lutein [Centrum Silver Women Tablet] 1 each PO DAILY 06/21/19 [History] Non-Formulary Drug [Non-Formulary Item] 1 each PO DAILY 06/21/19 [History] Non-Formulary Drug [Non-Formulary Item] 1 each PO QHS 06/21/19 [History] Non-Formulary Drug [Non-Formulary Item] 1 each PO QHS 06/21/19 [History] Celecoxib [Celebrex] 1 cap PO DAILY 12/08/20 [History] Gabapentin 1 cap PO TID 12/08/20 [History] Hx Tetanus, Diphtheria Vaccination/Date Given: No Hx Influenza Vaccination/Date Given: Yes Hx Pneumococcal Vaccination/Date Given: No Travel Risk - Vaccine Status Have you recieved a Covid-19 vaccination: Yes Con[employer]: Moderna - Vaccination Dates Date of 2cond Vaccination (if applicable): 11/03/2020 - Review of Systems All Other Systems: Unable due to condition - Past Medical History Pertinent Past Medical History: Yes Neurological History: No Pertinent History Cardiac History: Hypertension Respiratory History: No Pertinent History Endocrine Medical History: Hypothyroidism, Other Musculoskeletal History: Osteoarthritis GI Medical History: Diverticulitis History: No Pertinent History Psycho-Social History: Anxiety Female Reproductive Disorders: No Pertinent History Other Medical History: BORDERLINE DMII, DOES NOT TAKE MEDICATION FOR THIS. SEE LIST FOR MEDICATIONS TAKEN. 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 - Social History Smoking Status: Never smoker Exposure to second hand smoke: No Drug Use: none Patient Lives Alone: No - Nursing Vital Signs Nursing Vital Signs: Initial Vital Signs Temperature 98.5 F 04/12/21 17:59 Pulse Rate 65 04/12/21 17:59 Respiratory Rate 22 04/12/21 17:59 Blood Pressure 169/65 04/12/21 17:59 O2 Sat by Pulse Oximetry 92 L 04/12/21 17:59 Pain Scale Pain Intensity 0 - Walker Coma Scale Best Eye Response (Walker): (4) open spontaneously Best Verbal Response (Walker): (1) no verbal response Best Motor Response ([place]): (5) localizes to pain Walker Total: 10 - Physical Exam General Appearance: severe distress, alert Eye Exam: bilateral eye: normal inspection, PERRL, EOMI Ears, Nose, Throat Exam: normal ENT inspection Neck Exam: normal inspection, supple Respiratory: normal breath sounds, lungs clear, No respiratory distress Cardiovascular: regular rate/rhythm, normal heart sounds Gastrointestinal: soft, normal bowel sounds Pelvic Exam: not done Rectal Exam: deferred Back Exam: normal inspection Extremity Exam: other (Well-healed surgical scars left shoulder. 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 president underwriting Exam: tongue midline Coordination/Gait: normal finger to nose (Unable to test [id number] gait and cerebellar functions due to her condition.) Motor/Sensory: negative Babinski's sign, weak motor strength RUE, weak motor strength RLE Skin Exam: normal color, warm, dry SpO2 Interpretation: normal O2 Delivery: Room Air - Course EKG Interpreted by Me: RATE (64), Sinus Rhythm, Left [place] Deviation, LAFB, Right Bundle Branch Block, Non-specific ST Changes Ordered Tests: Active Orders 24 hr Category Date Time Status Unitizer STAT Care 04/12/21 18:02 Active EKG-ER Only STAT Care 04/12/21 18:01 Active IV Insertion STAT Care 04/12/21 18:01 Active NPO (ED) STAT Care 04/12/21 18:01 Active CHEST 1 VIEW (PORTABLE) Stat Exams 04/12/21 18:02 Taken CTA HEAD W AND/OR WO CONTRAST [CT] Stat Exams 04/12/21 19:19 Ordered HEAD WITHOUT CONTRAST [CT] Stat Exams 04/12/21 18:02 Taken CBC W DIFF Stat Lab 04/12/21 18:30 Completed CMP Routine Lab 04/12/21 18:43 Completed CULTURE,URINE Stat Lab 04/12/21 18:03 Ordered PTT Stat Lab 04/12/21 18:30 Completed TROPONIN Q3H Lab 04/12/21 18:30 Completed TROPONIN Q3H Lab 04/12/21 21:15 Ordered TROPONIN Q3H Lab 04/13/21 00:15 Ordered TROPONIN Q3H Lab 04/13/21 03:15 Ordered TROPONIN Q3H Lab 04/13/21 06:15 Ordered UA W/RFX UR CULTURE Stat Lab 04/12/21 18:01 Ordered Urine Triage Profile Stat Lab 04/12/21 18:01 Ordered Medication Summary Discontinued Medications Generic Name Dose Route Start Last Admin Trade Name Freq PRN Reason Stop Dose Admin Ondansetron HCl Confirm 04/12/21 18:08 Zofran 4 Mg/2 Ml Vial Administered 04/12/21 18:09 Dose 4 mg .ROUTE .[facility] Lab/Rad Data: Laboratory Result Diagrams 04/12/21 18:30 04/12/21 18:43 Laboratory Results 04/12/21 04/12/21 04/12/21 Range/Units 18:43 18:30 18:30 WBC (4.0-10.5) K/mm3 RBC (4.1-5.4) M/mm3 Hgb (12.0-16.0) gm/dl Hct (35-47) % MCV (78-100) fl MCH (26-32) pg MCHC (32-36) g/dl RDW (11.5-14.0) % Plt Count (150-450) K/mm3 MPV (7.5-11.0) fl Gran % (36.0-66.0) % Eos # (Auto) (0-0.5) Absolute Lymphs (auto) (1.0-4.6) Absolute Monos (auto) (0.0-1.3) Lymphocytes % (24.0-44.0) % Monocytes % (0.0-12.0) % Eosinophils % (0.00-5.0) % Basophils % (0.0-0.4) % Absolute Granulocytes (1.4-6.9) Basophils # (0-0.4) APTT 30.1 (25.1-36.5) SECONDS Sodium 131 L (137-145) mmol/L Potassium 3.8 (3.5-5.1) mmol/L Chloride 99 (98-107) mmol/L Carbon Dioxide 21 L (22-30) mmol/L Anion Gap 14.8 (5-15) MEQ/L BUN 12 (7-17) mg/dL Creatinine 0.76 (0.52-1.04) mg/dL Estimated GFR > 60.0 ML/MIN Glucose 130 H (74-106) mg/dL Calcium 9.6 (8.4-10.2) mg/dL Total Bilirubin 0.80 (0.2-1.3) mg/dL AST 35 (14-36) U/L ALT 14 (0-35) U/L Alkaline Phosphatase 76 (38-126) U/L Troponin I 0.018 (0.000-0.034) ng/mL Serum Total Protein 6.6 (6.3-8.2) g/dL Albumin 4.2 (3.5-5.0) g/dL 04/12/21 Range/Units 18:30 WBC 14.1 H (4.0-10.5) K/mm3 RBC 4.26 (4.1-5.4) M/mm3 Hgb 13.0 (12.0-16.0) gm/dl Hct 40.4 (35-47) % MCV 94.8 (78-100) fl MCH 30.5 (26-32) pg MCHC 32.2 (32-36) g/dl RDW 13.6 (11.5-14.0) % Plt Count 236 (150-450) K/mm3 MPV 9.2 (7.5-11.0) fl Gran % 52.1 (36.0-66.0) % Eos # (Auto) 0.26 (0-0.5) Absolute Lymphs (auto) 5.16 H (1.0-4.6) Absolute Monos (auto) 1.31 H (0.0-1.3) Lymphocytes % 36.6 (24.0-44.0) % Monocytes % 9.3 (0.0-12.0) % Eosinophils % 1.8 (0.00-5.0) % Basophils % 0.2 (0.0-0.4) % Absolute Granulocytes 7.35 H (1.4-6.9) Basophils # 0.03 (0-0.4) APTT (25.1-36.5) SECONDS Sodium (137-145) mmol/L Potassium (3.5-5.1) mmol/L Chloride (98-107) mmol/L Carbon Dioxide (22-30) mmol/L Anion Gap (5-15) MEQ/L BUN (7-17) mg/dL Creatinine (0.52-1.04) mg/dL Estimated GFR ML/MIN Glucose (74-106) mg/dL Calcium (8.4-10.2) mg/dL Total Bilirubin (0.2-1.3) mg/dL AST (14-36) U/L ALT (0-35) U/L Alkaline Phosphatase (38-126) U/L Troponin I (0.000-0.034) ng/mL Serum Total Protein (6.3-8.2) g/dL Albumin (3.5-5.0) g/dL - Progress Progress: unchanged (Patient was seen by teleneurology with a diagnosis of a left middle cerebral artery stroke he recommended TPA which we will institute in transfer to [facility] to a higher level of care.) Discussed with : Other (He did consult with Dr. Barraza with us in the ER at [facility] and the patient will be excepted there in transfer. Asked that we inform the family that it may be necessary to transfer to [place] if there is a large clot which requires intervention.) - Departure Departure Disposition: Transfer ([facility] Dr. [facility]) Clinical Impression: Ischemic cerebrovascular accident (CVA) Condition: Critical Critical Care Time: Yes Critical Care Time(excluding separately billable procedures): Critical 30-74 mi ns Referrals: ISABEL LIRIANO DO [Primary Care Provider] -
[2021-04-12 18:49] LABS: Absolute Neutrophil Ct (ANC) 7.35 (1.4-6.9); BASOPHIL % 0.2 % (0.0-0.4); Basophil (Absolute #) 0.03 (0-0.4); Eosinophil % 1.8 % (0.00-5.0); Eosinophil (Absolute #) 0.26 (0-0.5); Hematocrit 40.4 % (35-47); Lymphocyte (Absolute #) 5.16 (1.0-4.6); Lymphocytes % 36.6 % (24.0-44.0); Mean Cell Volume 94.8 fl (78-100); Mean Corpuscular Hemoglobin 30.5 pg (26-32); Mean Corpuscular Hgb Concent. 32.2 g/dl (32-36); Mean Platelet Volume 9.2 fl (7.5-11.0); Monocyte (Absolute #) 1.31 (0.0-1.3); Monocytes % 9.3 % (0.0-12.0); Neutrophil % 52.1 % (36.0-66.0); Platelet Count 236 K/mm3 (150-450); Red Blood Count 4.26 M/mm3 (4.1-5.4); Red Cell Distribution Width 13.6 % (11.5-14.0); White Blood Count 14.1 K/mm3 (4.0-10.5)
[2021-04-12 18:53] LABS: ALBUMIN 4.2 g/dL (3.5-5.0); ALKALINE PHOSPHATASE 76 U/L (38-126); ANION GAP 14.8 MEQ/L (5-15); BLOOD UREA NITROGEN 12 mg/dL (7-17); CHLORIDE 99 mmol/L (98-107); Calcium 9.6 mg/dL (8.4-10.2); Carbon Dioxide 21 mmol/L (22-30); Creatinine 1 0.76 mg/dL (0.52-1.04); EST GLOMERULAR FILTRATION RATE > 60.0 ML/MIN; Glucose 130 mg/dL (74-106); Potassium 3.8 mmol/L (3.5-5.1); SGOT/AST 35 U/L (14-36); SGPT/ALT 14 U/L (0-35); SODIUM 131 mmol/L (137-145); Total Protein 6.6 g/dL (6.3-8.2)
[2021-04-12] MEDS ORDERED: Cathflo Activase 2 MG IV ONE (19:26)
[2021-04-12 19:30] LABS: Slide Review 1 YES
[2021-04-12] MEDS ORDERED: Activase 100 MG IV STA (19:37)
[2021-04-12 20:02] LABS: Appearance SLIGHTLY CLOUDY (CLEAR); Bilirubin NEGATIVE (NEGATIVE); Blood NEGATIVE Ery/ul (0-5); Glucose NEGATIVE (NEGATIVE); Hyaline Casts 0-2 /LPF (0-2); Ketones SMALL (NEGATIVE); Leukocyte Esterase NEGATIVE (NEGATIVE); Mucus SLIGHT /HPF (NEGATIVE); Nitrite NEGATIVE (NEGATIVE); Protein,Urine Dip NEGATIVE (Negative); Specific Gravity 1.015 (1.005-1.025); Urobilinogen NEGATIVE mg/dL (0-1)
[2021-04-12 20:13] LABS: Amphetamine,Urine NEGATIVE (NEGATIVE); Barbiturate,Urine NEGATIVE (NEGATIVE); Benzodiazepine,Urine NEGATIVE (NEGATIVE); Cocaine,Urine NEGATIVE (NEGATIVE); Methadone,Urine NEGATIVE (NEGATIVE); Opiate,Urine NEGATIVE (NEGATIVE); PCP,Urine NEGATIVE (NEGATIVE); THC,Urine NEGATIVE (NEGATIVE)
[2021-04-12] MEDS ORDERED: Zofran 4 MG/2 ML VIAL IV ONE ×2 (20:47→21:27)
--- NOTE | 2021-04-12 20:47 | XRAY ---
Indication: Stroke symptoms. Multiple contiguous axial images obtained through the head without contrast. Comparison: December 08, 2020. Again age-appropriate global atrophy, minimal periventricular degenerative micro-ischemia, and remote lacunar infarct left basal ganglia. No acute intracranial hemorrhage, abnormal extra-axial fluid collection, or mass effect. Fourth ventricle is midline without hydrocephalus. Bony calvarium intact. There remains near complete opacification of the left maxillary sinus. Impression: Continued nonacute senile brain with remote lacunar infarct left basal ganglia. Again incidental left maxillary sinus disease.
--- NOTE | 2021-04-12 20:54 | XRAY ---
Indication: Stroke symptoms. Conventional contrast enhanced CTA head performed using 80 cc Isovue 370 contrast. Two-dimensional sagittal and coronal reformatted images obtained. Comparison: None Distal internal carotid arteries are bilaterally symmetric with minimal calcifications involving the parasellar segments. No critical stenosis, position, or AV malformation. Normal carotid terminus with normal branching A1 and M1 segments bilaterally. More distal anterior cerebral and middle cerebral arteries are normal in CTA appearance. Posterior circulation demonstrate normal CTA appearance to the basilar artery, left/right posterior cerebral, and left/right superior cerebellar arteries. Venous sinuses/system unremarkable. No abnormal enhancing intra-or extra-axial mass. Impression: Minimal calcifications parasellar segments of both internal carotid arteries without critical stenosis/obstruction. Remaining CTA head with contrast exam is negative.
--- NOTE | 2021-04-12 20:54 | XRAY ---
Indication: Stroke symptoms. Comparison: December 08, 2020. Portable chest less inflated with new right mid to lower lung and left base subsegmental atelectasis/scarring. Remaining heart and lungs unremarkable. Bony thorax intact again with osteopenia, degenerative changes, and left shoulder arthroplasty.
[2021-04-12 23:07] VITALS: BP 169/68; PULSE 82; O2SAT 94
--- NOTE | 2021-04-15 09:59 | XRAY ---
Indication: Stroke symptoms. Conventional contrast enhanced CTA neck performed using 80 cc Isovue 370 contrast. Two-dimensional sagittal and coronal reformatted images obtained. Comparison: None Visualized aortic arch demonstrates minimal arteriosclerotic calcifications without aneurysm/dissection. Normal branching right brachiocephalic, left common carotid, and left subclavian arteries with mild calcifications at their origins. Examination of the right carotid circulation demonstrates widely patent common carotid artery. Minimal eccentric calcifications at the level of the carotid bulb without critical stenosis/obstruction. Remaining internal and external carotid arteries are normal in CTA appearance. Examination of the left carotid circulation demonstrates minimal calcifications of the common carotid artery, carotid bulb, and origin external carotid artery without critical stenosis/obstruction. Faint calcifications seen proximal internal carotid artery. Vertebral arteries are bilaterally symmetric without critical stenosis, obstruction, or AV malformation. Parotid and submandibular glands are bilaterally symmetric. Small subcentimeter cervical and submandibular lymph nodes bilaterally. No pathologic lymphadenopathy. Thyroid gland enhances with left lobe enlargement and heterogeneity. Osseous structures demonstrates osteopenia, moderate C5-C7 degenerative changes, and beam artifact from left shoulder arthroplasty. Visualized lungs demonstrates right upper lobe fibrosis/scarring and mild bilateral dependent atelectasis. Impression: 1. Left and right carotid arteries of the neck demonstrates minimal arteriosclerotic calcifications without critical stenosis/obstruction. 2. Incidental heterogeneously enhancing enlarged left thyroid gland and chronic bony findings.
== END 2021-04-12 23:15 | disposition short-term general hospital (02) ==
LOC: ED 17:57
DX: I63.9 Cerebral infarction, unspecified (principal)
CPT/HCPCS: 36000; 36415; 51702; 70450; 70491; 70496; 70498; 71045; 80053; 80307; 81001; 84484; 85025; 85730; 87086; 93005; 93041; 96374; 96376; 99285; 99291; J2405; J2997

== ENCOUNTER 2021-12-24 08:16 | Emergency (ER) | payer MEDICARE ==
--- NOTE | 2021-12-24 08:26 | ERPHSYRPT ---
- History of Present Illness Time Seen by Provider: 12/24/21 08:26 Historian: patient, family Exam Limitations: no limitations Physician History: This is an 81 y/o white female pt of Dr. Liriano and cupola charger Dr. Hoyt who presents to ED with multiple complaints including diarrhea, higher than normal sbp readings and vomiting. she denies cp, she denies abd pain. she denies headaches and visual changes. she is not sob. she has not had fevers. pt has a h/o htn, anxiety, elevated cholesterol and osteoarthritis. 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 Pt states she took her bp meds this morning but they "came back up" Timing/Duration: today Activities at Onset: none Severity of Pain-Max: none Severity of Pain-Current: none Modifying Factors: Improves With: nothing Associated Symptoms: diarrhea, vomiting Previous symptoms: no prior history Allergies/Adverse Reactions: amoxicillin Allergy (Verified 12/24/21 08:33) codeine Allergy (Verified 12/24/21 08:33) dicyclomine [From Bentyl] Allergy (Verified 12/24/21 08:33) eszopiclone [From Lunesta] Allergy (Verified 12/24/21 08:33) morphine Allergy (Verified 12/24/21 08:33) propoxyphene [From Darvon] Allergy (Verified 12/24/21 08:33) tetracycline Allergy (Verified 12/24/21 08:33) Home Medications: Amlodipine Besylate 5 mg [Norvasc 5 mg] 5 mg PO DAILY 06/20/19 [History] Aspirin EC 81 mg [Ecotrin 81 mg] 81 mg PO DAILY 06/20/19 [History] Atorvastatin Calcium 5 mg PO QHS 06/20/19 [History] Losartan Potassium 50 mg [Cozaar 50 MG] 50 mg PO DAILY 06/20/19 [History] Multivit-Min/Iron/Folic/Lutein [Centrum Silver Women Tablet] 1 each PO DAILY 06/21/19 [History] Non-Formulary Drug [Non-Formulary Item] 1 each PO DAILY 06/21/19 [History] Non-Formulary Drug [Non-Formulary Item] 1 each PO QHS 06/21/19 [History] Non-Formulary Drug [Non-Formulary Item] 1 each PO QHS 06/21/19 [History] Celecoxib [Celebrex] 1 cap PO DAILY 12/08/20 [History] Gabapentin 1 cap PO TID 12/08/20 [History] Hx Tetanus, Diphtheria Vaccination/Date Given: No Hx Influenza Vaccination/Date Given: Yes Hx Pneumococcal Vaccination/Date Given: No Travel Risk - International Travel Have you traveled outside of the country in past 3 weeks: No - Coronavirus Screening Are you exhibiting any of the following symptoms?: No Close contact with a COVID-19 positive Pt in past 14-21 Days: No - Vaccine Status Have you recieved a Covid-19 vaccination: Yes Final Inspector Movement Assembly: Moderna - Vaccination Dates Date of 2cond Vaccination (if applicable): 11/03/2020 - Review of Systems Constitutional: No Symptoms Eyes: No Symptoms Ears, Nose, & Throat: No Symptoms Respiratory: No Symptoms Cardiac: No Symptoms Abdominal/Gastrointestinal: Nausea, Vomiting, Diarrhea Genitourinary Symptoms: No Symptoms Musculoskeletal: No Symptoms Skin: No Symptoms Neurological: No Symptoms Psychological: No Symptoms Endocrine: No Symptoms Hematologic/Lymphatic: No Symptoms Immunological/Allergic: No Symptoms All Other Systems: Reviewed and Negative - Past Medical History Pertinent Past Medical History: Yes Neurological History: No Pertinent History Cardiac History: Hypertension Respiratory History: No Pertinent History Endocrine Medical History: Hypothyroidism, Other Musculoskeletal History: Osteoarthritis GI Medical History: Diverticulitis History: No Pertinent History Psycho-Social History: Anxiety Female Reproductive Disorders: No Pertinent History Other Medical History: BORDERLINE DMII, DOES NOT TAKE MEDICATION FOR THIS. SEE LIST FOR MEDICATIONS TAKEN. 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 - Social History Smoking Status: Never smoker Exposure to second hand smoke: No Drug Use: none Patient Lives Alone: No - Nursing Vital Signs Nursing Vital Signs: Initial Vital Signs Temperature 97.6 F 12/24/21 08:34 Pulse Rate 61 12/24/21 08:34 Respiratory Rate 18 12/24/21 08:34 Blood Pressure 173/63 12/24/21 08:34 O2 Sat by Pulse Oximetry 95 12/24/21 08:34 Pain Scale Pain Intensity 0 - Physical Exam General Appearance: no apparent distress, alert, anxiety Eye Exam: PERRL/EOMI, eyes nml inspection Ears, Nose, Throat Exam: normal ENT inspection, moist mucous membranes Neck Exam: normal inspection, non-tender, supple, full range of motion Respiratory Exam: normal breath sounds, lungs clear, airway intact, No chest tenderness, No respiratory distress Cardiovascular Exam: regular rate/rhythm, normal heart sounds, normal peripheral pulses Gastrointestinal/Abdomen Exam: soft, normal bowel sounds, No tenderness Pelvic Exam: not done Rectal Exam: not done Back Exam: normal inspection, normal range of motion, No CVA tenderness, No vertebral tenderness Extremity Exam: normal inspection, normal range of motion, pelvis stable Neurologic Exam: alert, oriented x 3, cooperative, 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 as tested, normal mood/affect, nml cerebellar function, nml station & gait, sensation nml Skin Exam: normal color, warm, dry Lymphatic Exam: No adenopathy SpO2 Interpretation: normal O2 Delivery: Room Air - Course Nursing assessment & vital signs reviewed: Yes EKG Interpreted by Me: RATE (60), Sinus Rhythm, LAFB, Right Bundle Branch Block, Non-specific ST Changes, Other (no acute ischemia) Ordered Tests: Active Orders 24 hr Category Date Time Status EKG-ER Only STAT Care 12/24/21 08:44 Active IV Insertion STAT Care 12/24/21 08:44 Active AMYLASE Stat Lab 12/24/21 08:40 Completed CMP Stat Lab 12/24/21 08:40 Completed LIPASE Stat Lab 12/24/21 08:40 Completed Lactic Acid Stat Lab 12/24/21 08:44 Completed TROPONIN Q3H Lab 12/24/21 08:40 Completed TROPONIN Q3H Lab 12/24/21 11:37 Received TROPONIN Q3H Lab 12/24/21 14:45 Ordered TROPONIN Q3H Lab 12/24/21 17:45 Ordered TROPONIN Q3H Lab 12/24/21 20:45 Ordered Medication Summary Generic Name Dose Route Start Last Admin Trade Name Freq PRN Reason Stop Dose Admin Sodium Chloride 1,000 mls @ 100 mls/hr 12/24/21 08:45 12/24/21 08:52 Sodium Chloride 0.9% 1000 Ml IV 01/23/22 08:44 100 mls/hr .Q10H COURTNEY Administration Discontinued Medications Generic Name Dose Route Start Last Admin Trade Name Freq PRN Reason Stop Dose Admin Enalaprilat 1.25 mg 12/24/21 09:49 12/24/21 09:56 Enalaprilat 2.5 Mg Injection IV 12/24/21 09:50 1.25 mg STAT ONE Administration Enalaprilat Confirm 12/24/21 09:55 Enalaprilat 2.5 Mg Injection Administered 12/24/21 09:56 Dose 2.5 mg IV .STK-MED ONE Enalaprilat 0.625 mg 12/24/21 11:23 12/24/21 11:33 Enalaprilat 2.5 Mg Injection IV 12/24/21 11:24 0.625 mg STAT ONE Administration Enalaprilat Confirm 12/24/21 11:30 Enalaprilat 2.5 Mg Injection Administered 12/24/21 11:31 Dose 2.5 mg IV .STK-MED ONE Ondansetron HCl 4 mg 12/24/21 08:44 12/24/21 09:04 Ondansetron Hcl 4 Mg/2 Ml Vial IV 12/24/21 08:45 4 mg STAT ONE Administration Ondansetron HCl Confirm 12/24/21 08:50 Ondansetron Hcl 4 Mg/2 Ml Vial Administered 12/24/21 08:51 Dose 4 mg .ROUTE .STK-MED ONE Lab/Rad Data: Laboratory Result Diagrams 12/24/21 08:40 Laboratory Results 12/24/21 12/24/21 12/24/21 Range/Units 08:57 08:44 08:40 Sodium (137-145) mmol/L Potassium (3.5-5.1) mmol/L Chloride (98-107) mmol/L Carbon Dioxide (22-30) mmol/L Anion Gap (5-15) MEQ/L BUN (7-17) mg/dL Creatinine (0.52-1.04) mg/dL Estimated GFR ML/MIN Glucose (74-106) mg/dL Lactic Acid 1.1 (0.4-2.0) Calcium (8.4-10.2) mg/dL Total Bilirubin (0.2-1.3) mg/dL AST (14-36) U/L ALT (0-35) U/L Alkaline Phosphatase (38-126) U/L Troponin I < 0.012 (0.000-0.034) ng/mL Serum Total Protein (6.3-8.2) g/dL Albumin (3.5-5.0) g/dL Amylase (30-110) U/L Lipase (23-300) U/L Urinalys Dipstick Clnc MAIN LAB Urine Color Cancelled Urine Appearance Cancelled Urine pH Cancelled Ur Specific [place] Cancelled Urine Protein Cancelled POC Urine Protein Conf 100 (Negative) Urine Ketones Cancelled Urine Blood Cancelled Urine Nitrite Cancelled Urine Bilirubin Cancelled Urine Urobilinogen Cancelled Ur Leukocyte Esterase Cancelled Urine Leukocytes NEGATIVE (NEGATIVE) Urine WBC (Auto) 0-2 (0-5) /HPF Urine RBC (Auto) 0-2 (0-2) /HPF U Epithel Cells (Auto) FEW (FEW) /HPF Urine Bacteria (Auto) FEW (NEGATIVE) /HPF Urine RBC NEGATIVE (0-5) Cale/ul U Non-Squamous Epi Cells Cancelled Urine Mucus (Auto) SLIGHT (NEGATIVE) /HPF Ur Culture Indicated? NO Urine Culture Reflexed Cancelled Urine Glucose NEGATIVE (NEGATIVE) mg/dL 12/24/21 Range/Units 08:40 Sodium 138 (137-145) mmol/L Potassium 4.1 (3.5-5.1) mmol/L Chloride 103 (98-107) mmol/L Carbon Dioxide 24 (22-30) mmol/L Anion Gap 14.7 (5-15) MEQ/L BUN 10 (7-17) mg/dL Creatinine 0.83 (0.52-1.04) mg/dL Estimated GFR > 60.0 ML/MIN Glucose 130 H (74-106) mg/dL Lactic Acid (0.4-2.0) Calcium 9.5 (8.4-10.2) mg/dL Total Bilirubin 1.00 (0.2-1.3) mg/dL AST 38 H (14-36) U/L ALT 19 (0-35) U/L Alkaline Phosphatase 84 (38-126) U/L Troponin I (0.000-0.034) ng/mL Serum Total Protein 6.6 (6.3-8.2) g/dL Albumin 4.2 (3.5-5.0) g/dL Amylase 44 (30-110) U/L Lipase 81 (23-300) U/L Urinalys Dipstick Clnc Urine Color Urine Appearance Urine pH Ur Specific [place] Urine Protein POC Urine Protein Conf (Negative) Urine Ketones Urine Blood Urine Nitrite Urine Bilirubin Urine Urobilinogen Ur Leukocyte Esterase Urine Leukocytes (NEGATIVE) Urine WBC (Auto) (0-5) /HPF Urine RBC (Auto) (0-2) /HPF U Epithel Cells (Auto) (FEW) /HPF Urine Bacteria (Auto) (NEGATIVE) /HPF Urine RBC (0-5) Cale/ul U Non-Squamous Epi Cells Urine Mucus (Auto) (NEGATIVE) /HPF Ur Culture Indicated? Urine Culture Reflexed Urine Glucose (NEGATIVE) mg/dL - Progress Progress: improved, re-examined Progress Note: 12/24/21 11:59 medical decision making: pt states she is feeling well and wants to go home. her normal sbp are high 140s to mid 160s. she is neurologically intact. we will discharge her to home. she will be taking her usual bp meds this evening. Counseled pt/family regarding: lab results, diagnosis, need for follow-up - Departure Departure Disposition: Home Clinical Impression: Hypertension Condition: Stable Critical Care Time: No Referrals: ISABEL LIRIANO, DO [Primary Care Provider] - Follow up/PCP as directed Additional Instructions: Take your medication as prescribed. call your prescribing physician and cupola charger today to make an outpatient appointment for further evaluation and management
[2021-12-24] MEDS ORDERED: Zofran 4 MG/2 ML VIAL IV ONE (08:44)
[2021-12-24] MEDS ORDERED: Sodium Chloride 0.9% 1000 ML 1,000 ML IV SCH (08:45)
[2021-12-24] MEDS ORDERED: Zofran 4 MG/2 ML VIAL ONE (08:50)
[2021-12-24] MEDS ORDERED: Sodium Chloride 0.9% 1000 ML 1,000 ML ONE (08:50)
[2021-12-24 09:21] LABS: ALBUMIN 4.2 g/dL (3.5-5.0); ALKALINE PHOSPHATASE 84 U/L (38-126); AMYLASE 44 U/L (30-110); ANION GAP 14.7 MEQ/L (5-15); BLOOD UREA NITROGEN 10 mg/dL (7-17); CHLORIDE 103 mmol/L (98-107); Calcium 9.5 mg/dL (8.4-10.2); Carbon Dioxide 24 mmol/L (22-30); Creatinine 1 0.83 mg/dL (0.52-1.04); EST GLOMERULAR FILTRATION RATE > 60.0 ML/MIN; Glucose 130 mg/dL (74-106); LIPASE 81 U/L (23-300); Potassium 4.1 mmol/L (3.5-5.1); SGOT/AST 38 U/L (14-36); SGPT/ALT 19 U/L (0-35); SODIUM 138 mmol/L (137-145); Total Protein 6.6 g/dL (6.3-8.2)
[2021-12-24 09:23] LABS: Appearance CLEAR (CLEAR); Bilirubin NEGATIVE (NEGATIVE); Glucose NEGATIVE (NEGATIVE); Ketones NEGATIVE (NEGATIVE); Nitrite NEGATIVE (NEGATIVE); Ph 7.5 (5-6); Protein,Urine Dip 100 (Negative); RBC NEGATIVE Ery/ul (0-5); Urobilinogen 0.2 mg/dL (0-1)
[2021-12-24 09:24] LABS: Dipstick done @ ? MAIN LAB
[2021-12-24 09:25] LABS: Bacteria FEW /HPF (NEGATIVE); Epithelial Cells FEW /HPF (FEW); Mucus SLIGHT /HPF (NEGATIVE); RBC 0-2 /HPF (0-2); Urine Cultured Indicated? NO; WBC 0-2 /HPF (0-5)
[2021-12-24] MEDS ORDERED: ENALAPRILAT 2.5 MG INJECTION IV ONE ×4 (09:49→11:30)
[2021-12-24 12:01] VITALS: BP 165/83; PULSE 78; O2SAT 98
== END 2021-12-24 12:12 | disposition home or self-care (01) ==
LOC: ED 08:16
DX: I10 Essential (primary) hypertension (principal); R19.7 Diarrhea, unspecified; R11.11 Vomiting without nausea; E78.5 Hyperlipidemia, unspecified; Z79.899 Other long term (current) drug therapy
CPT/HCPCS: 36000; 36415; 80053; 81015; 82150; 83605; 83690; 84484; 93005; 96374; 96375; 96376; 99284; J2405

== ENCOUNTER 2023-08-12 09:14 | Day surgery (SDC) | payer MEDICARE ==
[2023-08-12] MEDS ORDERED: XYLOCAINE-MPF 1% 5ML SDV IJ ONE (09:15)
[2023-08-12] MEDS ORDERED: Sodium Chloride 0.9(Preservative Free) 10 ML IJ ONE (09:15)
[2023-08-12] MEDS ORDERED: Depo-Medrol 40 MG/ML IM ONE (09:15)
[2023-08-12] MEDS ORDERED: DIPRIVAN 200 MG/20 ML IV ONE (11:57)
--- NOTE | 2023-08-12 13:10 | XRAY ---
Indication: Lumbar NOÉ. Intraoperative fluoroscopy provided for 12 seconds. 2 digital spot image submitted for interpretation demonstrates posterior new tip projecting posterior to lumbosacral junction. Small amount of contrast injected for needle tip placement. Correlate with intraoperative findings/report.
--- NOTE | 2023-08-12 13:18 | XRAY ---
12 seconds of fluoroscopy was used in surgery for a lumbar NOÉ.
[2023-08-12] MEDS ORDERED: Lactated Ringers 1,000 ML IV ONE (15:32)
== END 2023-08-12 12:33 | disposition home or self-care (01) ==
LOC: SDC-PAIN 09:14
PROVIDERS: ATTEND Psychiatry & Neurology Pain Medicine
DX: M54.16 Radiculopathy, lumbar region (principal)
CPT/HCPCS: 62323; 72100; 77003; J1030; J2704; Q9966

== ENCOUNTER 2023-10-21 12:33 | Day surgery (SDC) | payer MEDICARE | END 2023-10-21 14:25 | disposition home or self-care (01) | LOC: SDC-PAIN 12:33 | PROVIDERS: ATTEND Psychiatry & Neurology Pain Medicine | DX: Z53.8 Procedure and treatment not carried out for other reasons (principal) ==

== ENCOUNTER 2023-11-04 10:38 | Day surgery (SDC) | payer MEDICARE ==
[2023-11-04] MEDS ORDERED: Sodium Chloride 0.9(Preservative Free) 10 ML IJ ONE (10:39)
[2023-11-04] MEDS ORDERED: Decadron 4 MG INJ IV ONE (10:39)
[2023-11-04] MEDS ORDERED: DIPRIVAN 200 MG/20 ML IV ONE (13:40)
[2023-11-04] MEDS ORDERED: Lactated Ringers 1,000 ML IV ONE (14:02)
--- NOTE | 2023-11-04 15:09 | XRAY ---
Indication: Right L4-S1 transforaminal NOÉ. Intraoperative fluoroscopy provided for 33 seconds. 5 digital spot image submitted for interpretation demonstrates posterior needle tips projecting over expected right L4 and L5 nerve roots. Small amount of contrast injected for needle tip placement. Correlate with intraoperative findings/report.
--- NOTE | 2023-11-04 15:20 | XRAY ---
33 seconds of fluoroscopy was used in surgery for a right L4-S1 transforaminal NOÉ.
== END 2023-11-04 14:19 | disposition home or self-care (01) ==
LOC: SDC-PAIN 10:38
PROVIDERS: ATTEND Psychiatry & Neurology Pain Medicine
DX: M54.16 Radiculopathy, lumbar region (principal)
CPT/HCPCS: 64483; 64484; 72100; 77003; J1100; J2704; Q9966

== ENCOUNTER 2023-11-20 08:18 | Emergency (ER) | payer MEDICARE ==
[2023-11-20 08:33] VITALS: TEMP 97.3
--- NOTE | 2023-11-20 08:46 | ERPHSYRPT ---
- History of Present Illness Time Seen by Provider: 11/20/23 08:30 Source: patient Exam Limitations: no limitations Patient Subjective Stated Complaint: SOB Triage Nursing Assessment: Patient brought back to ED per w/c and transferred self to bed. Patient A+O X3. Patient's skin pink, warm and dry. Patient complains of increased SOB and dry mouth since this am. Patient denies pain or discomfort. Lungs clear a/p cynthia. Patient denies N/V, diarrhea, and cough. Physician History: This is an 83-year-old white female patient of Dr. Campuzano who presents to the emergency department with shortness of breath and intermittent dry mouth. The dry mouth symptoms are worse today per her report. Patient denies chest pain. Patient denies nausea vomiting and diarrhea symptoms. Patient denies cough. This patient is a diabetic and is on Eliquis. She does have a history of hypothyroidism, hyperlipidemia and hypertension. Timing/Duration: today Severity of Dyspnea-Max: mild Severity of Dyspnea-Current: mild Possible Cause: occasional episodes Modifying Factors: Improves With: nothing Associated Symptoms: No cough, No chest pain/discomfort, No wheezing, No dizziness Allergies/Adverse Reactions: amoxicillin Allergy (Verified 11/20/23 08:21) codeine Allergy (Verified 11/20/23 08:21) dicyclomine [From Bentyl] Allergy (Verified 11/20/23 08:21) eszopiclone [From Lunesta] Allergy (Verified 11/20/23 08:21) morphine Allergy (Verified 11/20/23 08:21) propoxyphene [From Darvon] Allergy (Verified 11/20/23 08:21) tetracycline Allergy (Verified 11/20/23 08:21) Home Medications: Amlodipine Besylate 5 mg [Norvasc 5 mg] 2.5 mg PO DAILY 06/20/19 [History] Atorvastatin Calcium 20 mg PO QHS 06/20/19 [History] Losartan Potassium 50 mg [Cozaar 50 MG] 50 mg PO BID 06/20/19 [History] Multivit-Min/Iron/Folic/Lutein [Centrum Silver Women Tablet] 1 each PO DAILY 06/21/19 [History] Non-Formulary Drug [Non-Formulary Item] 2,500 mcg PO DAILY 06/21/19 [History] Non-Formulary Drug [Non-Formulary Item] 100 mg PO QHS 06/21/19 [History] Amiodarone HCl 200 mg PO DAILY 11/20/23 [History] Apixaban [Eliquis] 2.5 mg PO BID 11/20/23 [History] Cetirizine HCl [Zyrtec] 10 mg PO DAILY 11/20/23 [History] Metoprolol Succinate 25 mg Xl* [Toprol-Xl 25MG Tablets] 25 mg PO DAILY 11/20/23 [History] Tramadol HCl 50 mg [Ultram 50 mg] 50 mg PO BID 11/20/23 [History] Vit A/Vit C/Vit E/Zinc/Copper [Preservision Areds Tablet] 1 each PO BID 11/20/23 [History] Hx Tetanus, Diphtheria Vaccination/Date Given: No Hx Influenza Vaccination/Date Given: Yes Hx Pneumococcal Vaccination/Date Given: No Immunizations Up to Date: Yes Travel Risk - International Travel Have you traveled outside of the country in past 3 weeks: No - Emerging Infectious Disease Are you exhibiting symptoms associated with any current EIDs: Yes Symptoms: Shortness of Breath, Other (Please Comment) (Dry mouth) - Review of Systems Constitutional: No Symptoms Eyes: No Symptoms Ears, Nose, & Throat: Other (Dry mouth) Respiratory: Dyspnea Cardiac: No Symptoms Abdominal/Gastrointestinal: No Symptoms Genitourinary Symptoms: No Symptoms Musculoskeletal: No Symptoms Skin: No Symptoms Neurological: No Symptoms Psychological: No Symptoms Endocrine: No Symptoms Hematologic/Lymphatic: No Symptoms Immunological/Allergic: No Symptoms All Other Systems: Reviewed and Negative - Past Medical History Pertinent Past Medical History: Yes Neurological History: No Pertinent History Cardiac History: Hypertension Respiratory History: No Pertinent History Endocrine Medical History: Hypothyroidism, Other Musculoskeletal History: Osteoarthritis GI Medical History: Diverticulitis History: No Pertinent History Psycho-Social History: Anxiety Female Reproductive Disorders: No Pertinent History Other Medical History: BORDERLINE DMII, DOES NOT TAKE MEDICATION FOR THIS. SEE LIST FOR MEDICATIONS TAKEN. - Past Surgical History Past Surgical History: Yes Cardiac: Pacemaker Gastrointestinal: Cholecystectomy Musculoskeletal: Orthopedic Surgery Other Surgical History: thyroidectomy, rt rcr, surgery l5-s1, vein replacement to L shoulder d/t blockage - Social History Smoking Status: Never smoker Exposure to second hand smoke: No Drug Use: none Patient Lives Alone: No - Nursing Vital Signs Nursing Vital Signs: Initial Vital Signs Temperature 97.3 F 11/20/23 08:23 Pulse Rate 67 11/20/23 08:23 Respiratory Rate 18 11/20/23 08:23 Blood Pressure 180/61 11/20/23 08:23 O2 Sat by Pulse Oximetry 98 11/20/23 08:23 Pain Scale Pain Intensity 0 - Physical Exam General Appearance: no apparent distress, alert, anxiety, obese Eye Exam: PERRL/EOMI, eyes nml inspection Ears, Nose, Throat Exam: hearing grossly normal, normal ENT inspection, normal pharynx Neck Exam: normal inspection, non-tender, supple, full range of motion Respiratory Exam: normal breath sounds, lungs clear, airway intact, No chest tenderness, No respiratory distress Cardiovascular/Chest Exam: normal heart sounds, regular rate/rhythm Abdominal/Gastrointestinal Exam: soft, normal bowel sounds, No tenderness Rectal Exam: not done Extremity Exam: non-tender, normal range of motion, normal inspection Neurologic Exam: alert, oriented x 3, cooperative, metallurgical specialist II-XII nml as tested, normal mood/affect, nml cerebellar function, nml station & gait, sensation nml Skin Exam: normal color, warm, dry Lymphatic Exam: No adenopathy SpO2 Interpretation: normal SpO2: 100 O2 Delivery: Room Air - Course Nursing assessment & vital signs reviewed: Yes EKG Interpreted by Me: RATE (64), A-fib, LAFB, Right Bundle Branch Block, Other (No acute ischemic changes on today's twelve-lead EKG. There are no changes when compared to twelve-lead EKG dated 12/24/2021) Ordered Tests: Active Orders 24 hr Category Date Time Status Intelligence Research Specialist STAT Care 11/20/23 08:47 Active EKG-ER Only STAT Care 11/20/23 08:46 Active IV Insertion STAT Care 11/20/23 08:46 Active Pulse Oximetry (ED) STAT Care 11/20/23 08:46 Active CHEST 1 VIEW (PORTABLE) Stat Exams 11/20/23 08:47 Completed BLOOD CULTURE Stat Lab 11/20/23 09:20 Received CBC W DIFF Stat Lab 11/20/23 08:30 Completed CMP Stat Lab 11/20/23 08:30 Completed D-DIMER QUANTITATIVE Stat Lab 11/20/23 08:30 Completed MAGNESIUM Stat Lab 11/20/23 08:30 Completed NT PRO BNPII Stat Lab 11/20/23 08:30 Completed PROTIME WITH INR Stat Lab 11/20/23 08:30 Completed TROPONIN Q4H Lab 11/20/23 08:30 Completed TROPONIN Q4H Lab 11/20/23 11:38 Completed TROPONIN Q4H Lab 11/20/23 17:00 Ordered Medication Summary Discontinued Medications Generic Name Dose Route Start Last Admin Trade Name Giovaniq PRN Reason Stop Dose Admin Furosemide 20 mg 11/20/23 10:52 11/20/23 10:55 Furosemide 20 Mg/Vial IV 11/20/23 10:53 20 mg STAT ONE Administration Furosemide Confirm 11/20/23 10:55 Furosemide 20 Mg/Vial Administered 11/20/23 10:56 Dose 20 mg .ROUTE .[facility] ONE Lab/Rad Data: Laboratory Result Diagrams 11/20/23 08:30 11/20/23 08:30 Laboratory Results 11/20/23 11/20/23 11/20/23 Range/Units 11:38 09:24 08:30 WBC (4.0-10.5) x10^3/uL RBC (4.1-5.4) x10^6/uL Hgb (12.0-16.0) g/dL Hct (35-47) % MCV (78-100) fL MCH (26-32) pg MCHC (32-36) g/dL RDW (11.5-14.0) % Plt Count (150-450) x10^3/uL MPV (7.5-11.0) fL Gran % (36.0-66.0) % Immature Gran % (Auto) (0.00-0.4) % Nucleat RBC Rel Count (0.00-0.1) % Eos # (Auto) (0-0.5) x10^3/uL Immature Gran # (Auto) (0.00-0.03) x10^3u/L Absolute Lymphs (auto) (1.0-4.6) x10^3/uL Absolute Monos (auto) (0.0-1.3) x10^3/uL Absolute Nucleated RBC (0.00-0.01) x10^3u/L Lymphocytes % (24.0-44.0) % Monocytes % (0.0-12.0) % Eosinophils % (0.00-5.0) % Basophils % (0.0-0.4) % Absolute Granulocytes (1.4-6.9) x10^3/uL Basophils # (0-0.4) x10^3/uL PT (9.4-12.5) SECONDS INR (0.8-3.0) D-Dimer (0.0-0.50) mg/L Sodium (135-145) mmol/L Potassium (3.5-5.1) mmol/L Chloride (98-107) mmol/L Carbon Dioxide (22-30) mmol/L Anion Gap (5-15) MEQ/L BUN (7-17) mg/dL Creatinine (0.52-1.04) mg/dL Estimated GFR ML/MIN Glucose (74-106) mg/dL Calcium (8.4-10.2) mg/dL Magnesium (1.6-2.3) mg/dL Total Bilirubin (0.2-1.3) mg/dL AST (14-36) U/L ALT (0-35) U/L Alkaline Phosphatase (38-126) U/L Troponin I < 0.012 < 0.012 (0.000-0.034) ng/mL NT-Pro-B Natriuret Pep (<300) pg/mL Serum Total Protein (6.3-8.2) g/dL Albumin (3.5-5.0) g/dL Influenza Type A Ag NEGATIVE (NEGATIVE) Influenza Type B Ag NEGATIVE (NEGATIVE) RSV (PCR) NEGATIVE (NEGATIVE) SARS-CoV-2 (PCR) NEGATIVE (NEGATIVE) Slides for Path Review 11/20/23 11/20/23 11/20/23 Range/Units 08:30 08:30 08:30 WBC 11.9 H (4.0-10.5) x10^3/uL RBC 3.88 L (4.1-5.4) x10^6/uL Hgb 12.5 (12.0-16.0) g/dL Hct 38.4 (35-47) % MCV 99.0 (78-100) fL MCH 32.2 H (26-32) pg MCHC 32.6 (32-36) g/dL RDW 13.0 (11.5-14.0) % Plt Count 198 (150-450) x10^3/uL MPV 9.9 (7.5-11.0) fL Gran % 45.6 (36.0-66.0) % Immature Gran % (Auto) 0.3 (0.00-0.4) % Nucleat RBC Rel Count 0.0 (0.00-0.1) % Eos # (Auto) 0.25 (0-0.5) x10^3/uL Immature Gran # (Auto) 0.03 (0.00-0.03) x10^3u/L Absolute Lymphs (auto) 5.08 H (1.0-4.6) x10^3/uL Absolute Monos (auto) 1.01 (0.0-1.3) x10^3/uL Absolute Nucleated RBC 0.00 (0.00-0.01) x10^3u/L Lymphocytes % 42.7 (24.0-44.0) % Monocytes % 8.5 (0.0-12.0) % Eosinophils % 2.1 (0.00-5.0) % Basophils % 0.8 (0.0-0.4) % Absolute Granulocytes 5.45 (1.4-6.9) x10^3/uL Basophils # 0.09 (0-0.4) x10^3/uL PT 11.4 (9.4-12.5) SECONDS INR 1.05 (0.8-3.0) D-Dimer 0.47 (0.0-0.50) mg/L Sodium 137 (135-145) mmol/L Potassium 4.7 (3.5-5.1) mmol/L Chloride 102 (98-107) mmol/L Carbon Dioxide 26 (22-30) mmol/L Anion Gap 13.7 (5-15) MEQ/L BUN 17 (7-17) mg/dL Creatinine 0.98 (0.52-1.04) mg/dL Estimated GFR 56.6 ML/MIN Glucose 101 (74-106) mg/dL Calcium 9.0 (8.4-10.2) mg/dL Magnesium 2.1 (1.6-2.3) mg/dL Total Bilirubin 0.60 (0.2-1.3) mg/dL AST 34 (14-36) U/L ALT 18 (0-35) U/L Alkaline Phosphatase 84 (38-126) U/L Troponin I (0.000-0.034) ng/mL NT-Pro-B Natriuret Pep 1470 (<300) pg/mL Serum Total Protein 6.8 (6.3-8.2) g/dL Albumin 4.1 (3.5-5.0) g/dL Influenza Type A Ag (NEGATIVE) Influenza Type B Ag (NEGATIVE) RSV (PCR) (NEGATIVE) SARS-CoV-2 (PCR) (NEGATIVE) Slides for Path Review YES - Progress Progress: improved, re-examined Air Movement: good Progress Note: 11/20/23 10:50 This patient's medical issue is 1 of moderate complexity. The level of complexity in the workup performed is based on review of the patient's past medical history, review the patient's medication list, review the patient drug allergy list, history of present illness and physical findings on examination. The workup in this patient includes placement of intravenous line, CBC, CMP, chest x-ray, twelve-lead EKG, D-dimer, troponin level, BNP level, and viral swabs. 11/20/23 11:58 I interpreted the patient's laboratory data results. Based on the patient's laboratory data results, the patient does not have any acute or emergent medical issue. I interpreted the patient's repeat, 3-hour twelve-lead EKG. It was performed on 11/20/2023 at 11:43 AM. The patient's heart rate is 63 bpm. The patient is normal sinus rhythm. 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 It is not changed from the twelve-lead EKG that was done 3 hours ago. There are no acute ischemic changes. 11/20/23 12:03 Chest x-ray was interpreted by the radiologist and I reviewed the impression. Impression states continued nonacute chest with chronic features. 11/20/23 12:30 This patient's second troponin is also within the normal range. Patient does not have chest pain. I do not have an emergent CT explanation for this patient's symptoms. She will contact her primary care provider today, 11/18/2023 to make arrangements for follow-up appointment next 3 to 5 days. Blood Culture(s) Obtained: Yes Counseled pt/family regarding: lab results, diagnosis, need for follow-up, rad results Medical Desision Making - Diagnostic Testing Diagnostic test were ordered, analyzed, and reviewed by me: Yes Radiological Interpretation: Reviewed by me, Teleradiologist Report - Risk of complications Low Risk: Low risk of morbidity from additional dx testing or treatment - Departure Departure Disposition: Home Clinical Impression: Shortness of breath, Leukocytosis, unspecified, Dry mouth Condition: Stable Critical Care Time: No Referrals: LORETTA CAMPUZANO DO [Primary Care Provider] - Follow up/PCP as directed Additional Instructions: Call your primary care provider today, 11/18/2023, to make arrangements for follow-up appointment next 3 to 5 days. Continue all your medications as prescribed.
[2023-11-20 09:30] LABS: Absolute Neutrophil Ct (ANC) 5.45 x10^3/uL (1.4-6.9); BASOPHIL % 0.8 % (0.0-0.4); Basophil (Absolute #) 0.09 x10^3/uL (0-0.4); Eosinophil % 2.1 % (0.00-5.0); Eosinophil (Absolute #) 0.25 x10^3/uL (0-0.5); Hematocrit 38.4 % (35-47); Hemoglobin 12.5 g/dL (12.0-16.0); IMMATURE GRAN # 0.03 x10^3u/L (0.00-0.03); IMMATURE GRAN % 0.3 % (0.00-0.4); Lymphocyte (Absolute #) 5.08 x10^3/uL (1.0-4.6); Lymphocytes % 42.7 % (24.0-44.0); Mean Corpuscular Hemoglobin 32.2 pg (26-32); Mean Corpuscular Hgb Concent. 32.6 g/dL (32-36); Mean Platelet Volume 9.9 fL (7.5-11.0); Monocyte (Absolute #) 1.01 x10^3/uL (0.0-1.3); Monocytes % 8.5 % (0.0-12.0); Neutrophil % 45.6 % (36.0-66.0); Platelet Count 198 x10^3/uL (150-450); Red Blood Count 3.88 x10^6/uL (4.1-5.4); White Blood Count 11.9 x10^3/uL (4.0-10.5)
[2023-11-20 09:44] LABS: D-DIMER QUANTITATIVE 0.47 mg/L (0.0-0.50); INR 1.05 (0.8-3.0); PROTIME 11.4 SECONDS (9.4-12.5)
--- NOTE | 2023-11-20 09:47 | XRAY ---
Indication: Short of breath. Comparison: April 12, 2021 Portable chest better inflated with stable minimal right midlung subsegmental atelectasis/scarring and mild right hemidiaphragm elevation. No focal infiltrate, consolidation, or large effusion. Heart not enlarged with new right dual lead pacemaker. Bony thorax intact again with osteopenia, degenerative changes, partial resection distal right clavicle, and left shoulder arthroplasty. Impression: Continued nonacute chest with chronic features.
[2023-11-20 09:51] LABS: ALBUMIN 4.1 g/dL (3.5-5.0); ANION GAP 13.7 MEQ/L (5-15); BILIRUBIN,TOTAL 0.6 mg/dL (0.2-1.3); Creatinine 1 0.98 mg/dL (0.52-1.04); EST GLOMERULAR FILTRATION RATE 56.6 ML/MIN; MAGNESIUM 2.1 mg/dL (1.6-2.3); Potassium 4.7 mmol/L (3.5-5.1); Total Protein 6.8 g/dL (6.3-8.2)
[2023-11-20 10:07] LABS: INFLUENZA A NEGATIVE (NEGATIVE); INFLUENZA B NEGATIVE (NEGATIVE); RESPIRATORY SYNCTIAL VIRUS NEGATIVE (NEGATIVE); SARS-CoV-2 Xpert Express NEGATIVE (NEGATIVE)
[2023-11-20 10:54] LABS: Slide Review 1 YES
[2023-11-20] MEDS ORDERED: Lasix 20 MG/2 ML ONE (10:55)
[2023-11-20] MEDS: Lasix 20 MG/2 ML IV ONE (10:55)
[2023-11-20 12:01] VITALS: O2SAT 100
[2023-11-20 12:46] VITALS: BP 121/59; PULSE 64; RESP 18
== END 2023-11-20 12:46 | disposition home or self-care (01) ==
LOC: ED 08:18
DX: R06.02 Shortness of breath (principal); D72.829 Elevated white blood cell count, unspecified; R68.2 Dry mouth, unspecified; E78.5 Hyperlipidemia, unspecified; I10 Essential (primary) hypertension; E11.9 Type 2 diabetes mellitus without complications; Z79.01 Long term (current) use of anticoagulants; Z79.891 Long term (current) use of opiate analgesic; Z79.899 Other long term (current) drug therapy; Z20.828 Contact with and (suspected) exposure to other viral communicable diseases
CPT/HCPCS: 0241U; 36000; 36415; 71045; 80053; 83735; 83880; 84484; 85025; 85379; 85610; 87040; 93005; 93041; 94760; 96374; 99284; J1940

== ENCOUNTER 2023-12-07 19:37 | Emergency (ER) | payer MEDICARE ==
[2023-12-07 20:06] VITALS: TEMP 98.4
--- NOTE | 2023-12-07 20:38 | ERPHSYRPT ---
- History of Present Illness Time Seen by Provider: 12/07/23 20:05 Source: patient Exam Limitations: no limitations Patient Subjective Stated Complaint: pt states that at approx 1500 a family member called her to inquire if pt was going to watch eclipse and ever since then the pt has been very anxious and "having a panic attack". Triage Nursing Assessment: pt brought to room 4 via wheelchair with daughter. pt then transfered self into bed independently with slow steady gait. pt is alert and oriented times three, able to speak in complete sentences, able to move all extremities, and with resp even and unlabored. pt only complaint at this time in addition to being anxious is bilat occipital headache rated 10/10 and has been a constant ache for last hour. denies vision changes, lightheadedness, dizziness, n/v, diarrhea, cough, fever, chills, or other ill feelings. Physician History: 83yo f presents via private vehicle for shortness of breath and anxiety. Pt states her sob started around 3pm when her daughter called and asked if she was watching the eclipse. Pt reports severe anxiety ever since. Pt has significant hx of anxiety, recently had anxiety medication changed by her PCP. Pt also reports 10/10 THAPA that began around the same time, states she does not usually have THAPA w/ her anxiety attacks. Pt currently denies cp, numbness/tingling, vision changes, n/v, confusion, neck pain. Timing/Duration: today Activities at Onset: rest Severity of Dyspnea-Max: moderate Severity of Dyspnea-Current: none Possible Cause: occasional episodes Modifying Factors: Improves With: nothing Associated Symptoms: anxiety, No cough, No chest pain/discomfort, No fever, No lightheadedness, No wheezing, No weakness Allergies/Adverse Reactions: amoxicillin Allergy (Verified 11/20/23 08:21) codeine Allergy (Verified 11/20/23 08:21) dicyclomine [From Bentyl] Allergy (Verified 11/20/23 08:21) eszopiclone [From Lunesta] Allergy (Verified 11/20/23 08:21) morphine Allergy (Verified 11/20/23 08:21) pregabalin [From Lyrica] Allergy (Verified 12/07/23 19:43) propoxyphene [From Darvon] Allergy (Verified 11/20/23 08:21) sulfamethoxazole [From Bactrim] Allergy (Verified 12/07/23 19:43) tetracycline Allergy (Verified 11/20/23 08:21) trimethoprim [From Bactrim] Allergy (Verified 12/07/23 19:43) Home Medications: Amlodipine Besylate 5 mg [Norvasc 5 mg] 2.5 mg PO DAILY 06/20/19 [History] Atorvastatin Calcium 10 mg PO QHS 06/20/19 [History] Losartan Potassium 50 mg [Cozaar 50 MG] 50 mg PO BID 06/20/19 [History] Multivit-Min/Iron/Folic/Lutein [Centrum Silver Women Tablet] 1 each PO DAILY 06/21/19 [History] Non-Formulary Drug [Non-Formulary Item] 2,500 mcg PO DAILY 06/21/19 [History] Non-Formulary Drug [Non-Formulary Item] 100 mg PO QHS 06/21/19 [History] Apixaban [Eliquis] 2.5 mg PO BID 11/20/23 [History] Cetirizine HCl [Zyrtec] 10 mg PO DAILY 11/20/23 [History] Metoprolol Succinate 25 mg Xl* [Toprol-Xl 25MG Tablets] 25 mg PO DAILY 11/20/23 [History] Tramadol HCl 50 mg [Ultram 50 mg] 50 mg PO BID 11/20/23 [History] Vit A/Vit C/Vit E/Zinc/Copper [Preservision Areds Tablet] 1 each PO BID 11/20/23 [History] Buspirone HCl 5 mg [Buspar 5 mg] 5 mg PO BID 12/07/23 [History] Gabapentin [Neurontin ] 100 mg PO BID 12/07/23 [History] Hx Tetanus, Diphtheria Vaccination/Date Given: Yes Hx Influenza Vaccination/Date Given: Yes Hx Pneumococcal Vaccination/Date Given: Yes Immunizations Up to Date: Yes Travel Risk - International Travel Have you traveled outside of the country in past 3 weeks: No - Emerging Infectious Disease Are you exhibiting symptoms associated with any current EIDs: No Symptoms: Shortness of Breath, Other (Please Comment) (Dry mouth) - Review of Systems Constitutional: No Symptoms Eyes: No Symptoms Ears, Nose, & Throat: No Symptoms Respiratory: Dyspnea, No Cough, No Wheezing Cardiac: No Symptoms Abdominal/Gastrointestinal: No Symptoms Neurological: Headache, No Dizziness, No Focal Weakness, No Lethargy, No Sensory Changes, No Speech Changes - Past Medical History Pertinent Past Medical History: Yes Neurological History: No Pertinent History ENT History: No Pertinent History Cardiac History: Hypertension Respiratory History: No Pertinent History Endocrine Medical History: Hypothyroidism, Other Musculoskeletal History: Osteoarthritis GI Medical History: Diverticulitis, Diverticulosis History: No Pertinent History Psycho-Social History: Anxiety Female Reproductive Disorders: No Pertinent History Other Medical History: BORDERLINE DMII, DOES NOT TAKE MEDICATION FOR THIS. SEE LIST FOR MEDICATIONS TAKEN. - Past Surgical History Past Surgical History: Yes Neuro Surgical History: No Pertinent History Cardiac: Pacemaker Respiratory: No Pertinent History Gastrointestinal: Cholecystectomy Genitourinary: No Pertinent History Musculoskeletal: Orthopedic Surgery Female Surgical History: No Pertinent History Other Surgical History: thyroidectomy, rt rcr, surgery l5-s1, vein replacement to L shoulder d/t blockage - Social History Smoking Status: Never smoker Exposure to second hand smoke: No Drug Use: none Patient Lives Alone: No - Nursing Vital Signs Nursing Vital Signs: Initial Vital Signs Pulse Rate 67 12/07/23 19:41 Respiratory Rate 20 12/07/23 19:41 Blood Pressure 149/53 12/07/23 19:41 O2 Sat by Pulse Oximetry 99 12/07/23 19:41 Pain Scale Pain Intensity 4 - Physical Exam General Appearance: no apparent distress, alert Ears, Nose, Throat Exam: hearing grossly normal, normal ENT inspection Neck Exam: normal inspection, non-tender, supple, full range of motion, No Brudzinski Respiratory Exam: normal breath sounds, lungs clear, airway intact, No chest tenderness, No respiratory distress, No diminished breath sounds, No accessory muscle use, No crackles/rales, No wheezing, No stridor Cardiovascular/Chest Exam: normal heart sounds, regular rate/rhythm, normal peripheral pulses, No murmur, No edema Abdominal/Gastrointestinal Exam: soft, normal bowel sounds Neurologic Exam: alert, oriented x 3, cooperative, photo checker and assembler II-XII nml as tested, normal mood/affect, nml cerebellar function, sensation nml, No motor deficits, No sensory deficit, No disoriented, No confusion, No motor weakness, No facial droop, No slurred speech SpO2 Interpretation: normal SpO2: 98 O2 Delivery: Room Air - Course EKG Interpreted by Me: RATE (113), Other (significant motion artifact, no discernable significant ST changes ) Ordered Tests: Active Orders 24 hr Category Date Time Status EKG-ER Only STAT Care 12/07/23 20:23 Active CHEST 1 VIEW (PORTABLE) Stat Exams 12/07/23 20:24 Taken HEAD WITHOUT CONTRAST [CT] Stat Exams 12/07/23 20:30 Completed CBC W DIFF Stat Lab 12/07/23 20:23 Completed CMP Stat Lab 12/07/23 20:40 Completed NT PRO BNPII Stat Lab 12/07/23 20:40 Completed TROPONIN Q4H Lab 12/07/23 20:40 Completed TROPONIN Q4H Lab 12/08/23 00:30 Ordered TROPONIN Q4H Lab 12/08/23 04:30 Ordered Medication Summary Discontinued Medications Generic Name Dose Route Start Last Admin Trade Name Freq PRN Reason Stop Dose Admin Lorazepam 0.5 mg 12/07/23 20:31 12/07/23 21:18 Lorazepam 0.5 Mg Tablet PO 12/07/23 20:32 Not Given STAT ONE Lorazepam Confirm 12/07/23 21:13 Lorazepam 1 Mg Tablet Administered 12/07/23 21:14 Dose 1 mg .ROUTE .STK-MED ONE Lorazepam 0.5 mg 12/07/23 21:14 12/07/23 21:17 Lorazepam 1 Mg Tablet PO 12/07/23 21:15 0.5 mg STAT ONE Administration Lorazepam 0.5 mg 12/08/23 00:32 Lorazepam 0.5 Mg Tablet PO 12/08/23 00:33 STAT ONE Lab/Rad Data: Laboratory Result Diagrams 12/07/23 20:23 12/07/23 20:40 Laboratory Results 12/07/23 12/07/23 12/07/23 Range/Units 20:40 20:40 20:23 WBC 10.4 (4.0-10.5) x10^3/uL RBC 3.91 L (4.1-5.4) x10^6/uL Hgb 12.2 (12.0-16.0) g/dL Hct 37.4 (35-47) % MCV 95.7 (78-100) fL MCH 31.2 (26-32) pg MCHC 32.6 (32-36) g/dL RDW 13.0 (11.5-14.0) % Plt Count 217 (150-450) x10^3/uL MPV 9.4 (7.5-11.0) fL Gran % 53.3 (36.0-66.0) % Immature Gran % (Auto) 0.3 (0.00-0.4) % Nucleat RBC Rel Count 0.0 (0.00-0.1) % Eos # (Auto) 0.13 (0-0.5) x10^3/uL Immature Gran # (Auto) 0.03 (0.00-0.03) x10^3u/L Absolute Lymphs (auto) 3.62 (1.0-4.6) x10^3/uL Absolute Monos (auto) 1.01 (0.0-1.3) x10^3/uL Absolute Nucleated RBC 0.00 (0.00-0.01) x10^3u/L Lymphocytes % 34.7 (24.0-44.0) % Monocytes % 9.7 (0.0-12.0) % Eosinophils % 1.2 (0.00-5.0) % Basophils % 0.8 (0.0-0.4) % Absolute Granulocytes 5.57 (1.4-6.9) x10^3/uL Basophils # 0.08 (0-0.4) x10^3/uL Sodium 134 L (135-145) mmol/L Potassium 3.8 (3.5-5.1) mmol/L Chloride 103 (98-107) mmol/L Carbon Dioxide 21 L (22-30) mmol/L Anion Gap 13.6 (5-15) MEQ/L BUN 14 (7-17) mg/dL Creatinine 1.13 H (0.52-1.04) mg/dL Estimated GFR 47.7 ML/MIN Glucose 111 H (74-106) mg/dL Calcium 9.4 (8.4-10.2) mg/dL Total Bilirubin 0.50 (0.2-1.3) mg/dL AST 36 (14-36) U/L ALT 18 (0-35) U/L Alkaline Phosphatase 94 (38-126) U/L Troponin I < 0.012 (0.000-0.033) ng/mL NT-Pro-B Natriuret Pep 1590 (<300) pg/mL Serum Total Protein 7.1 (6.3-8.2) g/dL Albumin 4.2 (3.5-5.0) g/dL - Progress Progress: improved Air Movement: good Progress Note: 12/07/23 21:40 pt given 0.5mg ativan PO w/ significant improvement of sob and THAPA pt not resting comfortably 12/07/23 23:27 CT head: 1. No significant radiological interval change. 2. Age appropriate global involutional changes with mild periventricular deep white matter ischemia. 3. No evidence of intracranial hemorrhage, gross established territorial infarction or mass effect. 4. Chronic lacunar infarcts in the left insular cortex and bilateral basal ganglia. 5. Diffuse intracranial atherosclerosis. 6. Chronic left maxillary sinusitis. 12/08/23 00:02 Pt feeling significantly better after dose of ativan - no longer complaining of sob, THAPA has totally resolved, pt reports she feels much better and is ready to go home Cardiac w/u not suggestive of ischemia CT head negative for acute hemorrhage pt's daughter will be staying w/ her at home o/n likely anxiety/panic attack plan to dc home with 1 tablet 0.5mg ativan that can be taken no sooner than 4h after discharge Instructed to f/u w/ PCP office (Dr Campuzano) first thing in the morning to discuss anxiety management Instructed to return to ED if: shortness of breath returns and does not resolve, develop chest pain, develop vision changes, develop worsened THAPA, develop altered mental status Blood Culture(s) Obtained: No Antibiotics given: No - Departure Departure Disposition: Home Clinical Impression: Panic attack Headache Qualifiers: Headache type: tension-type Headache chronicity pattern: acute headache Intractability: not intractable Qualified Code(s): G44.209 - Tension-type headache, unspecified, not intractable Condition: Stable Critical Care Time: No Referrals: LORETTA CAMPUZANO DO [Primary Care Provider] - Follow up/PCP as directed Additional Instructions: likely anxiety/panic attack plan to dc home with 1 tablet 0.5mg ativan that can be taken no sooner than 4h after discharge Instructed to f/u w/ PCP office (Dr Campuzano) first thing in the morning to discuss anxiety management Instructed to return to ED if: shortness of breath returns and does not resolve, develop chest pain, develop vision changes, develop worsened THAPA, develop altered mental status
[2023-12-07 20:45] LABS: Absolute Neutrophil Ct (ANC) 5.57 x10^3/uL (1.4-6.9); BASOPHIL % 0.8 % (0.0-0.4); Basophil (Absolute #) 0.08 x10^3/uL (0-0.4); Eosinophil % 1.2 % (0.00-5.0); Eosinophil (Absolute #) 0.13 x10^3/uL (0-0.5); Hematocrit 37.4 % (35-47); Hemoglobin 12.2 g/dL (12.0-16.0); IMMATURE GRAN # 0.03 x10^3u/L (0.00-0.03); IMMATURE GRAN % 0.3 % (0.00-0.4); Lymphocyte (Absolute #) 3.62 x10^3/uL (1.0-4.6); Lymphocytes % 34.7 % (24.0-44.0); Mean Cell Volume 95.7 fL (78-100); Mean Corpuscular Hemoglobin 31.2 pg (26-32); Mean Corpuscular Hgb Concent. 32.6 g/dL (32-36); Mean Platelet Volume 9.4 fL (7.5-11.0); Monocyte (Absolute #) 1.01 x10^3/uL (0.0-1.3); Monocytes % 9.7 % (0.0-12.0); Neutrophil % 53.3 % (36.0-66.0); Platelet Count 217 x10^3/uL (150-450); Red Blood Count 3.91 x10^6/uL (4.1-5.4); White Blood Count 10.4 x10^3/uL (4.0-10.5)
[2023-12-07 21:08] LABS: ALBUMIN 4.2 g/dL (3.5-5.0); ANION GAP 13.6 MEQ/L (5-15); BILIRUBIN,TOTAL 0.5 mg/dL (0.2-1.3); Calcium 9.4 mg/dL (8.4-10.2); Creatinine 1 1.13 mg/dL (0.52-1.04); EST GLOMERULAR FILTRATION RATE 47.7 ML/MIN; Potassium 3.8 mmol/L (3.5-5.1); Total Protein 7.1 g/dL (6.3-8.2)
[2023-12-07] MEDS ORDERED: Ativan 1 MG ONE (21:13)
[2023-12-07] MEDS: Ativan 1 MG PO ONE (21:17)
[2023-12-07] MEDS: Ativan 0.5 MG PO ONE (21:18)
--- NOTE | 2023-12-07 23:03 | XRAY ---
CLINICAL HISTORY: severe headache COMPARISON: 04/12/2021 TECHNIQUE: CT scan of the abdomen and pelvis was performed with IV contrast administration. Coronal and sagittal reconstructive images were also obtained. FINDINGS: Mild age-appropriate global involutional changes are identified as evident by prominent sulci and extra-axial CSF spaces. Mild periventricular deep white matter ischemic changes are identified. Small chronic lacunar infarcts are identified in bilateral basal ganglia and within the left insular cortex. No evidence of intracranial hemorrhage, gross established territorial infarction or mass effect. Bentley and white matter differentiation appears preserved. No midline shifts or deformity. No intracerebral or extra axial hematoma. Diffuse intracranial atherosclerosis is identified. Normal size and configuration of the cerebral ventricles. Normal CT appearance of the posterior fossa structures namely the cerebellar hemispheres, brainstem and cerebellar peduncles. The IACs are unremarkable. The cerebello-pontine angles are clear. The pituitary gland is unremarkable. The osseous structures in the skull base are unremarkable. No definite calvarium fractures. Almost complete opacification of the left maxillary sinus is identified with intervening hyperdensity and mild thickening and sclerosis of the maxillary sinus was representing features of chronic left-sided maxillary sinusitis. Rest of the visualized paranasal sinuses and bilateral mastoid air cells are clear. IMPRESSION: 1. No significant radiological interval change. 2. Age appropriate global involutional changes with mild periventricular deep white matter ischemia. 3. No evidence of intracranial hemorrhage, gross established territorial infarction or mass effect. 4. Chronic lacunar infarcts in the left insular cortex and bilateral basal ganglia. 5. Diffuse intracranial atherosclerosis. 6. Chronic left maxillary sinusitis. Electronically Signed by: Maria Luz Abreu MD. (12/07/2023 22:59:39 EDT)
[2023-12-07 23:19] VITALS: RESP 18
[2023-12-07 23:28] VITALS: O2SAT 98
[2023-12-08] MEDS ORDERED: Ativan 0.5 MG PO ONE (00:32)
[2023-12-08] MEDS ORDERED: Ativan 1 MG ONE (00:36)
[2023-12-08] MEDS: Ativan 1 MG PO PRN (00:42)
[2023-12-08 00:59] VITALS: BP 137/58; PULSE 99
--- NOTE | 2023-12-08 08:42 | XRAY ---
Indication: Short of breath. Comparison: November 20, 2023 Portable chest unchanged again with right hemidiaphragm elevation and minimal right midlung subsegmental atelectasis/scarring. Remaining heart and lungs unremarkable. Bony thorax intact again with osteopenia, degenerative changes, old left rib fractures, resection right clavicle, left shoulder arthroplasty, and right pacemaker. No new/acute findings.
== END 2023-12-08 01:00 | disposition home or self-care (01) ==
LOC: ED 19:37
DX: F41.0 Panic disorder [episodic paroxysmal anxiety] (principal); G44.209 Tension-type headache, unspecified, not intractable; R06.02 Shortness of breath; I10 Essential (primary) hypertension; Z79.01 Long term (current) use of anticoagulants; Z79.891 Long term (current) use of opiate analgesic; Z79.899 Other long term (current) drug therapy
CPT/HCPCS: 36415; 70450; 71045; 80053; 83880; 84484; 85025; 93005; 99284; A9270-GY

== ENCOUNTER 2024-02-07 18:13 | Emergency (ER) | payer MEDICARE ==
[2024-02-07 19:03] VITALS: TEMP 97.8
--- NOTE | 2024-02-07 19:21 | ERPHSYRPT ---
- History of Present Illness Time Seen by Provider: 02/07/24 19:18 Source: patient Exam Limitations: no limitations Patient Subjective Stated Complaint: pt here for anxiety attack , she states she has been nervous all day and none of her meds have helped, she states she was here 2 months ago for the same thing Triage Nursing Assessment: pt alert, resp easy, skin w/d/p. has tremors to hands, aabd soft,moves all ext well Physician History: 83yo f presents for sob that started this AM. Pt states she has very bad anxiet y, has felt like she is having an anxiety attack all day. Pt has had her daily anxiety medications changed in the past month, was seen in ED recently for similar episode. Pt reports taking 2 doses of her buspar w/o significant relief. Pt reports she has been tremulous today as well which is not her baseline. Pt reports she feels like she cannot take a deep breath. Pt denies any cp, n/v/abdominal pain, back pain. Does report mild THAPA that starts in her neck. Timing/Duration: today Activities at Onset: none Severity of Dyspnea-Max: mild Severity of Dyspnea-Current: none Possible Cause: occasional episodes Modifying Factors: Improves With: nothing Associated Symptoms: anxiety, No cough, No chest pain/discomfort, No fever, No wheezing, No chills, No lightheadedness, No productive cough Allergies/Adverse Reactions: amoxicillin Allergy (Verified 02/07/24 19:07) codeine Allergy (Verified 02/07/24 19:07) dicyclomine [From Bentyl] Allergy (Verified 02/07/24 19:07) eszopiclone [From Lunesta] Allergy (Verified 02/07/24 19:07) morphine Allergy (Verified 02/07/24 19:07) pregabalin [From Lyrica] Allergy (Verified 02/07/24 19:07) propoxyphene [From Darvon] Allergy (Verified 02/07/24 19:07) sulfamethoxazole [From Bactrim] Allergy (Verified 02/07/24 19:07) tetracycline Allergy (Verified 02/07/24 19:07) trimethoprim [From Bactrim] Allergy (Verified 02/07/24 19:07) Home Medications: Amlodipine Besylate 5 mg [Norvasc 5 mg] 2.5 mg PO DAILY 06/20/19 [History] Atorvastatin Calcium 10 mg PO QHS 06/20/19 [History] Losartan Potassium 50 mg [Cozaar 50 MG] 50 mg PO BID 06/20/19 [History] Multivit-Min/Iron/Folic/Lutein [Centrum Silver Women Tablet] 1 each PO DAILY 06/21/19 [History] Non-Formulary Drug [Non-Formulary Item] 2,500 mcg PO DAILY 06/21/19 [History] Non-Formulary Drug [Non-Formulary Item] 100 mg PO QHS 06/21/19 [History] Apixaban [Eliquis] 2.5 mg PO BID 11/20/23 [History] Cetirizine HCl [Zyrtec] 10 mg PO DAILY 11/20/23 [History] Metoprolol Succinate 25 mg Xl* [Toprol-Xl 25MG Tablets] 25 mg PO DAILY 11/20/23 [History] Tramadol HCl 50 mg [Ultram 50 mg] 50 mg PO BID 11/20/23 [History] Vit A/Vit C/Vit E/Zinc/Copper [Preservision Areds Tablet] 1 each PO BID 11/20/23 [History] Buspirone HCl 5 mg [Buspar 5 mg] 5 mg PO BID 12/07/23 [History] Gabapentin [Neurontin ] 100 mg PO BID 12/07/23 [History] Hx Tetanus, Diphtheria Vaccination/Date Given: Yes Hx Influenza Vaccination/Date Given: Yes Hx Pneumococcal Vaccination/Date Given: Yes Immunizations Up to Date: Yes Travel Risk - International Travel Have you traveled outside of the country in past 3 weeks: No - Emerging Infectious Disease Are you exhibiting symptoms associated with any current EIDs: No Symptoms: Shortness of Breath, Other (Please Comment) (Dry mouth) - Review of Systems Constitutional: No Symptoms Respiratory: Dyspnea, No Stridor, No Wheezing Cardiac: No Chest Pain, No Edema, No Palpitations, No Syncope Abdominal/Gastrointestinal: No Symptoms Neurological: No Symptoms Psychological: Anxiety - Past Medical History Pertinent Past Medical History: Yes Neurological History: No Pertinent History ENT History: No Pertinent History Cardiac History: Hypertension Respiratory History: No Pertinent History Endocrine Medical History: Hypothyroidism, Other Musculoskeletal History: Osteoarthritis GI Medical History: Diverticulitis, Diverticulosis History: No Pertinent History Psycho-Social History: Anxiety Female Reproductive Disorders: No Pertinent History Other Medical History: BORDERLINE DMII, DOES NOT TAKE MEDICATION FOR THIS. SEE LIST FOR MEDICATIONS TAKEN. - Past Surgical History Past Surgical History: Yes Neuro Surgical History: No Pertinent History Cardiac: Pacemaker Respiratory: No Pertinent History Gastrointestinal: Cholecystectomy Genitourinary: No Pertinent History Musculoskeletal: Orthopedic Surgery Female Surgical History: No Pertinent History Other Surgical History: thyroidectomy, rt rcr, surgery l5-s1, vein replacement to L shoulder d/t blockage - Social History Smoking Status: Never smoker Exposure to second hand smoke: No Drug Use: none Patient Lives Alone: No - Social Determinants of Health Will the patient participate in the screening: Yes Do you worry about a steady place to live?: No Do you have any problems with any of the following?: No known problems In the past 12 months,have you had to go without utilities?: No Transportation Issues: No Has anyone in your support network made you feel unsafe?: No Have you or anyone in your house had to go without enough: No - Nursing Vital Signs Nursing Vital Signs: Initial Vital Signs Temperature 97.8 F 02/07/24 19:02 Pulse Rate 73 02/07/24 19:02 Respiratory Rate 18 02/07/24 19:02 Blood Pressure 188/67 02/07/24 19:02 O2 Sat by Pulse Oximetry 97 02/07/24 19:02 Pain Scale Pain Intensity 5 - Physical Exam General Appearance: no apparent distress, alert, anxiety Respiratory Exam: normal breath sounds, lungs clear, airway intact, No chest tenderness, No respiratory distress Cardiovascular/Chest Exam: normal heart sounds, regular rate/rhythm, No murmur, No edema Neurologic Exam: alert, oriented x 3, cooperative, normal mood/affect, sensation nml, No motor deficits, No sensory deficit SpO2 Interpretation: normal SpO2: 97 O2 Delivery: Room Air - Course EKG Interpreted by Me: RATE (61), Other (atrial paced rhythm, no evidence of acute ischemia, qtcb 485) Ordered Tests: Active Orders 24 hr Category Date Time Status EKG-ER Only STAT Care 02/07/24 19:29 Active CHEST 1 VIEW (PORTABLE) Stat Exams 02/07/24 19:30 Taken CBC W DIFF Stat Lab 02/07/24 20:10 Results CMP Stat Lab 02/07/24 20:10 Completed Manual Differential NC Stat Lab 02/07/24 20:10 Results PROCALCITONIN Stat Lab 02/07/24 20:30 Completed Pathologist Review Stat Lab 02/07/24 20:10 Results TROPONIN Q4H Lab 02/07/24 20:10 Completed TROPONIN Q4H Lab 02/07/24 23:30 Ordered TROPONIN Q4H Lab 02/08/24 03:30 Ordered TSH [TSH, 3RD Generation] Stat Lab 02/07/24 20:20 Completed UA W/RFX UR CULTURE Stat Lab 02/07/24 19:50 Completed Medication Summary Discontinued Medications Generic Name Dose Route Start Last Admin Trade Name Freq PRN Reason Stop Dose Admin Lorazepam 0.5 mg 02/07/24 19:29 02/07/24 20:35 Lorazepam 1 Mg Tablet PO 02/07/24 19:30 0.5 mg STAT ONE Administration Lorazepam Confirm 02/07/24 20:33 Lorazepam 1 Mg Tablet Administered 02/07/24 20:34 Dose 1 mg .ROUTE .AudioBeta-MED ONE Lab/Rad Data: Laboratory Result Diagrams 02/07/24 20:10 Laboratory Results 02/07/24 02/07/24 02/07/24 Range/Units 20:30 20:20 20:10 WBC (3.98-10.04) x10^3/uL RBC (3.93-5.22) x10^6/uL Hgb (11.2-15.7) g/dL Hct (34.1-44.9) % MCV (79.4-94.8) fL MCH (25.6-32.2) pg MCHC (32.2-35.5) g/dL RDW (11.7-14.4) % Plt Count (182-369) x10^3/uL MPV (9.4-12.3) fL Segmented Neutrophils (1.56-6.13) % Lymphocytes (Manual) (24-44) % Monocytes (Manual) (0.0-12.0) % Platelet Estimate (NORMAL) RBC Morphology Microcytosis Smear Path Review Sodium (135-145) mmol/L Potassium (3.5-5.1) mmol/L Chloride (98-107) mmol/L Carbon Dioxide (22-30) mmol/L Anion Gap (5-15) MEQ/L BUN (7-17) mg/dL Creatinine (0.52-1.04) mg/dL Estimated GFR ML/MIN Glucose (74-106) mg/dL Calcium (8.4-10.2) mg/dL Total Bilirubin (0.2-1.3) mg/dL AST (14-36) U/L ALT (0-35) U/L Alkaline Phosphatase (38-126) U/L Troponin I < 0.012 (0.000-0.033) ng/mL Serum Total Protein (6.3-8.2) g/dL Albumin (3.5-5.0) g/dL Procalcitonin 0.052 (0.030-0.080) ng/mL TSH 3rd Generation 0.445 L (0.470-4.680) mIU/L Urine Color (Yellow) Urine Appearance (Clear) Urine pH (4.6-8.0) Ur Specific [place] (1.005-1.030) Urine Protein (Negative) Urine Glucose (UA) (Negative) mg/dL Urine Ketones (Negative) Urine Blood (Negative) Urine Nitrite (Negative) Urine Bilirubin (Negative) Urine Urobilinogen (0.2) mg/dL Ur Leukocyte Esterase (Negative) U Hyaline Cast (Auto) (0-2) /LPF Urine Microscopic RBC (0-5) /HPF Urine Microscopic WBC (0-5) /HPF Ur Epithelial Cells (None Seen) /HPF Urine Bacteria (None Seen) /HPF Urine Culture Reflexed (NO) 02/07/24 02/07/24 02/07/24 Range/Units 20:10 20:10 19:50 WBC 19.5 H (3.98-10.04) x10^3/uL RBC 4.05 (3.93-5.22) x10^6/uL Hgb 12.7 (11.2-15.7) g/dL Hct 38.0 (34.1-44.9) % MCV 93.8 (79.4-94.8) fL MCH 31.4 (25.6-32.2) pg MCHC 33.4 (32.2-35.5) g/dL RDW 13.7 (11.7-14.4) % Plt Count 266 (182-369) x10^3/uL MPV 9.4 (9.4-12.3) fL Segmented Neutrophils 57 H (1.56-6.13) % Lymphocytes (Manual) 39 (24-44) % Monocytes (Manual) 4 (0.0-12.0) % Platelet Estimate NORMAL (NORMAL) RBC Morphology ABNORMAL Microcytosis 1+ Smear Path Review Pending Sodium 133 L (135-145) mmol/L Potassium 4.5 (3.5-5.1) mmol/L Chloride 103 (98-107) mmol/L Carbon Dioxide 20 L (22-30) mmol/L Anion Gap 14.3 (5-15) MEQ/L BUN 26 H (7-17) mg/dL Creatinine 1.09 H (0.52-1.04) mg/dL Estimated GFR 49.8 ML/MIN Glucose 134 H (74-106) mg/dL Calcium 9.3 (8.4-10.2) mg/dL Total Bilirubin 0.80 (0.2-1.3) mg/dL AST 29 (14-36) U/L ALT 21 (0-35) U/L Alkaline Phosphatase 74 (38-126) U/L Troponin I (0.000-0.033) ng/mL Serum Total Protein 7.0 (6.3-8.2) g/dL Albumin 4.4 (3.5-5.0) g/dL Procalcitonin (0.030-0.080) ng/mL TSH 3rd Generation (0.470-4.680) mIU/L Urine Color Yellow (Yellow) Urine Appearance Clear (Clear) Urine pH 5.5 (4.6-8.0) Ur Specific [place] 1.015 (1.005-1.030) Urine Protein Negative (Negative) Urine Glucose (UA) Negative (Negative) mg/dL Urine Ketones Trace A (Negative) Urine Blood Negative (Negative) Urine Nitrite Negative (Negative) Urine Bilirubin Negative (Negative) Urine Urobilinogen 0.2 (0.2) mg/dL Ur Leukocyte Esterase Trace A (Negative) U Hyaline Cast (Auto) 0-2 (0-2) /LPF Urine Microscopic RBC 0-2 (0-5) /HPF Urine Microscopic WBC 0-2 (0-5) /HPF Ur Epithelial Cells Few (None Seen) /HPF Urine Bacteria Rare A (None Seen) /HPF Urine Culture Reflexed NO (NO) - Progress Progress: improved, re-examined Air Movement: good Progress Note: 02/07/24 20:42 re-examined, pt reports feeling much better after sitting in ED for about an hour plan to give 0.5mg ativan PO, will re-evaluate ekg not suggestive of ischemia, cxr no acute pathology labs pending 02/07/24 23:05 UA suggestive of mild UTI - will start macrobid outpatient leukocytosis likely 2/2 UTI vs prolonged periods of anxiety, recommend repeat labs outpatient to follow wbc count procal negative, no other clear source of infection, vitally stable throughout visit TSH elevated - pt has no thyroid and does not take levothyroxine daily plan to dc home with 7 day course of macrobid recommend close follow up in the next 1-2 days w/ PCP Dr Campuzano office recommend outpatient f/u w/ psychiatry for monitoring of anxiety/depression medications return to ED if: develop cp, develop difficulty breathing, develop confusion/dizziness/light headedness 02/07/24 23:10 02/07/24 23:11 Blood Culture(s) Obtained: No Antibiotics given: Yes Counseled pt/family regarding: lab results, diagnosis, need for follow-up, rad results Medical Desision Making - Diagnostic Testing Diagnostic test were ordered, analyzed, and reviewed by me: Yes Radiological Interpretation: Interpreted by me, Reviewed by me - Risk of complications Low Risk: Low risk of morbidity from additional dx testing or treatment - Departure Departure Disposition: Home Clinical Impression: UTI (urinary tract infection) Qualifiers: Urinary tract infection type: acute cystitis Hematuria presence: without hematuria Qualified Code(s): N30.00 - Acute cystitis without hematuria Leukocytosis, unspecified Qualifiers: Leukocytosis type: other Qualified Code(s): D72.828 - Other elevated white blood cell count Condition: Stable Critical Care Time: No Referrals: LORETTA CAMPUZANO DO [Primary Care Provider] - Follow up/PCP as directed Additional Instructions: plan to dc home with 7 day course of macrobid recommend close follow up in the next 1-2 days w/ PCP Dr Campuzano office recommend outpatient f/u w/ psychiatry for monitoring of anxiety/depression medications return to ED if: develop cp, develop difficulty breathing, develop confusion/dizziness/light headedness Prescriptions: Nitrofurantoin Macro 100 mg [Macrobid 100MG Capsule] 100 mg PO BID 7 Days #14 cap
[2024-02-07 20:22] LABS: Hemoglobin 12.7 g/dL (11.2-15.7); Mean Cell Volume 93.8 fL (79.4-94.8); Mean Corpuscular Hemoglobin 31.4 pg (25.6-32.2); Mean Corpuscular Hgb Concent. 33.4 g/dL (32.2-35.5); Mean Platelet Volume 9.4 fL (9.4-12.3); Platelet Count 266 x10^3/uL (182-369); Red Blood Count 4.05 x10^6/uL (3.93-5.22); Red Cell Distribution Width 13.7 % (11.7-14.4); White Blood Count 19.5 x10^3/uL (3.98-10.04)
[2024-02-07] MEDS ORDERED: Ativan 1 MG ONE (20:33)
[2024-02-07] MEDS: Ativan 1 MG PO ONE (20:35)
[2024-02-07 20:38] LABS: ALBUMIN 4.4 g/dL (3.5-5.0); ANION GAP 14.3 MEQ/L (5-15); BILIRUBIN,TOTAL 0.8 mg/dL (0.2-1.3); Calcium 9.3 mg/dL (8.4-10.2); Creatinine 1 1.09 mg/dL (0.52-1.04); EST GLOMERULAR FILTRATION RATE 49.8 ML/MIN; Potassium 4.5 mmol/L (3.5-5.1)
[2024-02-07 20:50] LABS: Appearance Clear (Clear); Bilirubin Negative (Negative); Blood Negative (Negative); Glucose, Urine Negative (Negative); Ketones Trace (Negative); Leukocyte Esterase Trace (Negative); Nitrite Negative (Negative); Ph 5.5 (4.6-8.0); Protein,Urine Dip Negative (Negative); RBC 0-2 /HPF (0-5); Specific Gravity 1.015 (1.005-1.030); Urobilinogen 0.2 mg/dL (0.2); WBC 0-2 /HPF (0-5)
[2024-02-07 20:52] LABS: ADD URINE CULTURE? NO (NO); Bacteria Rare /HPF (None Seen); Epithelial Cells Few /HPF (None Seen); Hyaline Casts 0-2 /LPF (0-2)
[2024-02-07 21:26] LABS: Lymphocytes 39 % (24-44); Microcytosis 1+; Monocyte 4 % (0.0-12.0); Neutrophils 57 % (1.56-6.13); Platelet Estimate NORMAL (NORMAL); Total Cells Counted 100
[2024-02-07 23:09] VITALS: O2SAT 97
[2024-02-07 23:21] VITALS: BP 142/71; PULSE 60; RESP 17
--- NOTE | 2024-02-08 08:37 | XRAY ---
Indication: Short of breath. Comparison: December 07, 2023 Portable chest remains inflated and clear with chronic right hemidiaphragm elevation. Heart not enlarged again with right pacemaker. Bony thorax intact again with osteopenia, mild degenerative changes, old left rib fractures, and left shoulder arthroplasty. Impression: Continued nonacute chest with chronic features.
== END 2024-02-07 23:30 | disposition home or self-care (01) ==
LOC: ED 18:13
DX: N30.00 Acute cystitis without hematuria (principal); D72.828 Other elevated white blood cell count; R06.02 Shortness of breath; R51.9 Headache, unspecified; I10 Essential (primary) hypertension; Z79.01 Long term (current) use of anticoagulants; Z79.899 Other long term (current) drug therapy
CPT/HCPCS: 36415; 71045; 80053; 81001; 84145; 84443; 84484; 85025; 93005; 99284; A9270-GY

== ENCOUNTER 2024-06-01 11:09 | Day surgery (SDC) | payer MEDICARE ==
[2024-06-01] MEDS ORDERED: LIDOCAINE HCL 1% AMPUL 5 ML IJ ONE (11:10)
[2024-06-01] MEDS ORDERED: Sodium Chloride 0.9(Preservative Free) 10 ML IJ ONE (11:10)
[2024-06-01] MEDS ORDERED: DIPRIVAN 200 MG/20 ML IV ONE (13:24)
[2024-06-01] MEDS ORDERED: Lactated Ringers 1,000 ML IV ONE (14:47)
--- NOTE | 2024-06-01 14:50 | XRAY ---
Indication: Lumbar NOÉ. Intraoperative fluoroscopy provided for 11 seconds. 3 digital spot images submitted for interpretation demonstrates needle tip projecting posterior to lumbosacral junction interspace. Small amount of contrast was injected for needle tip placement. Correlate with intraoperative findings/report.
--- NOTE | 2024-06-01 15:01 | XRAY ---
11 seconds of fluoroscopy was used in surgery for a lumbar NOÉ.
== END 2024-06-01 14:00 | disposition home or self-care (01) ==
LOC: SDC-PAIN 11:09
PROVIDERS: ATTEND Psychiatry & Neurology Pain Medicine
DX: M54.16 Radiculopathy, lumbar region (principal)
CPT/HCPCS: 62323; 72100; 77003; J2704; Q9966

== ENCOUNTER 2024-07-14 18:12 | Emergency (ER) | payer MEDICARE ==
[2024-07-14 18:30] VITALS: TEMP 97.2
[2024-07-14 18:55] LABS: Absolute Neutrophil Ct (ANC) 4.83 x10^3/uL (1.56-6.13); BASOPHIL % 0.9 % (0.1-1.2); Basophil (Absolute #) 0.08 x10^3/uL (0.01-0.08); Eosinophil % 1.5 % (0.7-5.8); Eosinophil (Absolute #) 0.14 x10^3/uL (0.04-0.36); Hematocrit 35.9 % (34.1-44.9); Hemoglobin 12.1 g/dL (11.2-15.7); IMMATURE GRAN # 0.02 x10^3u/L (0.001-0.031); IMMATURE GRAN % 0.2 % (0.001-0.429); Lymphocyte (Absolute #) 3.07 x10^3/uL (1.18-3.74); Lymphocytes % 33.8 % (19.3-51.7); Mean Cell Volume 94.5 fL (79.4-94.8); Mean Corpuscular Hemoglobin 31.8 pg (25.6-32.2); Mean Corpuscular Hgb Concent. 33.7 g/dL (32.2-35.5); Mean Platelet Volume 9.2 fL (9.4-12.3); Monocyte (Absolute #) 0.95 x10^3/uL (0.24-0.86); Monocytes % 10.5 % (4.7-12.5); Neutrophil % 53.1 % (34.0-71.1); Platelet Count 206 x10^3/uL (182-369); Red Cell Distribution Width 12.2 % (11.7-14.4); White Blood Count 9.1 x10^3/uL (3.98-10.04)
[2024-07-14 19:01] VITALS: RESP 18
[2024-07-14 19:10] LABS: ALBUMIN 4.2 g/dL (3.5-5.0); BILIRUBIN,TOTAL 0.6 mg/dL (0.2-1.3); Calcium 9.3 mg/dL (8.4-10.2); Creatinine 1 0.87 mg/dL (0.52-1.04); EST GLOMERULAR FILTRATION RATE 64.8 ML/MIN; Potassium 4.1 mmol/L (3.5-5.1); Total Protein 6.6 g/dL (6.3-8.2)
--- NOTE | 2024-07-14 19:14 | ERPHSYRPT ---
- History of Present Illness Time Seen by Provider: 07/14/24 19:11 Source: patient, family Exam Limitations: no limitations Patient Subjective Stated Complaint: pt here for possible uti, she states she has not been able to urinate well today, no pain or fever Triage Nursing Assessment: pt alert, arrived per wc, resp easy. skin w/d/pale , abd soft, Physician History: Patient is 84-year-old female with significant past medical history of coronary artery disease hypertensive heart disease with heart failure arrhythmia status post pacemaker placement atrial fibrillation history of generalized anxiety disorder started feeling uneasy since afternoon so she came to the emergency room she denies any fever chills nausea vomiting diarrhea blood in the stool or urine she also denies any chest pain headache shortness of breath. According to the daughter patient has a severe anxiety and patient's daughter says that she worries about everything. Timing/Duration: today Associated Symptoms: malaise, weakness Allergies/Adverse Reactions: amoxicillin Allergy (Verified 07/14/24 18:26) codeine Allergy (Verified 07/14/24 18:26) dicyclomine [From Bentyl] Allergy (Verified 07/14/24 18:26) eszopiclone [From Lunesta] Allergy (Verified 07/14/24 18:26) morphine Allergy (Verified 07/14/24 18:26) pregabalin [From Lyrica] Allergy (Verified 07/14/24 18:26) propoxyphene [From Darvon] Allergy (Verified 07/14/24 18:26) sulfamethoxazole [From Bactrim] Allergy (Verified 07/14/24 18:26) tetracycline Allergy (Verified 07/14/24 18:26) trimethoprim [From Bactrim] Allergy (Verified 07/14/24 18:26) Home Medications: Amlodipine Besylate 5 mg [Norvasc 5 mg] 2.5 mg PO DAILY 06/20/19 [History] Atorvastatin Calcium 10 mg PO QHS 06/20/19 [History] Losartan Potassium 50 mg [Cozaar 50 MG] 50 mg PO BID 06/20/19 [History] Multivit-Min/Iron/Folic/Lutein [Centrum Silver Women Tablet] 1 each PO DAILY [History] Non-Formulary Drug [Non-Formulary Item] 2,500 mcg PO DAILY 06/21/19 [History] Non-Formulary Drug [Non-Formulary Item] 100 mg PO QHS 06/21/19 [History] Apixaban [Eliquis] 2.5 mg PO BID 11/20/23 [History] Cetirizine HCl [Zyrtec] 10 mg PO DAILY 11/20/23 [History] Metoprolol Succinate 25 mg Xl* [Toprol-Xl 25MG Tablets] 25 mg PO DAILY 11/20/23 [History] Tramadol HCl 50 mg [Ultram 50 mg] 50 mg PO BID 11/20/23 [History] Vit A/Vit C/Vit E/Zinc/Copper [Preservision Areds Tablet] 1 each PO BID 11/20/23 [History] Buspirone HCl 5 mg [Buspar 5 mg] 5 mg PO BID 12/07/23 [History] Gabapentin [Neurontin ] 100 mg PO BID 12/07/23 [History] Hx Tetanus, Diphtheria Vaccination/Date Given: Yes Hx Influenza Vaccination/Date Given: No Hx Pneumococcal Vaccination/Date Given: Yes Immunizations Up to Date: Yes Travel Risk - International Travel Have you traveled outside of the country in past 3 weeks: No - Emerging Infectious Disease Are you exhibiting symptoms associated with any current EIDs: No Symptoms: Shortness of Breath, Other (Please Comment) (Dry mouth) - Review of Systems Constitutional: Lethargy, Malaise, Weakness, No Fever, No Chills Eyes: No Symptoms Ears, Nose, & Throat: No Symptoms Respiratory: No Cough, No Dyspnea Cardiac: No Chest Pain, No Edema, No Syncope Abdominal/Gastrointestinal: No Abdominal Pain, No Nausea, No Vomiting, No Diarrhea Genitourinary Symptoms: No Dysuria Musculoskeletal: No Back Pain, No Neck Pain Skin: No Rash Neurological: No Dizziness, No Focal Weakness, No Sensory Changes Psychological: No Symptoms Endocrine: No Symptoms All Other Systems: Reviewed and Negative - Past Medical History Pertinent Past Medical History: Yes Neurological History: No Pertinent History ENT History: No Pertinent History Cardiac History: Hypertension Respiratory History: No Pertinent History Endocrine Medical History: Hypothyroidism, Other Musculoskeletal History: Osteoarthritis GI Medical History: Diverticulitis, Diverticulosis History: No Pertinent History Psycho-Social History: Anxiety Female Reproductive Disorders: No Pertinent History Other Medical History: BORDERLINE DMII, DOES NOT TAKE MEDICATION FOR THIS. SEE LIST FOR MEDICATIONS TAKEN. - Past Surgical History Past Surgical History: Yes Neuro Surgical History: No Pertinent History Cardiac: Pacemaker Respiratory: No Pertinent History Gastrointestinal: Cholecystectomy Genitourinary: No Pertinent History Musculoskeletal: Orthopedic Surgery Female Surgical History: No Pertinent History Other Surgical History: thyroidectomy, rt rcr, surgery l5-s1, vein replacement to L shoulder d/t blockage - Social History Smoking Status: Never smoker Exposure to second hand smoke: No Drug Use: none Patient Lives Alone: No - Social Determinants of Health Will the patient participate in the screening: Yes Do you worry about a steady place to live?: No Do you have any problems with any of the following?: No known problems In the past 12 months,have you had to go without utilities?: No Transportation Issues: No Has anyone in your support network made you feel unsafe?: No Have you or anyone in your house had to go without enough: No - Nursing Vital Signs Nursing Vital Signs: Initial Vital Signs Temperature 97.2 F 07/14/24 18:29 Pulse Rate 73 07/14/24 18:29 Respiratory Rate 16 07/14/24 18:29 Blood Pressure 167/73 07/14/24 18:29 O2 Sat by Pulse Oximetry 96 07/14/24 18:29 Pain Scale Pain Intensity 0 - Physical Exam General Appearance: no apparent distress, alert, anxiety Eye Exam: PERRL/EOMI, eyes nml inspection Ears, Nose, Throat Exam: normal ENT inspection, TMs normal, pharynx normal, moist mucous membranes Neck Exam: normal inspection, non-tender, supple, full range of motion Respiratory Exam: normal breath sounds, lungs clear, No respiratory distress Cardiovascular Exam: regular rate/rhythm, normal heart sounds, normal peripheral pulses Gastrointestinal/Abdomen Exam: soft, normal bowel sounds, No tenderness, No mass Back Exam: normal inspection, normal range of motion, No CVA tenderness, No vertebral tenderness Extremity Exam: normal inspection, normal range of motion, pelvis stable Neurologic Exam: alert, oriented x 3, cooperative, normal mood/affect, nml cerebellar function, nml station & gait, sensation nml, No motor deficits Skin Exam: normal color, warm, dry, No rash Lymphatic Exam: No adenopathy SpO2 Interpretation: normal SpO2: 96 O2 Delivery: Room Air - Course Nursing assessment & vital signs reviewed: Yes Ordered Tests: Active Orders 24 hr Category Date Time Status IV Insertion STAT Care 07/14/24 18:51 Active CBC W DIFF Stat Lab 07/14/24 18:45 Completed CMP Stat Lab 07/14/24 18:45 Completed CULTURE,URINE Stat Lab 07/14/24 18:34 Ordered UA W/RFX UR CULTURE Stat Lab 07/14/24 18:38 Completed Lab/Rad Data: Laboratory Result Diagrams 07/14/24 18:45 07/14/24 18:45 Laboratory Results 07/14/24 07/14/24 07/14/24 Range/Units 18:45 18:45 18:38 WBC 9.1 (3.98-10.04) x10^3/uL RBC 3.80 L (3.93-5.22) x10^6/uL Hgb 12.1 (11.2-15.7) g/dL Hct 35.9 (34.1-44.9) % MCV 94.5 (79.4-94.8) fL MCH 31.8 (25.6-32.2) pg MCHC 33.7 (32.2-35.5) g/dL RDW 12.2 (11.7-14.4) % Plt Count 206 (182-369) x10^3/uL MPV 9.2 L (9.4-12.3) fL Gran % 53.1 (34.0-71.1) % Immature Gran % (Auto) 0.2 (0.001-0.429) % Nucleat RBC Rel Count 0.0 (0.00-0.2) % Eos # (Auto) 0.14 (0.04-0.36) x10^3/uL Immature Gran # (Auto) 0.02 (0.001-0.031) x10^3u/L Absolute Lymphs (auto) 3.07 (1.18-3.74) x10^3/uL Absolute Monos (auto) 0.95 H (0.24-0.86) x10^3/uL Absolute Nucleated RBC 0.00 (0.00-0.012) x10^3u/L Lymphocytes % 33.8 (19.3-51.7) % Monocytes % 10.5 (4.7-12.5) % Eosinophils % 1.5 (0.7-5.8) % Basophils % 0.9 (0.1-1.2) % Absolute Granulocytes 4.83 (1.56-6.13) x10^3/uL Basophils # 0.08 (0.01-0.08) x10^3/uL Sodium 134 L (135-145) mmol/L Potassium 4.1 (3.5-5.1) mmol/L Chloride 98 (98-107) mmol/L Carbon Dioxide 24 (22-30) mmol/L Anion Gap 16.0 H (5-15) MEQ/L BUN 12 (7-17) mg/dL Creatinine 0.87 (0.52-1.04) mg/dL Estimated GFR 64.8 ML/MIN Glucose 123 H (74-106) mg/dL Calcium 9.3 (8.4-10.2) mg/dL Total Bilirubin 0.60 (0.2-1.3) mg/dL AST 34 (14-36) U/L ALT 23 (0-35) U/L Alkaline Phosphatase 90 (38-126) U/L Serum Total Protein 6.6 (6.3-8.2) g/dL Albumin 4.2 (3.5-5.0) g/dL Urine Color Yellow (Yellow) Urine Appearance Clear (Clear) Urine pH 5.0 (4.6-8.0) Ur Specific [place] 1.020 (1.005-1.030) Urine Protein Negative (Negative) Urine Glucose (UA) Negative (Negative) mg/dL Urine Ketones Trace A (Negative) Urine Blood Negative (Negative) Urine Nitrite Negative (Negative) Urine Bilirubin Negative (Negative) Urine Urobilinogen 0.2 (0.2) mg/dL Ur Leukocyte Esterase Negative (Negative) U Hyaline Cast (Auto) 0-2 (0-2) /LPF Urine Microscopic RBC 0-2 (0-5) /HPF Urine Microscopic WBC 0-2 (0-5) /HPF Ur Epithelial Cells None Seen (None Seen) /HPF Urine Bacteria None Seen (None Seen) /HPF Urine Culture Reflexed ORDERED SEPARATELY (NO) - Progress Progress: improved Counseled pt/family regarding: lab results, diagnosis, need for follow-up Medical Desision Making - Independent Historian Additional History obtained from: Family - Diagnostic Testing Diagnostic test were ordered, analyzed, and reviewed by me: Yes - Risk of complications Minimal Risk: Minimal risk of morbidity - Departure Departure Disposition: Home Clinical Impression: Dysuria, Anxiety about health Condition: Stable Critical Care Time: No Referrals: CAMILLE MILLER [Primary Care Provider] - Follow up/PCP as directed Additional Instructions: Discharge/Care Plan WILLARD RUSS was seen on 07/14/24 in the Emergency Room. The patient was counseled regarding Diagnosis,Lab results, Imaging studies, need for follow up and when to return to the Emergency Room. Prescriptions given: Discharge Note I have spoken with the patient and/or caregivers. I have explained the patient's condition, diagnosis and treatment plan based on the information available to me at this time. I have answered the patient's and/or caregiver's questions and addressed any concerns. The patient and/or caregivers have as good understanding of the patient's diagnosis, condition and treatment plan as can be expected at this point. The vital signs have been stable. The patient's condition is stable and appropriate for discharge from the emergency department. The patient will pursue further outpatient evaluation with the primary care physician or other designated or consulting physician as outlined in the discharge instructions. The patient and/or caregivers are agreeable to this plan of care and follow-up instructions have been explained in detail. The patient and/or caregivers have received these instruction. The patient/and or caregivers are aware that any significant change in condition or worsening of symptoms should prompt an immediate return to this or the closest emergency department or call 911. WILLARD RUSS was seen on 07/14/24 n the Emergency Room. At that time you were treated for an emergent condition, during your visit Laboratory, Radiology and/or other procedures may have been ordered. It is very important that you follow-up with your Primary Care Physician CAMILLE MILLER within the next 24-48 hours to review your Emergency Room visit and the final results of testing that was ordered. Some test results such as Urine Cultures, Blood Cultures, and other cultures if ordered will not be finalized for 24-48 hours. If you do not have a Primary Care Provider please call the medical records department at [phone] ext [phone] to obtain a copy of your results or you may sign into our patient portal to obtain these results by visiting us @ [email or web address] and completing the following steps: 1. Click on the Patient Portal link 2. Click the Patient Self Enrollment Link to complete the enrollment form and entering your 3. Once the enrollment form is completed you will receive an email with a temporary ID and password at the email address you provided. 4. Next choose a user name and password. Your user name must be at least 4 ch aracters long and your password must be at least 4 characters long. 5. Choose a security question from the list and provide your answer to the question. If you already have signed into the Health Portal you may access your Health Care Information 23/03 by the following steps: 1. Login to our website @ [email or web address] 2. Enter your original user name and password. FAQS The [facility] Health Portal is an online tool that contains your Lab Results, Radiology Reports, Visit History, Discharge Instructions and Health Summary Lab and Radiology Results will not be available for 72 hours on the portal. The Portal is a secure site, passwords are encryted and URLs are re-written so they cannot be copied and pasted. You and authorized family members are the only ones who can access your Portal. Also there is a timeout feature that protects your information if you leave the Portal page open. If you have technical difficulty please use the Contact Us link on the page this will allow you to submit any questions you have regarding the Portal or you may contact the Medical Record Department at [phone] ext [phone].
[2024-07-14 19:30] LABS: Appearance Clear (Clear); Bacteria None Seen /HPF (None Seen); Bilirubin Negative (Negative); Blood Negative (Negative); Epithelial Cells None Seen /HPF (None Seen); Glucose, Urine Negative (Negative); Ketones Trace (Negative); Leukocyte Esterase Negative (Negative); Nitrite Negative (Negative); Protein,Urine Dip Negative (Negative); RBC 0-2 /HPF (0-5); Urobilinogen 0.2 mg/dL (0.2); WBC 0-2 /HPF (0-5)
[2024-07-14 19:31] LABS: Hyaline Casts 0-2 /LPF (0-2)
[2024-07-14 20:19] VITALS: BP 172/124; PULSE 74; O2SAT 97
== END 2024-07-14 20:19 | disposition home or self-care (01) ==
LOC: ED 18:12
DX: R30.0 Dysuria (principal); R33.9 Retention of urine, unspecified; F41.9 Anxiety disorder, unspecified; Z79.01 Long term (current) use of anticoagulants
CPT/HCPCS: 36415; 80053; 81001; 85025; 87086; 99283; P9612

== ENCOUNTER 2024-10-31 10:01 | Observation (INO) | payer MEDICARE ==
--- NOTE | 2024-10-31 11:34 | ERPHSYRPT ---
- History of Present Illness Time Seen by Provider: 10/31/24 11:33 Physician History: Patient is an 84-year-old female presents to our ED with her caregiver for evaluation of generalized weakness. Weakness has been ongoing for approximately 5 to 6 days. Patient saw her primary care doctor last . A urinalysis w as ordered. The results are not back. Patient adds that she has been experiencing some nausea and loose stools. Patient's caregiver believes patient has a "virus". Patient's symptoms are constant and progressive. Symptoms are moderate in intensity. No specific worsening or improving factors. Patient voices no other complaints or concerns at this time. Portions of this note were created with voice recognition technology. There may be grammatical, spelling, punctuation or sound alike errors Timing/Duration: week(s) (Approximately 5 to 6 days) Severity: moderate Modifying Factors: Improves With: nothing Associated Symptoms: denies symptoms Allergies/Adverse Reactions: amoxicillin Allergy (Verified 10/31/24 12:10) codeine Allergy (Verified 10/31/24 12:10) dicyclomine [From Bentyl] Allergy (Verified 10/31/24 12:10) eszopiclone [From Lunesta] Allergy (Verified 10/31/24 12:10) morphine Allergy (Verified 10/31/24 12:10) pregabalin [From Lyrica] Allergy (Verified 10/31/24 12:10) propoxyphene [From Darvon] Allergy (Verified 10/31/24 12:10) sulfamethoxazole [From Bactrim] Allergy (Verified 10/31/24 12:10) tetracycline Allergy (Verified 10/31/24 12:10) trimethoprim [From Bactrim] Allergy (Verified 10/31/24 12:10) Home Medications: Atorvastatin Calcium 20 mg PO QHS 06/20/19 [History] Losartan Potassium 50 mg [Cozaar 50 MG] 50 mg PO BID 06/20/19 [History] Non-Formulary Drug [Non-Formulary Item] 2,500 mcg PO DAILY 06/21/19 [History] Non-Formulary Drug [Non-Formulary Item] 100 mg PO QHS 06/21/19 [History] Apixaban [Eliquis] 2.5 mg PO BID 11/20/23 [History] Cetirizine HCl [Zyrtec] 10 mg PO DAILY 11/20/23 [History] Metoprolol Succinate 25 mg Xl* [Toprol-Xl 25MG Tablets] 25 mg PO DAILY 11/19 [History] Tramadol HCl 50 mg [Ultram 50 mg] 50 mg PO BID PRN 11/20/23 [History] Vit A/Vit C/Vit E/Zinc/Copper [Preservision Areds Tablet] 1 each PO BID 11/20/23 [History] Buspirone HCl 5 mg [Buspar 5 mg] 10 mg PO TID 12/07/23 [History] PARoxetine HCL [Paroxetine HCl] 10 mg PO DAILY 10/31/24 [History] Hx Tetanus, Diphtheria Vaccination/Date Given: Yes Hx Influenza Vaccination/Date Given: No Hx Pneumococcal Vaccination/Date Given: Yes Travel Risk - Emerging Infectious Disease Are you exhibiting symptoms associated with any current EIDs: No Symptoms: Shortness of Breath, Other (Please Comment) (Dry mouth) - Review of Systems Constitutional: No Symptoms, No Fever, No Chills Eyes: No Symptoms Ears, Nose, & Throat: No Symptoms Respiratory: No Symptoms, No Cough, No Dyspnea Cardiac: No Symptoms, No Chest Pain, No Edema, No Syncope Abdominal/Gastrointestinal: No Symptoms, No Abdominal Pain, No Nausea, No Vomiting, No Diarrhea Genitourinary Symptoms: No Symptoms, No Dysuria Musculoskeletal: No Symptoms, No Back Pain, No Neck Pain Skin: No Symptoms, No Rash Neurological: No Symptoms, No Dizziness, No Focal Weakness, No Sensory Changes Psychological: No Symptoms Endocrine: No Symptoms Hematologic/Lymphatic: No Symptoms Immunological/Allergic: No Symptoms All Other Systems: Reviewed and Negative - Past Medical History Neurological History: Stroke Cardiac History: Hypertension, Other Respiratory History: No Pertinent History Endocrine Medical History: No Pertinent History Musculoskeletal History: Osteoarthritis Other Medical History: PSH: PACEMAKER ON R SIDE, HX OF L SHOULDER ORIF, THYROIDECTOMY 30+ YEARS AGO, GALL BLADDER,. PMH: STROKE 8-10 YEARS AGO. ALLERGIES: SEE ABOVE - Past Surgical History Past Surgical History: Yes Neuro Surgical History: No Pertinent History Cardiac: Pacemaker Respiratory: No Pertinent History Gastrointestinal: Cholecystectomy Genitourinary: No Pertinent History Musculoskeletal: Orthopedic Surgery Female Surgical History: No Pertinent History Other Surgical History: thyroidectomy, rt rcr, surgery l5-s1, vein replacement to L shoulder d/t blockage - Social History Smoking Status: Never smoker Exposure to second hand smoke: No Drug Use: none Patient Lives Alone: No - Social Determinants of Health Will the patient participate in the screening: Yes Do you worry about a steady place to live?: No In the past 12 months,have you had to go without utilities?: No Transportation Issues: No Has anyone in your support network made you feel unsafe?: No Have you or anyone in your house had to go w/o enough food: No - Nursing Vital Signs Nursing Vital Signs: Initial Vital Signs Temperature 8.8 F 10/31/24 11:10 Pulse Rate 91 H 10/31/24 11:10 Respiratory Rate 23 10/31/24 11:10 Blood Pressure 171/76 10/31/24 11:10 O2 Sat by Pulse Oximetry 90 L 10/31/24 11:10 Pain Scale Pain Intensity 0 - Physical Exam General Appearance: no apparent distress, alert Eye Exam: PERRL/EOMI, eyes nml inspection Ears, Nose, Throat Exam: normal ENT inspection, moist mucous membranes Neck Exam: normal inspection, non-tender, supple, full range of motion Respiratory Exam: diminished breath sounds, crackles/rales (Bibasilar crackles. No respiratory distress), No respiratory distress Cardiovascular Exam: regular rate/rhythm, normal heart sounds, normal peripheral pulses Gastrointestinal/Abdomen Exam: soft, normal bowel sounds, No tenderness, No mass Back Exam: normal inspection, normal range of motion, No CVA tenderness, No vertebral tenderness Extremity Exam: normal inspection, normal range of motion, pelvis stable Neurologic Exam: alert, oriented x 3, cooperative, normal mood/affect, sensation nml, No motor deficits Skin Exam: normal color, warm, dry, No rash Lymphatic Exam: No adenopathy SpO2 Interpretation: normal O2 Delivery: Room Air - Course Nursing assessment & vital signs reviewed: Yes - Radiology Exams Chest X-ray Interpretation: Teleradiologist Report (Cardiomegaly, bibasilar effusion pulmonary edema) Ordered Tests: Active Orders 24 hr Category Date Time Status Furniture Maker STAT Care 10/31/24 11:32 Active IV Insertion STAT Care 10/31/24 11:31 Active Oxygen-ED Only Nasal Cannula 2 lpm Care 10/31/24 12:32 Active Pulse Oximetry (ED) STAT Care 10/31/24 11:31 Active CHEST 1 VIEW (PORTABLE) Stat Exams 10/31/24 11:32 Completed CBC W DIFF Stat Lab 10/31/24 11:25 Completed CMP Stat Lab 10/31/24 11:25 Completed CULTURE,URINE Stat Lab 10/31/24 11:56 Received NT PRO BNPII Stat Lab 10/31/24 11:25 Completed TROPONIN Q4H Lab 10/31/24 11:25 Completed TROPONIN Q4H Lab 10/31/24 15:45 Ordered TROPONIN Q4H Lab 10/31/24 19:45 Ordered UA W/RFX UR CULTURE Stat Lab 10/31/24 11:56 Completed Transfer Order Routine Transfer 10/31/24 Ordered Medication Summary Discontinued Medications Generic Name Dose Route Start Last Admin Trade Name Freq PRN Reason Stop Dose Admin Furosemide 20 mg 10/31/24 12:33 10/31/24 12:49 Furosemide 20 Mg/Vial IV 10/31/24 12:34 20 mg ONCE STA Administration Furosemide Confirm 10/31/24 12:49 Furosemide 20 Mg/Vial Administered 10/31/24 12:50 Dose 20 mg .ROUTE .[employer] ONE Lab/Rad Data: Laboratory Result Diagrams 10/31/24 11:25 10/31/24 11:25 Laboratory Results 10/31/24 10/31/24 10/31/24 Range/Units 11:56 11:44 11:25 WBC (3.98-10.04) x10^3/uL RBC (3.93-5.22) x10^6/uL Hgb (11.2-15.7) g/dL Hct (34.1-44.9) % MCV (79.4-94.8) fL MCH (25.6-32.2) pg MCHC (32.2-35.5) g/dL RDW (11.7-14.4) % Plt Count (182-369) x10^3/uL MPV (9.4-12.3) fL Gran % (34.0-71.1) % Immature Gran % (Auto) (0.001-0.429) % Nucleat RBC Rel Count (0.00-0.2) % Eos # (Auto) (0.04-0.36) x10^3/uL Immature Gran # (Auto) (0.001-0.031) x10^3u/L Absolute Lymphs (auto) (1.18-3.74) x10^3/uL Absolute Monos (auto) (0.24-0.86) x10^3/uL Absolute Nucleated RBC (0.00-0.012) x10^3u/L Lymphocytes % (19.3-51.7) % Monocytes % (4.7-12.5) % Eosinophils % (0.7-5.8) % Basophils % (0.1-1.2) % Absolute Granulocytes (1.56-6.13) x10^3/uL Basophils # (0.01-0.08) x10^3/uL Sodium (135-145) mmol/L Potassium (3.5-5.1) mmol/L Chloride (98-107) mmol/L Carbon Dioxide (22-30) mmol/L Anion Gap (5-15) MEQ/L BUN (7-17) mg/dL Creatinine (0.52-1.04) mg/dL Estimated GFR ML/MIN Glucose (74-106) mg/dL Calcium (8.4-10.2) mg/dL Total Bilirubin (0.2-1.3) mg/dL AST (14-36) U/L ALT (0-35) U/L Alkaline Phosphatase (38-126) U/L Troponin I 0.017 (0.000-0.033) ng/mL NT-Pro-B Natriuret Pep 5200 (<300) pg/mL Serum Total Protein (6.3-8.2) g/dL Albumin (3.5-5.0) g/dL Urine Color Dark Yellow A (Yellow) Urine Appearance Clear (Clear) Urine pH 5.0 (4.6-8.0) Ur Specific [place] 1.020 (1.005-1.030) Urine Protein 100 A (Negative) Urine Glucose (UA) Negative (Negative) mg/dL Urine Ketones 15 A (Negative) Urine Blood Trace (Negative) Urine Nitrite Negative (Negative) Urine Bilirubin Negative (Negative) Urine Urobilinogen 0.2 (0.2) mg/dL Ur Leukocyte Esterase Trace A (Negative) U Hyaline Cast (Auto) 6-10 A (0-2) /LPF Urine Microscopic RBC 0-2 (0-5) /HPF Urine Microscopic WBC 3-5 (0-5) /HPF Ur Epithelial Cells Rare (None Seen) /HPF Urine Bacteria None Seen (None Seen) /HPF Urine Culture Reflexed YES (NO) Influenza Type A Ag NEGATIVE (NEGATIVE) Influenza Type B Ag NEGATIVE (NEGATIVE) RSV (PCR) NEGATIVE (NEGATIVE) SARS-CoV-2 (PCR) NEGATIVE (NEGATIVE) 10/31/24 10/31/24 Range/Units 11:25 11:25 WBC 11.7 H (3.98-10.04) x10^3/uL RBC 3.89 L (3.93-5.22) x10^6/uL Hgb 12.1 (11.2-15.7) g/dL Hct 35.6 (34.1-44.9) % MCV 91.5 (79.4-94.8) fL MCH 31.1 (25.6-32.2) pg MCHC 34.0 (32.2-35.5) g/dL RDW 13.7 (11.7-14.4) % Plt Count 269 (182-369) x10^3/uL MPV 8.8 L (9.4-12.3) fL Gran % 63.0 (34.0-71.1) % Immature Gran % (Auto) 0.4 (0.001-0.429) % Nucleat RBC Rel Count 0.0 (0.00-0.2) % Eos # (Auto) 0.06 (0.04-0.36) x10^3/uL Immature Gran # (Auto) 0.05 H (0.001-0.031) x10^3u/L Absolute Lymphs (auto) 3.00 (1.18-3.74) x10^3/uL Absolute Monos (auto) 1.17 H (0.24-0.86) x10^3/uL Absolute Nucleated RBC 0.00 (0.00-0.012) x10^3u/L Lymphocytes % 25.6 (19.3-51.7) % Monocytes % 10.0 (4.7-12.5) % Eosinophils % 0.5 L (0.7-5.8) % Basophils % 0.5 (0.1-1.2) % Absolute Granulocytes 7.38 H (1.56-6.13) x10^3/uL Basophils # 0.06 (0.01-0.08) x10^3/uL Sodium 129 L (135-145) mmol/L Potassium 3.7 (3.5-5.1) mmol/L Chloride 94 L (98-107) mmol/L Carbon Dioxide 20 L (22-30) mmol/L Anion Gap 18.3 H (5-15) MEQ/L BUN 10 (7-17) mg/dL Creatinine 0.60 (0.52-1.04) mg/dL Estimated GFR 87.4 ML/MIN Glucose 133 H (74-106) mg/dL Calcium 9.2 (8.4-10.2) mg/dL Total Bilirubin 1.30 (0.2-1.3) mg/dL AST 45 H (14-36) U/L ALT 23 (0-35) U/L Alkaline Phosphatase 70 (38-126) U/L Troponin I (0.000-0.033) ng/mL NT-Pro-B Natriuret Pep (<300) pg/mL Serum Total Protein 7.0 (6.3-8.2) g/dL Albumin 4.5 (3.5-5.0) g/dL Urine Color (Yellow) Urine Appearance (Clear) Urine pH (4.6-8.0) Ur Specific [place] (1.005-1.030) Urine Protein (Negative) Urine Glucose (UA) (Negative) mg/dL Urine Ketones (Negative) Urine Blood (Negative) Urine Nitrite (Negative) Urine Bilirubin (Negative) Urine Urobilinogen (0.2) mg/dL Ur Leukocyte Esterase (Negative) U Hyaline Cast (Auto) (0-2) /LPF Urine Microscopic RBC (0-5) /HPF Urine Microscopic WBC (0-5) /HPF Ur Epithelial Cells (None Seen) /HPF Urine Bacteria (None Seen) /HPF Urine Culture Reflexed (NO) Influenza Type A Ag (NEGATIVE) Influenza Type B Ag (NEGATIVE) RSV (PCR) (NEGATIVE) SARS-CoV-2 (PCR) (NEGATIVE) - Progress Progress: improved Progress Note: 84-year-old female presents to our ED for evaluation of generalized weakness nausea and vomiting. Workup reveals hyponatremia. BNP elevated at 5200. Patient desatted in our ED to 88% after she fell asleep. Patient placed on 2 L nasal cannula. Chest x-ray reveals pulmonary edema and cardiomegaly. Patient received a dose of Lasix in our ED. Patient's hyponatremia is likely dilutional. Patient will require hospitalization for further evaluation and treatment. Patient denies a history of CHF. This appears to be a new diagnosis. Patient's caregiver is at the bedside. We discussed the need for hospitalization for further evaluation and treatment. Patient agrees to admission for further evaluation and treatment. Case discussed with hospitalist who accepts admission to observation at 12:45 PM. Portions of this note were created with voice recognition technology. There may be grammatical, spelling, punctuation or sound alike errors Complexity of problem addressed is moderate acute complicated. No critical care time. Complexity of data reviewed analyzes extensive. Test ordered chest reviewed results analyzed and correlated clinically with history and physical exam. Management discussed with hospitalist who accepts admission to observation at 12:45 PM. Risk of complication and or risk of morbidity/mortality of patient management is high. Patient requires hospitalization for further evaluation and treatment. Vital stable. Time spent admit patient is approximately 15 minutes. Plan of care established for shared decision making. No social determinants of health present to impede follow-up. Portions of this note were created with voice recognition technology. There may be grammatical, spelling, punctuation or sound alike errors 10/31/24 12:54 Counseled pt/family regarding: lab results, diagnosis, rad results - Departure Departure Disposition: Observation Clinical Impression: Nausea, Generalized weakness, Loose stools, Hyponatremia, Cardiomegaly, Elevated brain natriuretic peptide (BNP) level, Bibasilar effusion, Congestive heart failure, Pulmonary edema, Hypoxia Condition: Stable Critical Care Time: No Referrals: CAMILLE MILLER [Primary Care Provider] - Follow up/PCP as directed Instructions: Heart Failure
[2024-10-31 11:36] LABS: Absolute Neutrophil Ct (ANC) 7.38 x10^3/uL (1.56-6.13); BASOPHIL % 0.5 % (0.1-1.2); Basophil (Absolute #) 0.06 x10^3/uL (0.01-0.08); Eosinophil % 0.5 % (0.7-5.8); Eosinophil (Absolute #) 0.06 x10^3/uL (0.04-0.36); Hematocrit 35.6 % (34.1-44.9); Hemoglobin 12.1 g/dL (11.2-15.7); IMMATURE GRAN # 0.05 x10^3u/L (0.001-0.031); IMMATURE GRAN % 0.4 % (0.001-0.429); Lymphocytes % 25.6 % (19.3-51.7); Mean Cell Volume 91.5 fL (79.4-94.8); Mean Corpuscular Hemoglobin 31.1 pg (25.6-32.2); Mean Platelet Volume 8.8 fL (9.4-12.3); Monocyte (Absolute #) 1.17 x10^3/uL (0.24-0.86); Platelet Count 269 x10^3/uL (182-369); Red Blood Count 3.89 x10^6/uL (3.93-5.22); Red Cell Distribution Width 13.7 % (11.7-14.4); White Blood Count 11.7 x10^3/uL (3.98-10.04)
[2024-10-31 11:46] LABS: ALBUMIN 4.5 g/dL (3.5-5.0); ANION GAP 18.3 MEQ/L (5-15); BILIRUBIN,TOTAL 1.3 mg/dL (0.2-1.3); Calcium 9.2 mg/dL (8.4-10.2); Creatinine 1 0.6 mg/dL (0.52-1.04); EST GLOMERULAR FILTRATION RATE 87.4 ML/MIN; Potassium 3.7 mmol/L (3.5-5.1)
--- NOTE | 2024-10-31 11:55 | XRAY ---
Indication: Weakness. Comparison: February 07, 2024 Portable chest demonstrates new cardiomegaly, vascular congestion, and small bibasilar effusions favoring cardiac decompensation/CHF. Superposed pneumonia not completely excluded. Bony thorax intact again with osteopenia, degenerative changes, old left rib fractures, left shoulder arthroplasty, and right pacemaker.
[2024-10-31 11:58] LABS: TROPONIN 0.017 ng/mL (0.000-0.033)
[2024-10-31 12:14] LABS: Appearance Clear (Clear); Bacteria None Seen /HPF (None Seen); Bilirubin Negative (Negative); Blood Trace (Negative); Epithelial Cells Rare /HPF (None Seen); Glucose, Urine Negative (Negative); Ketones 15 (Negative); Leukocyte Esterase Trace (Negative); Nitrite Negative (Negative); Protein,Urine Dip 100 (Negative); RBC 0-2 /HPF (0-5); Urobilinogen 0.2 mg/dL (0.2)
[2024-10-31 12:23] LABS: INFLUENZA A NEGATIVE (NEGATIVE); INFLUENZA B NEGATIVE (NEGATIVE); RESPIRATORY SYNCTIAL VIRUS NEGATIVE (NEGATIVE); SARS-CoV-2 Xpert Express NEGATIVE (NEGATIVE)
[2024-10-31] MEDS ORDERED: Lasix 20 MG/2 ML ONE (12:49)
[2024-10-31] MEDS: Lasix 20 MG/2 ML IV STA (12:49)
[2024-10-31] MEDS ORDERED: Zofran 4 MG/2 ML VIAL ONE (13:08)
[2024-10-31] MEDS: Zofran 4 MG/2 ML VIAL IV ONE (13:09)
--- NOTE | 2024-10-31 13:50 | PCM.HP ---
<HOANG MIMS - Last Filed: 10/31/24 14:17> History of Present Illness - Chief Complaint Chief Complaint: CHF exacerbation/hyponatremia Date: 10/31/24 History of Present Illness: is a 84 year old female with a pmhx of AFIB ( on El iquis/pacemaker), HTN, and stroke who presented to ED with complaints of generalized weakness and progressive shortness of breath. Patient states that she was constipated and started taking stool softeners last . She woke up this morning with multiple diarrheal episodes and dry heaves. She also reports progressive shortness of breath with ambulation. Reports poor appetite over the past 2-3 days. No cough, congestion, fever, or recent sick contacts. No edema noted on exam. Denies fever,cough, cp, abdominal pain, THAPA, dizziness, N/V/D. Upon arrival to ED, patient hypoxic and hypertensive. She was placed on 2L of oxygen and is now resting more comfortably. CXR demonstrates new cardiomegaly, vascular congestion, and small bibasilar effusions favoring cardiac decompensation/CHF. She was given lasix and zofran in ED. Admit for CHF exacerbation. Medications & Allergies Home Medications: Home Medication List Atorvastatin Calcium 20 mg PO QHS 06/20/19 [History Confirmed 10/31/24] Losartan Potassium 50 mg [Cozaar 50 MG] 50 mg PO BID 06/20/19 [History Confirmed 10/31/24] Non-Formulary Drug [Non-Formulary Item] 2,500 mcg PO DAILY 06/21/19 [History Confirmed 10/31/24] Non-Formulary Drug [Non-Formulary Item] 100 mg PO QHS 06/21/19 [History Confirmed 10/31/24] Apixaban [Eliquis] 2.5 mg PO BID 11/20/23 [History Confirmed 10/31/24] Cetirizine HCl [Zyrtec] 10 mg PO DAILY 11/20/23 [History Confirmed 10/31/24] Metoprolol Succinate 25 mg Xl* [Toprol-Xl 25MG Tablets] 25 mg PO DAILY 11/20/23 [History Confirmed 10/31/24] Tramadol HCl 50 mg [Ultram 50 mg] 50 mg PO BID PRN 11/20/23 [History Confirmed 10/31/24] Vit A/Vit C/Vit E/Zinc/Copper [Preservision Areds Tablet] 1 each PO BID 11/20/23 [History Confirmed 10/31/24] Buspirone HCl 5 mg [Buspar 5 mg] 15 mg PO TID 12/07/23 [History Confirmed 10/31/24] PARoxetine HCL [Paroxetine HCl] 10 mg PO DAILY 10/31/24 [History Confirmed 10/31/24] Allergies/Adverse Reactions: Allergies Allergy/AdvReac Type Severity Reaction Status Date / Time amoxicillin Allergy Verified 10/31/24 13:52 codeine Allergy Verified 10/31/24 13:52 dicyclomine [From Bentyl] Allergy Verified 10/31/24 13:52 eszopiclone [From Lunesta] Allergy Verified 10/31/24 13:52 morphine Allergy Verified 10/31/24 13:52 pregabalin [From Lyrica] Allergy Verified 10/31/24 13:52 propoxyphene [From Darvon] Allergy Verified 10/31/24 13:52 sulfamethoxazole Allergy Verified 10/31/24 13:52 [From Bactrim] tetracycline Allergy Verified 10/31/24 13:52 trimethoprim [From Bactrim] Allergy Verified 10/31/24 13:52 - Past Medical History Past Medical History: Yes Neurological History: Stroke ENT History: No Pertinent History Cardiac History: Hypertension, Other Respiratory History: No Pertinent History Endocrine Medical History: No Pertinent History Musculoskelatal History: Osteoarthritis GI Medical History: Diverticulitis, Diverticulosis History: No Pertinent History Pyscho-Social History: Anxiety Reproductive Disorders: No Pertinent History Comment: PSH: PACEMAKER ON R SIDE, HX OF L SHOULDER ORIF, THYROIDECTOMY 30+ YEARS AGO, GALL BLADDER,. PMH: STROKE 8-10 YEARS AGO. ALLERGIES: SEE ABOVE - Past Surgical History Past Surgical History: Yes Neuro Surgical History: No Pertinent History Cardiac History: Pacemaker Respiratory Surgery: No Pertinent History GI Surgical History: Cholecystectomy Genitourinary Surgical Hx: No Pertinent History Musculskeletal Surgical Hx: Orthopedic Surgery Female Surgical History: No Pertinent History Other Surgical History: thyroidectomy, rt rcr, surgery l5-s1, vein replacement to L shoulder d/t blockage - Social History Smoking Status: Never smoker Exposure to second hand smoke: No Alcohol: None Drug Use: none - Social Determinants of Health Will the patient participate in the screening: Yes Do you worry about a steady place to live?: No Do you have any problems with any of the following?: No known problems In the past 12 months,have you had to go without utilities?: No Have you or anyone in your house had to go without enough: No Transportation Issues: No Has anyone in your support network made you feel unsafe?: No - Physical Exam Vital Signs: Vital Signs - 24 hr Temp Pulse Resp BP BP Pulse Ox 10/31/24 13:00 89 163/73 91 L 10/31/24 12:30 86 21 150/86 94 L 10/31/24 12:00 93 H 23 154/68 90 L 10/31/24 11:36 93 L 10/31/24 11:31 96 H 25 H 151/71 89 L 10/31/24 11:11 110 H 35 H 171/76 92 L 10/31/24 11:10 8.8 F 91 H 23 171/76 90 L Results - Labs Lab/Micro Results: Lab Results-Last 24 Hours 10/31/24 10/31/24 10/31/24 Range/Units 11:25 11:25 11:25 WBC 11.7 H (3.98-10.04) x10^3/uL RBC 3.89 L (3.93-5.22) x10^6/uL Hgb 12.1 (11.2-15.7) g/dL Hct 35.6 (34.1-44.9) % MCV 91.5 (79.4-94.8) fL MCH 31.1 (25.6-32.2) pg MCHC 34.0 (32.2-35.5) g/dL RDW 13.7 (11.7-14.4) % Plt Count 269 (182-369) x10^3/uL MPV 8.8 L (9.4-12.3) fL Gran % 63.0 (34.0-71.1) % Immature Gran % (Auto) 0.4 (0.001-0.429) % Nucleat RBC Rel Count 0.0 (0.00-0.2) % Eos # (Auto) 0.06 (0.04-0.36) x10^3/uL Immature Gran # (Auto) 0.05 H (0.001-0.031) x10^3u/L Absolute Lymphs (auto) 3.00 (1.18-3.74) x10^3/uL Absolute Monos (auto) 1.17 H (0.24-0.86) x10^3/uL Absolute Nucleated RBC 0.00 (0.00-0.012) x10^3u/L Lymphocytes % 25.6 (19.3-51.7) % Monocytes % 10.0 (4.7-12.5) % Eosinophils % 0.5 L (0.7-5.8) % Basophils % 0.5 (0.1-1.2) % Absolute Granulocytes 7.38 H (1.56-6.13) x10^3/uL Basophils # 0.06 (0.01-0.08) x10^3/uL Sodium 129 L (135-145) mmol/L Potassium 3.7 (3.5-5.1) mmol/L Chloride 94 L (98-107) mmol/L Carbon Dioxide 20 L (22-30) mmol/L Anion Gap 18.3 H (5-15) MEQ/L BUN 10 (7-17) mg/dL Creatinine 0.60 (0.52-1.04) mg/dL Estimated GFR 87.4 ML/MIN Glucose 133 H (74-106) mg/dL Calcium 9.2 (8.4-10.2) mg/dL Total Bilirubin 1.30 (0.2-1.3) mg/dL AST 45 H (14-36) U/L ALT 23 (0-35) U/L Alkaline Phosphatase 70 (38-126) U/L Troponin I 0.017 (0.000-0.033) ng/mL NT-Pro-B Natriuret Pep 5200 (<300) pg/mL Serum Total Protein 7.0 (6.3-8.2) g/dL Albumin 4.5 (3.5-5.0) g/dL Urine Color (Yellow) Urine Appearance (Clear) Urine pH (4.6-8.0) Ur Specific Patterson (1.005-1.030) Urine Protein (Negative) Urine Glucose (UA) (Negative) mg/dL Urine Ketones (Negative) Urine Blood (Negative) Urine Nitrite (Negative) Urine Bilirubin (Negative) Urine Urobilinogen (0.2) mg/dL Ur Leukocyte Esterase (Negative) U Hyaline Cast (Auto) (0-2) /LPF Urine Microscopic RBC (0-5) /HPF Urine Microscopic WBC (0-5) /HPF Ur Epithelial Cells (None Seen) /HPF Urine Bacteria (None Seen) /HPF Urine Culture Reflexed (NO) Influenza Type A Ag (NEGATIVE) Influenza Type B Ag (NEGATIVE) RSV (PCR) (NEGATIVE) SARS-CoV-2 (PCR) (NEGATIVE) 10/31/24 10/31/24 Range/Units 11:44 11:56 WBC (3.98-10.04) x10^3/uL RBC (3.93-5.22) x10^6/uL Hgb (11.2-15.7) g/dL Hct (34.1-44.9) % MCV (79.4-94.8) fL MCH (25.6-32.2) pg MCHC (32.2-35.5) g/dL RDW (11.7-14.4) % Plt Count (182-369) x10^3/uL MPV (9.4-12.3) fL Gran % (34.0-71.1) % Immature Gran % (Auto) (0.001-0.429) % Nucleat RBC Rel Count (0.00-0.2) % Eos # (Auto) (0.04-0.36) x10^3/uL Immature Gran # (Auto) (0.001-0.031) x10^3u/L Absolute Lymphs (auto) (1.18-3.74) x10^3/uL Absolute Monos (auto) (0.24-0.86) x10^3/uL Absolute Nucleated RBC (0.00-0.012) x10^3u/L Lymphocytes % (19.3-51.7) % Monocytes % (4.7-12.5) % Eosinophils % (0.7-5.8) % Basophils % (0.1-1.2) % Absolute Granulocytes (1.56-6.13) x10^3/uL Basophils # (0.01-0.08) x10^3/uL Sodium (135-145) mmol/L Potassium (3.5-5.1) mmol/L Chloride (98-107) mmol/L Carbon Dioxide (22-30) mmol/L Anion Gap (5-15) MEQ/L BUN (7-17) mg/dL Creatinine (0.52-1.04) mg/dL Estimated GFR ML/MIN Glucose (74-106) mg/dL Calcium (8.4-10.2) mg/dL Total Bilirubin (0.2-1.3) mg/dL AST (14-36) U/L ALT (0-35) U/L Alkaline Phosphatase (38-126) U/L Troponin I (0.000-0.033) ng/mL NT-Pro-B Natriuret Pep (<300) pg/mL Serum Total Protein (6.3-8.2) g/dL Albumin (3.5-5.0) g/dL Urine Color Dark Yellow A (Yellow) Urine Appearance Clear (Clear) Urine pH 5.0 (4.6-8.0) Ur Specific Patterson 1.020 (1.005-1.030) Urine Protein 100 A (Negative) Urine Glucose (UA) Negative (Negative) mg/dL Urine Ketones 15 A (Negative) Urine Blood Trace (Negative) Urine Nitrite Negative (Negative) Urine Bilirubin Negative (Negative) Urine Urobilinogen 0.2 (0.2) mg/dL Ur Leukocyte Esterase Trace A (Negative) U Hyaline Cast (Auto) 6-10 A (0-2) /LPF Urine Microscopic RBC 0-2 (0-5) /HPF Urine Microscopic WBC 3-5 (0-5) /HPF Ur Epithelial Cells Rare (None Seen) /HPF Urine Bacteria None Seen (None Seen) /HPF Urine Culture Reflexed YES (NO) Influenza Type A Ag NEGATIVE (NEGATIVE) Influenza Type B Ag NEGATIVE (NEGATIVE) RSV (PCR) NEGATIVE (NEGATIVE) SARS-CoV-2 (PCR) NEGATIVE (NEGATIVE) - Radiology Impressions Radiology Exams & Impressions: Radiology Procedures Category Date Time Status CHEST 1 VIEW (PORTABLE) Stat Exams 10/31/24 11:32 Completed Assessment/Plan (1) Congestive heart failure Current Visit: Yes Status: Acute Assessment & Plan: -New onset -CXR reviewed showing new cardiomegaly, vascular congestion, and small bibasilar effusions favoring cardiac decompensation/CHF. Superposed pneumonia not completely excluded. -BNP reviewed at 5200 -Tele -Supplemental oxygen with goal spo2 > 90% -Elevate HOB 30 - 45 degrees -Lasix 20mg given in ED- continue -Strict I&O -Optimize electrolytes -Consider cards consult Code(s): I50.9 - HEART FAILURE, UNSPECIFIED (2) Leukocytosis Current Visit: Yes Status: Acute Assessment & Plan: -UA unremarkable - Ucult reviewed from 10/27 with skin contaminant -CXR favoring CHF -?infective vs reactive - trend -CBC reviewed with WBC at 11.7- trend Code(s): D72.829 - ELEVATED WHITE BLOOD CELL COUNT, UNSPECIFIED (3) Metabolic acidosis Current Visit: Yes Status: Acute Assessment & Plan: -Most likely secondary to N/V -Co2 reviewed at 20- trend -IVF contraindicated -anti-emetics - supportive care Code(s): E87.20 - ACIDOSIS, UNSPECIFIED (4) Generalized weakness Current Visit: Yes Status: Acute Assessment & Plan: -Secondary to CHF exac -PT eval Code(s): R53.1 - WEAKNESS (5) Hyponatremia Current Visit: Yes Status: Acute Assessment & Plan: -In the setting of hypervolemia- Sodium reviewed at 129- trend -IVF contraindicated with CHF Code(s): E87.1 - HYPO-OSMOLALITY AND HYPONATREMIA (6) Nausea Current Visit: Yes Status: Acute Assessment & Plan: -Supportive care with anti-emetics Code(s): R11.0 - NAUSEA (7) Diarrhea Current Visit: Yes Status: Acute Assessment & Plan: - Patient states she took stool softeners for constipation -and now having diarrhea- will monitor closely- if persists will order stool studies VTE: Eliquis PPI: protonix Dispo: 1-2 days Code(s): R19.7 - DIARRHEA, UNSPECIFIED Telemedicine Encounter - Telemedicine Encounter Telemedicine Encounter: "The entirety of this encounter was performed via Telemedicine" This visit was performed using real-time audio and video connection between my location and thepatients locationwith the assistance of a surrogateat the patients location. Written or verbal consent was obtained from the patient/guardian to perform this visit using[facility] center[facility] technology. Any patient questions regarding the telemedicine interaction were answered. <KORAISHY,CHRISTINA - Last Filed: 10/31/24 20:32> History of Present Illness - Chief Complaint History of Present Illness: is a 84 year old female. - Physical Exam Vital Signs: Vital Signs - 24 hr Temp Pulse Resp BP BP Pulse Ox 10/31/24 19:52 98.4 F 95 H 15 134/62 93 L 10/31/24 19:39 94 L 10/31/24 16:45 78 18 94 L 10/31/24 16:00 97.3 F 78 18 141/75 94 L 10/31/24 15:14 97.3 F 95 H 19 141/75 94 L 10/31/24 13:00 89 163/73 91 L 10/31/24 12:30 86 21 150/86 94 L 10/31/24 12:00 93 H 23 154/68 90 L 10/31/24 11:36 93 L 10/31/24 11:31 96 H 25 H 151/71 89 L 10/31/24 11:11 110 H 35 H 171/76 92 L 10/31/24 11:10 8.8 F 91 H 23 171/76 90 L Results - Labs Lab/Micro Results: Lab Results-Last 24 Hours 10/31/24 10/31/24 10/31/24 Range/Units 11:25 11:25 11:25 WBC 11.7 H (3.98-10.04) x10^3/uL RBC 3.89 L (3.93-5.22) x10^6/uL Hgb 12.1 (11.2-15.7) g/dL Hct 35.6 (34.1-44.9) % MCV 91.5 (79.4-94.8) fL MCH 31.1 (25.6-32.2) pg MCHC 34.0 (32.2-35.5) g/dL RDW 13.7 (11.7-14.4) % Plt Count 269 (182-369) x10^3/uL MPV 8.8 L (9.4-12.3) fL Gran % 63.0 (34.0-71.1) % Immature Gran % (Auto) 0.4 (0.001-0.429) % Nucleat RBC Rel Count 0.0 (0.00-0.2) % Eos # (Auto) 0.06 (0.04-0.36) x10^3/uL Immature Gran # (Auto) 0.05 H (0.001-0.031) x10^3u/L Absolute Lymphs (auto) 3.00 (1.18-3.74) x10^3/uL Absolute Monos (auto) 1.17 H (0.24-0.86) x10^3/uL Absolute Nucleated RBC 0.00 (0.00-0.012) x10^3u/L Lymphocytes % 25.6 (19.3-51.7) % Monocytes % 10.0 (4.7-12.5) % Eosinophils % 0.5 L (0.7-5.8) % Basophils % 0.5 (0.1-1.2) % Absolute Granulocytes 7.38 H (1.56-6.13) x10^3/uL Basophils # 0.06 (0.01-0.08) x10^3/uL Sodium 129 L (135-145) mmol/L Potassium 3.7 (3.5-5.1) mmol/L Chloride 94 L (98-107) mmol/L Carbon Dioxide 20 L (22-30) mmol/L Anion Gap 18.3 H (5-15) MEQ/L BUN 10 (7-17) mg/dL Creatinine 0.60 (0.52-1.04) mg/dL Estimated GFR 87.4 ML/MIN Glucose 133 H (74-106) mg/dL Calcium 9.2 (8.4-10.2) mg/dL Total Bilirubin 1.30 (0.2-1.3) mg/dL AST 45 H (14-36) U/L ALT 23 (0-35) U/L Alkaline Phosphatase 70 (38-126) U/L Troponin I 0.017 (0.000-0.033) ng/mL NT-Pro-B Natriuret Pep 5200 (<300) pg/mL Serum Total Protein 7.0 (6.3-8.2) g/dL Albumin 4.5 (3.5-5.0) g/dL Urine Color (Yellow) Urine Appearance (Clear) Urine pH (4.6-8.0) Ur Specific Patterson (1.005-1.030) Urine Protein (Negative) Urine Glucose (UA) (Negative) mg/dL Urine Ketones (Negative) Urine Blood (Negative) Urine Nitrite (Negative) Urine Bilirubin (Negative) Urine Urobilinogen (0.2) mg/dL Ur Leukocyte Esterase (Negative) U Hyaline Cast (Auto) (0-2) /LPF Urine Microscopic RBC (0-5) /HPF Urine Microscopic WBC (0-5) /HPF Ur Epithelial Cells (None Seen) /HPF Urine Bacteria (None Seen) /HPF Urine Culture Reflexed (NO) Influenza Type A Ag (NEGATIVE) Influenza Type B Ag (NEGATIVE) RSV (PCR) (NEGATIVE) SARS-CoV-2 (PCR) (NEGATIVE) 10/31/24 10/31/24 10/31/24 Range/Units 11:44 11:56 15:58 WBC (3.98-10.04) x10^3/uL RBC (3.93-5.22) x10^6/uL Hgb (11.2-15.7) g/dL Hct (34.1-44.9) % MCV (79.4-94.8) fL MCH (25.6-32.2) pg MCHC (32.2-35.5) g/dL RDW (11.7-14.4) % Plt Count (182-369) x10^3/uL MPV (9.4-12.3) fL Gran % (34.0-71.1) % Immature Gran % (Auto) (0.001-0.429) % Nucleat RBC Rel Count (0.00-0.2) % Eos # (Auto) (0.04-0.36) x10^3/uL Immature Gran # (Auto) (0.001-0.031) x10^3u/L Absolute Lymphs (auto) (1.18-3.74) x10^3/uL Absolute Monos (auto) (0.24-0.86) x10^3/uL Absolute Nucleated RBC (0.00-0.012) x10^3u/L Lymphocytes % (19.3-51.7) % Monocytes % (4.7-12.5) % Eosinophils % (0.7-5.8) % Basophils % (0.1-1.2) % Absolute Granulocytes (1.56-6.13) x10^3/uL Basophils # (0.01-0.08) x10^3/uL Sodium (135-145) mmol/L Potassium (3.5-5.1) mmol/L Chloride (98-107) mmol/L Carbon Dioxide (22-30) mmol/L Anion Gap (5-15) MEQ/L BUN (7-17) mg/dL Creatinine (0.52-1.04) mg/dL Estimated GFR ML/MIN Glucose (74-106) mg/dL Calcium (8.4-10.2) mg/dL Total Bilirubin (0.2-1.3) mg/dL AST (14-36) U/L ALT (0-35) U/L Alkaline Phosphatase (38-126) U/L Troponin I 0.021 (0.000-0.033) ng/mL NT-Pro-B Natriuret Pep (<300) pg/mL Serum Total Protein (6.3-8.2) g/dL Albumin (3.5-5.0) g/dL Urine Color Dark Yellow A (Yellow) Urine Appearance Clear (Clear) Urine pH 5.0 (4.6-8.0) Ur Specific Patterson 1.020 (1.005-1.030) Urine Protein 100 A (Negative) Urine Glucose (UA) Negative (Negative) mg/dL Urine Ketones 15 A (Negative) Urine Blood Trace (Negative) Urine Nitrite Negative (Negative) Urine Bilirubin Negative (Negative) Urine Urobilinogen 0.2 (0.2) mg/dL Ur Leukocyte Esterase Trace A (Negative) U Hyaline Cast (Auto) 6-10 A (0-2) /LPF Urine Microscopic RBC 0-2 (0-5) /HPF Urine Microscopic WBC 3-5 (0-5) /HPF Ur Epithelial Cells Rare (None Seen) /HPF Urine Bacteria None Seen (None Seen) /HPF Urine Culture Reflexed YES (NO) Influenza Type A Ag NEGATIVE (NEGATIVE) Influenza Type B Ag NEGATIVE (NEGATIVE) RSV (PCR) NEGATIVE (NEGATIVE) SARS-CoV-2 (PCR) NEGATIVE (NEGATIVE) 10/31/24 Range/Units 19:54 WBC (3.98-10.04) x10^3/uL RBC (3.93-5.22) x10^6/uL Hgb (11.2-15.7) g/dL Hct (34.1-44.9) % MCV (79.4-94.8) fL MCH (25.6-32.2) pg MCHC (32.2-35.5) g/dL RDW (11.7-14.4) % Plt Count (182-369) x10^3/uL MPV (9.4-12.3) fL Gran % (34.0-71.1) % Immature Gran % (Auto) (0.001-0.429) % Nucleat RBC Rel Count (0.00-0.2) % Eos # (Auto) (0.04-0.36) x10^3/uL Immature Gran # (Auto) (0.001-0.031) x10^3u/L Absolute Lymphs (auto) (1.18-3.74) x10^3/uL Absolute Monos (auto) (0.24-0.86) x10^3/uL Absolute Nucleated RBC (0.00-0.012) x10^3u/L Lymphocytes % (19.3-51.7) % Monocytes % (4.7-12.5) % Eosinophils % (0.7-5.8) % Basophils % (0.1-1.2) % Absolute Granulocytes (1.56-6.13) x10^3/uL Basophils # (0.01-0.08) x10^3/uL Sodium (135-145) mmol/L Potassium (3.5-5.1) mmol/L Chloride (98-107) mmol/L Carbon Dioxide (22-30) mmol/L Anion Gap (5-15) MEQ/L BUN (7-17) mg/dL Creatinine (0.52-1.04) mg/dL Estimated GFR ML/MIN Glucose (74-106) mg/dL Calcium (8.4-10.2) mg/dL Total Bilirubin (0.2-1.3) mg/dL AST (14-36) U/L ALT (0-35) U/L Alkaline Phosphatase (38-126) U/L Troponin I 0.024 (0.000-0.033) ng/mL NT-Pro-B Natriuret Pep (<300) pg/mL Serum Total Protein (6.3-8.2) g/dL Albumin (3.5-5.0) g/dL Urine Color (Yellow) Urine Appearance (Clear) Urine pH (4.6-8.0) Ur Specific Patterson (1.005-1.030) Urine Protein (Negative) Urine Glucose (UA) (Negative) mg/dL Urine Ketones (Negative) Urine Blood (Negative) Urine Nitrite (Negative) Urine Bilirubin (Negative) Urine Urobilinogen (0.2) mg/dL Ur Leukocyte Esterase (Negative) U Hyaline Cast (Auto) (0-2) /LPF Urine Microscopic RBC (0-5) /HPF Urine Microscopic WBC (0-5) /HPF Ur Epithelial Cells (None Seen) /HPF Urine Bacteria (None Seen) /HPF Urine Culture Reflexed (NO) Influenza Type A Ag (NEGATIVE) Influenza Type B Ag (NEGATIVE) RSV (PCR) (NEGATIVE) SARS-CoV-2 (PCR) (NEGATIVE) - Radiology Impressions Radiology Exams & Impressions: Radiology Procedures Category Date Time Status CHEST 1 VIEW (PORTABLE) Stat Exams 10/31/24 11:32 Completed ECHO W/2D AND DOPPLER [US] Routine Exams 10/31/24 13:48 Taken - Other Procedures and Tests Respiratory Therapy 10/31/24 16:45 Oxygen NASAL CANNULA 2 lpm Telemedicine Encounter - Telemedicine Encounter Telemedicine Encounter: "The entirety of this encounter was performed via Telemedicine" This visit was performed using real-time audio and video connection between my location and thepatients locationwith the assistance of a surrogateat the patients location. Written or verbal consent was obtained from the patient/guardian to perform this visit usingRock[facility]Waitsupcine technology. Any patient questions regarding the telemedicine interaction were answered. MICHAEL Encounter - MICHAEL Encounter Attestation MICHAEL Encounter Attestation: "IhchristinpersonallysheathandexamineWILLARD Robertsoniscussed pertinent aspects of their care with Hoang Rodrigez agree with the history, physical exam (any modifications based on my personal exam will be noted below), assessment, and plan as outlined in original note. Please see immediately below for my summary of findings and additional assessment and plan along with any meaningful corrections/explanations to the Subjective/Objective portions of the MICHAEL note will be noted." My portion of the encounter took place via telemedicine. -Patient presenting with acute on chronic diastolic heart failure. Reports mild shortness of breath over the past few weeks, improved after lasix in the ER. No lower extremity edema but had pulm edema and elevated BNP. Will continue low dose IV lasix for tomorrow. Reports diarrhea for 1 day likely related to stool softener but will monitor for any worsening.
[2024-10-31] MEDS ORDERED: ULTRAM 50 MG PO PRN (14:42)
[2024-10-31] MEDS ORDERED: TYLENOL 325 MG PO PRN (14:49)
[2024-10-31] MEDS: BUSPAR 5 MG PO SCH (16:04)
[2024-10-31] MEDS: Zofran 4 MG/2 ML VIAL IV PRN (21:59)
[2024-10-31] MEDS ORDERED: NON-FORMULARY ITEM (Atorvastatin Calcium [Atorvastatin Calcium] 10 MG Tablet) PO SCH (22:00)
[2024-10-31] MEDS: ELIQUIS 2.5 MG TABLET PO SCH (22:05)
[2024-10-31] MEDS: Cozaar 50 MG PO SCH (22:05)
[2024-10-31] MEDS: LIPITOR 40MG PO SCH (22:05)
[2024-11-01 05:06] LABS: Absolute Neutrophil Ct (ANC) 4.09 x10^3/uL (1.56-6.13); BASOPHIL % 0.8 % (0.1-1.2); Basophil (Absolute #) 0.07 x10^3/uL (0.01-0.08); Eosinophil % 1.4 % (0.7-5.8); Eosinophil (Absolute #) 0.12 x10^3/uL (0.04-0.36); Hematocrit 33.1 % (34.1-44.9); Hemoglobin 11.4 g/dL (11.2-15.7); IMMATURE GRAN # 0.03 x10^3u/L (0.001-0.031); IMMATURE GRAN % 0.4 % (0.001-0.429); Lymphocytes % 35.6 % (19.3-51.7); Mean Cell Volume 93.2 fL (79.4-94.8); Mean Corpuscular Hemoglobin 32.1 pg (25.6-32.2); Mean Corpuscular Hgb Concent. 34.4 g/dL (32.2-35.5); Mean Platelet Volume 8.9 fL (9.4-12.3); Monocyte (Absolute #) 1.11 x10^3/uL (0.24-0.86); Monocytes % 13.2 % (4.7-12.5); Neutrophil % 48.6 % (34.0-71.1); Platelet Count 246 x10^3/uL (182-369); Red Blood Count 3.55 x10^6/uL (3.93-5.22); Red Cell Distribution Width 13.8 % (11.7-14.4); White Blood Count 8.4 x10^3/uL (3.98-10.04)
--- NOTE | 2024-11-01 05:08 | PCM.NOTE ---
Date and Time: 11/01/24 2757 Subjective Assessment: is a 84 year old female with a pmhx of AFIB ( on Eliquis/pacemaker), HTN, and stroke who presented to ED with complaints of generalized weakness and progressive shortness of breath. Patient states that she was constipated and started taking stool softeners last . She woke up this morning with multiple diarrheal episodes and dry heaves. She also reports progressive shortness of breath with ambulation. Reports poor appetite over the past 2-3 days. No cough, congestion, fever, or recent sick contacts. No edema noted on exam. Denies fever,cough, cp, abdominal pain, THAPA, dizziness, N/V/D. Upon arrival to ED, patient hypoxic and hypertensive. She was placed on 2L of oxygen and is now resting more comfortably. CXR demonstrates new cardiomegaly, vascular congestion, and small bibasilar effusions favoring cardiac decompensation/CHF. She was given lasix and zofran in ED. Admit for CHF exacerbation. 11/02/23: Met with patient bedside. Endorses improvement in dyspnea. Now on RA which is her baseline. Edema improved. Echo is pending final read. Plan to continue diuresis. Labs discussed showing continued hyponatremia and hypokalemia. Will replenish potassium today per protocol. Acidosis resolved. Most likely can discharge tomorrow. - Review of Systems Constitutional: No Symptoms Eyes: No Symptoms Ears, Nose, & Throat: No Symptoms Respiratory: Short Of Breath Cardiac: Edema (BLE +2 pitting ) Abdominal/Gastrointestinal: No Symptoms Genitourinary Symptoms: No Symptoms Musculoskeletal: No Symptoms Skin: No Symptoms Neurological: No Symptoms Endocrine: No Symptoms Hematologic/Lymphatic: No Symptoms Immunological/Allergic: No Symptoms Objective Exam General Appearance: no apparent distress Neurologic Exam: alert, oriented x 3, cooperative Skin Exam: normal color Eye Exam: PERRL Ears, Nose, Throat Exam: normal ENT inspection Neck Exam: normal inspection Respiratory Exam: crackles/rales Cardiovascular Exam: irregular Gastrointestinal/Abdomen Exam: soft, normal bowel sounds Extremity Exam: swelling (BLE +2 pitting) Back Exam: normal inspection Pelvic Exam: deferred Rectal Exam: deferred Objective Data Vital Signs: Vital Signs - 24 hr Temp Pulse Resp BP BP Pulse Ox 11/01/24 03:18 97.3 F 82 20 130/61 94 L 10/31/24 23:24 98.4 F 88 16 137/64 92 L 10/31/24 19:52 98.4 F 95 H 15 134/62 93 L 10/31/24 19:39 94 L 10/31/24 16:45 78 18 94 L 10/31/24 16:00 97.3 F 78 18 141/75 94 L 10/31/24 15:14 97.3 F 95 H 19 141/75 94 L 10/31/24 13:00 89 163/73 91 L 10/31/24 12:30 86 21 150/86 94 L 10/31/24 12:00 93 H 23 154/68 90 L 10/31/24 11:36 93 L 10/31/24 11:31 96 H 25 H 151/71 89 L 10/31/24 11:11 110 H 35 H 171/76 92 L 10/31/24 11:10 8.8 F 91 H 23 171/76 90 L Pain Assessment - Last Documented Pain Intensity 0 Intake and Output: Intake & Output 10/29/24 10/30/24 10/31/24 11/01/24 11:59 11:59 11:59 11:59 Intake Total 460 Balance 460 Weight 71 kg 69.7 kg Lab Results: Lab Results-Last 24 Hours 10/31/24 10/31/24 10/31/24 Range/Units 11:25 11:25 11:25 WBC 11.7 H (3.98-10.04) x10^3/uL RBC 3.89 L (3.93-5.22) x10^6/uL Hgb 12.1 (11.2-15.7) g/dL Hct 35.6 (34.1-44.9) % MCV 91.5 (79.4-94.8) fL MCH 31.1 (25.6-32.2) pg MCHC 34.0 (32.2-35.5) g/dL RDW 13.7 (11.7-14.4) % Plt Count 269 (182-369) x10^3/uL MPV 8.8 L (9.4-12.3) fL Gran % 63.0 (34.0-71.1) % Immature Gran % (Auto) 0.4 (0.001-0.429) % Nucleat RBC Rel Count 0.0 (0.00-0.2) % Eos # (Auto) 0.06 (0.04-0.36) x10^3/uL Immature Gran # (Auto) 0.05 H (0.001-0.031) x10^3u/L Absolute Lymphs (auto) 3.00 (1.18-3.74) x10^3/uL Absolute Monos (auto) 1.17 H (0.24-0.86) x10^3/uL Absolute Nucleated RBC 0.00 (0.00-0.012) x10^3u/L Lymphocytes % 25.6 (19.3-51.7) % Monocytes % 10.0 (4.7-12.5) % Eosinophils % 0.5 L (0.7-5.8) % Basophils % 0.5 (0.1-1.2) % Absolute Granulocytes 7.38 H (1.56-6.13) x10^3/uL Basophils # 0.06 (0.01-0.08) x10^3/uL Sodium 129 L (135-145) mmol/L Potassium 3.7 (3.5-5.1) mmol/L Chloride 94 L (98-107) mmol/L Carbon Dioxide 20 L (22-30) mmol/L Anion Gap 18.3 H (5-15) MEQ/L BUN 10 (7-17) mg/dL Creatinine 0.60 (0.52-1.04) mg/dL Estimated GFR 87.4 ML/MIN Glucose 133 H (74-106) mg/dL Calcium 9.2 (8.4-10.2) mg/dL Total Bilirubin 1.30 (0.2-1.3) mg/dL AST 45 H (14-36) U/L ALT 23 (0-35) U/L Alkaline Phosphatase 70 (38-126) U/L Troponin I 0.017 (0.000-0.033) ng/mL NT-Pro-B Natriuret Pep 5200 (<300) pg/mL Serum Total Protein 7.0 (6.3-8.2) g/dL Albumin 4.5 (3.5-5.0) g/dL Urine Color (Yellow) Urine Appearance (Clear) Urine pH (4.6-8.0) Ur Specific [place] (1.005-1.030) Urine Protein (Negative) Urine Glucose (UA) (Negative) mg/dL Urine Ketones (Negative) Urine Blood (Negative) Urine Nitrite (Negative) Urine Bilirubin (Negative) Urine Urobilinogen (0.2) mg/dL Ur Leukocyte Esterase (Negative) U Hyaline Cast (Auto) (0-2) /LPF Urine Microscopic RBC (0-5) /HPF Urine Microscopic WBC (0-5) /HPF Ur Epithelial Cells (None Seen) /HPF Urine Bacteria (None Seen) /HPF Urine Culture Reflexed (NO) Influenza Type A Ag (NEGATIVE) Influenza Type B Ag (NEGATIVE) RSV (PCR) (NEGATIVE) SARS-CoV-2 (PCR) (NEGATIVE) 10/31/24 10/31/24 10/31/24 Range/Units 11:44 11:56 15:58 WBC (3.98-10.04) x10^3/uL RBC (3.93-5.22) x10^6/uL Hgb (11.2-15.7) g/dL Hct (34.1-44.9) % MCV (79.4-94.8) fL MCH (25.6-32.2) pg MCHC (32.2-35.5) g/dL RDW (11.7-14.4) % Plt Count (182-369) x10^3/uL MPV (9.4-12.3) fL Gran % (34.0-71.1) % Immature Gran % (Auto) (0.001-0.429) % Nucleat RBC Rel Count (0.00-0.2) % Eos # (Auto) (0.04-0.36) x10^3/uL Immature Gran # (Auto) (0.001-0.031) x10^3u/L Absolute Lymphs (auto) (1.18-3.74) x10^3/uL Absolute Monos (auto) (0.24-0.86) x10^3/uL Absolute Nucleated RBC (0.00-0.012) x10^3u/L Lymphocytes % (19.3-51.7) % Monocytes % (4.7-12.5) % Eosinophils % (0.7-5.8) % Basophils % (0.1-1.2) % Absolute Granulocytes (1.56-6.13) x10^3/uL Basophils # (0.01-0.08) x10^3/uL Sodium (135-145) mmol/L Potassium (3.5-5.1) mmol/L Chloride (98-107) mmol/L Carbon Dioxide (22-30) mmol/L Anion Gap (5-15) MEQ/L BUN (7-17) mg/dL Creatinine (0.52-1.04) mg/dL Estimated GFR ML/MIN Glucose (74-106) mg/dL Calcium (8.4-10.2) mg/dL Total Bilirubin (0.2-1.3) mg/dL AST (14-36) U/L ALT (0-35) U/L Alkaline Phosphatase (38-126) U/L Troponin I 0.021 (0.000-0.033) ng/mL NT-Pro-B Natriuret Pep (<300) pg/mL Serum Total Protein (6.3-8.2) g/dL Albumin (3.5-5.0) g/dL Urine Color Dark Yellow A (Yellow) Urine Appearance Clear (Clear) Urine pH 5.0 (4.6-8.0) Ur Specific [place] 1.020 (1.005-1.030) Urine Protein 100 A (Negative) Urine Glucose (UA) Negative (Negative) mg/dL Urine Ketones 15 A (Negative) Urine Blood Trace (Negative) Urine Nitrite Negative (Negative) Urine Bilirubin Negative (Negative) Urine Urobilinogen 0.2 (0.2) mg/dL Ur Leukocyte Esterase Trace A (Negative) U Hyaline Cast (Auto) 6-10 A (0-2) /LPF Urine Microscopic RBC 0-2 (0-5) /HPF Urine Microscopic WBC 3-5 (0-5) /HPF Ur Epithelial Cells Rare (None Seen) /HPF Urine Bacteria None Seen (None Seen) /HPF Urine Culture Reflexed YES (NO) Influenza Type A Ag NEGATIVE (NEGATIVE) Influenza Type B Ag NEGATIVE (NEGATIVE) RSV (PCR) NEGATIVE (NEGATIVE) SARS-CoV-2 (PCR) NEGATIVE (NEGATIVE) 10/31/24 Range/Units 19:54 WBC (3.98-10.04) x10^3/uL RBC (3.93-5.22) x10^6/uL Hgb (11.2-15.7) g/dL Hct (34.1-44.9) % MCV (79.4-94.8) fL MCH (25.6-32.2) pg MCHC (32.2-35.5) g/dL RDW (11.7-14.4) % Plt Count (182-369) x10^3/uL MPV (9.4-12.3) fL Gran % (34.0-71.1) % Immature Gran % (Auto) (0.001-0.429) % Nucleat RBC Rel Count (0.00-0.2) % Eos # (Auto) (0.04-0.36) x10^3/uL Immature Gran # (Auto) (0.001-0.031) x10^3u/L Absolute Lymphs (auto) (1.18-3.74) x10^3/uL Absolute Monos (auto) (0.24-0.86) x10^3/uL Absolute Nucleated RBC (0.00-0.012) x10^3u/L Lymphocytes % (19.3-51.7) % Monocytes % (4.7-12.5) % Eosinophils % (0.7-5.8) % Basophils % (0.1-1.2) % Absolute Granulocytes (1.56-6.13) x10^3/uL Basophils # (0.01-0.08) x10^3/uL Sodium (135-145) mmol/L Potassium (3.5-5.1) mmol/L Chloride (98-107) mmol/L Carbon Dioxide (22-30) mmol/L Anion Gap (5-15) MEQ/L BUN (7-17) mg/dL Creatinine (0.52-1.04) mg/dL Estimated GFR ML/MIN Glucose (74-106) mg/dL Calcium (8.4-10.2) mg/dL Total Bilirubin (0.2-1.3) mg/dL AST (14-36) U/L ALT (0-35) U/L Alkaline Phosphatase (38-126) U/L Troponin I 0.024 (0.000-0.033) ng/mL NT-Pro-B Natriuret Pep (<300) pg/mL Serum Total Protein (6.3-8.2) g/dL Albumin (3.5-5.0) g/dL Urine Color (Yellow) Urine Appearance (Clear) Urine pH (4.6-8.0) Ur Specific [place] (1.005-1.030) Urine Protein (Negative) Urine Glucose (UA) (Negative) mg/dL Urine Ketones (Negative) Urine Blood (Negative) Urine Nitrite (Negative) Urine Bilirubin (Negative) Urine Urobilinogen (0.2) mg/dL Ur Leukocyte Esterase (Negative) U Hyaline Cast (Auto) (0-2) /LPF Urine Microscopic RBC (0-5) /HPF Urine Microscopic WBC (0-5) /HPF Ur Epithelial Cells (None Seen) /HPF Urine Bacteria (None Seen) /HPF Urine Culture Reflexed (NO) Influenza Type A Ag (NEGATIVE) Influenza Type B Ag (NEGATIVE) RSV (PCR) (NEGATIVE) SARS-CoV-2 (PCR) (NEGATIVE) Radiology Exams: Radiology Procedures Category Date Time Status CHEST 1 VIEW (PORTABLE) Stat Exams 10/31/24 11:32 Completed ECHO W/2D AND DOPPLER [US] Routine Exams 10/31/24 13:48 Taken Assessment/Plan (1) Congestive heart failure Current Visit: Yes Status: Acute Assessment & Plan: -New onset -CXR reviewed showing new cardiomegaly, vascular congestion, and small bibasilar effusions favoring cardiac decompensation/CHF. Superposed pneumonia not completely excluded. -BNP reviewed at 5200 -Tele -Supplemental oxygen with goal spo2 > 90% -Elevate HOB 30 - 45 degrees -Lasix 20mg given in ED- continue -Strict I&O -Optimize electrolytes -Consider cards consult 11/01/24: -continue lasix 20mg -Echo pending Code(s): I50.9 - HEART FAILURE, UNSPECIFIED (2) Leukocytosis Current Visit: Yes Status: Acute Assessment & Plan: -UA unremarkable - Ucult reviewed from 10/27 with skin contaminant -CXR favoring CHF -?infective vs reactive - trend -CBC reviewed with WBC at 11.7- trend 11/01/24 -WBC reviewed at 8.4 - resolved Code(s): D72.829 - ELEVATED WHITE BLOOD CELL COUNT, UNSPECIFIED (3) Metabolic acidosis Current Visit: Yes Status: Acute Assessment & Plan: -Most likely secondary to N/V -Co2 reviewed at 20- trend -IVF contraindicated -anti-emetics - supportive care 11/01/24: -CO2 reviewed at 25 - resolved Code(s): E87.20 - ACIDOSIS, UNSPECIFIED (4) Generalized weakness Current Visit: Yes Status: Acute Assessment & Plan: -Secondary to CHF exac -PT eval Code(s): R53.1 - WEAKNESS (5) Hyponatremia Current Visit: Yes Status: Acute Assessment & Plan: -In the setting of hypervolemia- Sodium reviewed at 129- trend -IVF contraindicated with CHF 11/01/24 -Sodium level reviewed at 128 Code(s): E87.1 - HYPO-OSMOLALITY AND HYPONATREMIA (6) Nausea Current Visit: Yes Status: Acute Assessment & Plan: -Supportive care with anti-emetics Code(s): R11.0 - NAUSEA (7) Diarrhea Current Visit: Yes Status: Acute Assessment & Plan: - Patient states she took stool softeners for constipation -and now having diarrhea- will monitor closely- if persists will order stool studies Hypokalemia -Potassium reviewed at 3.3- replenish per protocol -tele -Monitor renal/lytes daily VTE: Eliquis PPI: protonix Dispo: 1-2 days Code(s): I50.9 - HEART FAILURE, UNSPECIFIED (2) Leukocytosis Current Visit: Yes Status: Acute Code(s): D72.829 - ELEVATED WHITE BLOOD CELL COUNT, UNSPECIFIED (3) Metabolic acidosis Current Visit: Yes Status: Acute Code(s): E87.20 - ACIDOSIS, UNSPECIFIED (4) Generalized weakness Current Visit: Yes Status: Acute Code(s): R53.1 - WEAKNESS (5) Hyponatremia Current Visit: Yes Status: Acute Code(s): E87.1 - HYPO-OSMOLALITY AND HYPONATREMIA (6) Nausea Current Visit: Yes Status: Acute Code(s): R11.0 - NAUSEA (7) Diarrhea Current Visit: Yes Status: Acute Code(s): R19.7 - DIARRHEA, UNSPECIFIED (8) Hypokalemia Current Visit: Yes Status: Acute Code(s): E87.6 - HYPOKALEMIA
[2024-11-01 05:42] LABS: ALBUMIN 3.8 g/dL (3.5-5.0); ANION GAP 13.7 MEQ/L (5-15); BILIRUBIN,TOTAL 1.3 mg/dL (0.2-1.3); Calcium 8.7 mg/dL (8.4-10.2); Creatinine 1 0.67 mg/dL (0.52-1.04); EST GLOMERULAR FILTRATION RATE 85.1 ML/MIN; Potassium 3.3 mmol/L (3.5-5.1); Total Protein 6.1 g/dL (6.3-8.2)
[2024-11-01] MEDS: Klor Con PO SCH (07:44)
[2024-11-01] MEDS ORDERED: NON-FORMULARY ITEM (Paroxetine Hcl [Paroxetine Hcl] 10 MG Tablet) PO SCH (10:00)
[2024-11-01] MEDS ORDERED: NON-FORMULARY ITEM (Cetirizine Hcl [Zyrtec] 10 MG Tablet) PO SCH (10:00)
[2024-11-01] MEDS: Lasix 20 MG/2 ML IV SCH (10:05)
[2024-11-01] MEDS: Protonix 40MG Tablet PO SCH (10:06)
[2024-11-01] MEDS: CLARITIN 10 MG PO SCH (10:07)
[2024-11-01] MEDS: Paxil 20 MG PO SCH (10:08)
[2024-11-01] MEDS: Toprol-Xl 25MG Tablets PO SCH (10:09)
--- NOTE | 2024-11-02 05:12 | PCM.NOTE ---
Date and Time: 11/02/24510 Subjective Assessment: is a 84 year old female with a pmhx of AFIB ( on Eliquis/pacemaker), HTN, and stroke who presented to ED with complaints of generalized weakness and progressive shortness of breath. Patient states that she was constipated and started taking stool softeners last . She woke up this morning with multiple diarrheal episodes and dry heaves. She also reports progressive shortness of breath with ambulation. Reports poor appetite over the past 2-3 days. No cough, congestion, fever, or recent sick contacts. No edema noted on exam. Denies fever,cough, cp, abdominal pain, THAPA, dizziness, N/V/D. Upon arrival to ED, patient hypoxic and hypertensive. She was placed on 2L of oxygen and is now resting more comfortably. CXR demonstrates new cardiomegaly, vascular congestion, and small bibasilar effusions favoring cardiac decompensation/CHF. She was given lasix and zofran in ED. Admit for CHF exacerbation. 11/02/23: Met with patient bedside. Endorses improvement in dyspnea. Now on RA which is her baseline. Edema improved. Echo is pending final read. Plan to continue diuresis. Labs discussed showing continued hyponatremia and hypokalemia. Will replenish potassium today per protocol. Acidosis resolved. Most likely can discharge tomorrow. Objective Data Vital Signs: Vital Signs - 24 hr Temp Pulse Resp BP Pulse Ox 11/02/24 04:15 90 L 11/02/24 03:00 97.6 F 87 18 121/63 90 L 11/01/24 19:00 97.5 F 69 17 111/63 98 11/01/24 15:00 97.8 F 76 20 130/61 93 L 11/01/24 11:00 98.6 F 96 H 18 143/73 91 L 11/01/24 07:05 92 L 11/01/24 07:00 98.2 F 86 16 147/71 93 L 11/01/24 06:54 94 L Pain Assessment - Last Documented Pain Intensity 0 Intake and Output: Intake & Output 10/30/24 10/31/24 11/01/24 11/02/24 11:59 11:59 11:59 11:59 Intake Total 580 620 Output Total 1250 900 Balance -670 -280 Weight 71 kg 67.6 kg Lab Results: Lab Results-Last 24 Hours 11/01/24 11/01/24 11/01/24 Range/Units 05:01 05:01 05:01 WBC 8.4 (3.98-10.04) x10^3/uL RBC 3.55 L (3.93-5.22) x10^6/uL Hgb 11.4 (11.2-15.7) g/dL Hct 33.1 L (34.1-44.9) % MCV 93.2 (79.4-94.8) fL MCH 32.1 (25.6-32.2) pg MCHC 34.4 (32.2-35.5) g/dL RDW 13.8 (11.7-14.4) % Plt Count 246 (182-369) x10^3/uL MPV 8.9 L (9.4-12.3) fL Gran % 48.6 (34.0-71.1) % Immature Gran % (Auto) 0.4 (0.001-0.429) % Nucleat RBC Rel Count 0.0 (0.00-0.2) % Eos # (Auto) 0.12 (0.04-0.36) x10^3/uL Immature Gran # (Auto) 0.03 (0.001-0.031) x10^3u/L Absolute Lymphs (auto) 3.00 (1.18-3.74) x10^3/uL Absolute Monos (auto) 1.11 H (0.24-0.86) x10^3/uL Absolute Nucleated RBC 0.00 (0.00-0.012) x10^3u/L Lymphocytes % 35.6 (19.3-51.7) % Monocytes % 13.2 H (4.7-12.5) % Eosinophils % 1.4 (0.7-5.8) % Basophils % 0.8 (0.1-1.2) % Absolute Granulocytes 4.09 (1.56-6.13) x10^3/uL Basophils # 0.07 (0.01-0.08) x10^3/uL Sodium 128 L (135-145) mmol/L Potassium 3.3 L (3.5-5.1) mmol/L Chloride 93 L (98-107) mmol/L Carbon Dioxide 25 (22-30) mmol/L Anion Gap 13.7 (5-15) MEQ/L BUN 6 L (7-17) mg/dL Creatinine 0.67 (0.52-1.04) mg/dL Estimated GFR 85.1 ML/MIN Glucose 96 (74-106) mg/dL Calcium 8.7 (8.4-10.2) mg/dL Magnesium 1.8 (1.6-2.3) mg/dL Total Bilirubin 1.30 (0.2-1.3) mg/dL AST 34 (14-36) U/L ALT 17 (0-35) U/L Alkaline Phosphatase 68 (38-126) U/L Serum Total Protein 6.1 L (6.3-8.2) g/dL Albumin 3.8 (3.5-5.0) g/dL 11/01/24 11/01/24 Range/Units 11:30 15:45 WBC (3.98-10.04) x10^3/uL RBC (3.93-5.22) x10^6/uL Hgb (11.2-15.7) g/dL Hct (34.1-44.9) % MCV (79.4-94.8) fL MCH (25.6-32.2) pg MCHC (32.2-35.5) g/dL RDW (11.7-14.4) % Plt Count (182-369) x10^3/uL MPV (9.4-12.3) fL Gran % (34.0-71.1) % Immature Gran % (Auto) (0.001-0.429) % Nucleat RBC Rel Count (0.00-0.2) % Eos # (Auto) (0.04-0.36) x10^3/uL Immature Gran # (Auto) (0.001-0.031) x10^3u/L Absolute Lymphs (auto) (1.18-3.74) x10^3/uL Absolute Monos (auto) (0.24-0.86) x10^3/uL Absolute Nucleated RBC (0.00-0.012) x10^3u/L Lymphocytes % (19.3-51.7) % Monocytes % (4.7-12.5) % Eosinophils % (0.7-5.8) % Basophils % (0.1-1.2) % Absolute Granulocytes (1.56-6.13) x10^3/uL Basophils # (0.01-0.08) x10^3/uL Sodium (135-145) mmol/L Potassium 3.5 4.2 (3.5-5.1) mmol/L Chloride (98-107) mmol/L Carbon Dioxide (22-30) mmol/L Anion Gap (5-15) MEQ/L BUN (7-17) mg/dL Creatinine (0.52-1.04) mg/dL Estimated GFR ML/MIN Glucose (74-106) mg/dL Calcium (8.4-10.2) mg/dL Magnesium (1.6-2.3) mg/dL Total Bilirubin (0.2-1.3) mg/dL AST (14-36) U/L ALT (0-35) U/L Alkaline Phosphatase (38-126) U/L Serum Total Protein (6.3-8.2) g/dL Albumin (3.5-5.0) g/dL Radiology Exams: Radiology Procedures Category Date Time Status CHEST 1 VIEW (PORTABLE) Stat Exams 10/31/24 11:32 Completed ECHO W/2D AND DOPPLER [US] Routine Exams 10/31/24 13:48 Taken Multi-Disciplinary Progress Notes: Multi-Disciplinary Progress Notes 11/01/24 11:28 Case Management Note by Nora Love REFERRAL FAXED TO [facility]. THEY WILL NEED NOTIFIED AT TIME OF DC AT [phone]. THEY WILL NEED FAXED THE DC INSTRUCTIONS, DC MED LIST AND DC SUMMARY FAXED TO [phone] Initialized on 11/01/24 11:28 - END OF NOTE Assessment/Plan (1) Congestive heart failure Current Visit: Yes Status: Acute Assessment & Plan: -New onset -CXR reviewed showing new cardiomegaly, vascular congestion, and small bibasilar effusions favoring cardiac decompensation/CHF. Superposed pneumonia not completely excluded. -BNP reviewed at 5200 -Tele -Supplemental oxygen with goal spo2 > 90% -Elevate HOB 30 - 45 degrees -Lasix 20mg given in ED- continue -Strict I&O -Optimize electrolytes -Consider cards consult 11/01/24: -continue lasix 20mg -Echo pending Code(s): I50.9 - HEART FAILURE, UNSPECIFIED (2) Leukocytosis Current Visit: Yes Status: Acute Assessment & Plan: -UA unremarkable - Ucult reviewed from 10/27 with skin contaminant -CXR favoring CHF -?infective vs reactive - trend -CBC reviewed with WBC at 11.7- trend 11/01/24 -WBC reviewed at 8.4 - resolved Code(s): D72.829 - ELEVATED WHITE BLOOD CELL COUNT, UNSPECIFIED (3) Metabolic acidosis Current Visit: Yes Status: Acute Assessment & Plan: -Most likely secondary to N/V -Co2 reviewed at 20- trend -IVF contraindicated -anti-emetics - supportive care 11/01/24: -CO2 reviewed at 25 - resolved Code(s): E87.20 - ACIDOSIS, UNSPECIFIED (4) Generalized weakness Current Visit: Yes Status: Acute Assessment & Plan: -Secondary to CHF exac -PT eval Code(s): R53.1 - WEAKNESS (5) Hyponatremia Current Visit: Yes Status: Acute Assessment & Plan: -In the setting of hypervolemia- Sodium reviewed at 129- trend -IVF contraindicated with CHF 11/01/24 -Sodium level reviewed at 128 Code(s): E87.1 - HYPO-OSMOLALITY AND HYPONATREMIA (6) Nausea Current Visit: Yes Status: Acute Assessment & Plan: -Supportive care with anti-emetics Code(s): R11.0 - NAUSEA (7) Diarrhea Current Visit: Yes Status: Acute Assessment & Plan: - Patient states she took stool softeners for constipation -and now having diarrhea- will monitor closely- if persists will order stool studies Hypokalemia -Potassium reviewed at 3.3- replenish per protocol -tele -Monitor renal/lytes daily VTE: Eliquis PPI: protonix Dispo: 1-2 days Code(s): I50.9 - HEART FAILURE, UNSPECIFIED (2) Leukocytosis Current Visit: Yes Status: Acute Code(s): D72.829 - ELEVATED WHITE BLOOD CELL COUNT, UNSPECIFIED (3) Metabolic acidosis Current Visit: Yes Status: Acute Code(s): E87.20 - ACIDOSIS, UNSPECIFIED (4) Generalized weakness Current Visit: Yes Status: Acute Code(s): R53.1 - WEAKNESS (5) Hyponatremia Current Visit: Yes Status: Acute Code(s): E87.1 - HYPO-OSMOLALITY AND HYPONATREMIA (6) Nausea Current Visit: Yes Status: Acute Code(s): R11.0 - NAUSEA (7) Diarrhea Current Visit: Yes Status: Acute Code(s): R19.7 - DIARRHEA, UNSPECIFIED (8) Hypokalemia Current Visit: Yes Status: Acute Code(s): E87.6 - HYPOKALEMIA
[2024-11-02 05:32] LABS: Absolute Neutrophil Ct (ANC) 6.09 x10^3/uL (1.56-6.13); BASOPHIL % 0.6 % (0.1-1.2); Basophil (Absolute #) 0.06 x10^3/uL (0.01-0.08); Eosinophil (Absolute #) 0.21 x10^3/uL (0.04-0.36); Hematocrit 34.4 % (34.1-44.9); Hemoglobin 11.5 g/dL (11.2-15.7); IMMATURE GRAN # 0.03 x10^3u/L (0.001-0.031); IMMATURE GRAN % 0.3 % (0.001-0.429); Lymphocyte (Absolute #) 2.69 x10^3/uL (1.18-3.74); Lymphocytes % 25.9 % (19.3-51.7); Mean Cell Volume 96.1 fL (79.4-94.8); Mean Corpuscular Hemoglobin 32.1 pg (25.6-32.2); Mean Corpuscular Hgb Concent. 33.4 g/dL (32.2-35.5); Mean Platelet Volume 9.2 fL (9.4-12.3); Monocyte (Absolute #) 1.32 x10^3/uL (0.24-0.86); Monocytes % 12.7 % (4.7-12.5); Neutrophil % 58.5 % (34.0-71.1); Platelet Count 251 x10^3/uL (182-369); Red Blood Count 3.58 x10^6/uL (3.93-5.22); Red Cell Distribution Width 14.1 % (11.7-14.4); White Blood Count 10.4 x10^3/uL (3.98-10.04)
[2024-11-02 05:58] LABS: ALBUMIN 3.7 g/dL (3.5-5.0); Calcium 8.7 mg/dL (8.4-10.2); Creatinine 1 0.77 mg/dL (0.52-1.04); EST GLOMERULAR FILTRATION RATE 75.1 ML/MIN; MAGNESIUM 1.7 mg/dL (1.6-2.3); Potassium 4.3 mmol/L (3.5-5.1); Total Protein 5.9 g/dL (6.3-8.2)
[2024-11-02 07:39] VITALS: RESP 16
[2024-11-02 11:56] VITALS: BP 115/59; PULSE 84; TEMP 98.4; O2SAT 92
--- NOTE | 2024-11-02 11:58 | PCM.DS ---
Discharge Summary Date of Admission: 10/31/24 13:16 Date of Discharge: 11/02/24 Admitting Physician: CHRISTINA DUMONT MD Primary Care Provider: CAMILLE MILLER Allergies Allergies amoxicillin Allergy (Verified 10/31/24 13:52) codeine Allergy (Verified 10/31/24 13:52) dicyclomine [From Bentyl] Allergy (Verified 10/31/24 13:52) eszopiclone [From Lunesta] Allergy (Verified 10/31/24 13:52) morphine Allergy (Verified 10/31/24 13:52) pregabalin [From Lyrica] Allergy (Verified 10/31/24 13:52) propoxyphene [From Darvon] Allergy (Verified 10/31/24 13:52) sulfamethoxazole [From Bactrim] Allergy (Verified 10/31/24 13:52) tetracycline Allergy (Verified 10/31/24 13:52) trimethoprim [From Bactrim] Allergy (Verified 10/31/24 13:52) Hospital Summary - Hospital Course Hospital Course: is a 84 year old female with a pmhx of AFIB ( on Eliquis/pacemaker), HTN, and stroke who presented to ED with complaints of generalized weakness and progressive shortness of breath. Patient states that she was constipated and started taking stool softeners last . She woke up this morning with multiple diarrheal episodes and dry heaves. She also reports progressive shortness of breath with ambulation. Reports poor appetite over the past 2-3 days. No cough, congestion, fever, or recent sick contacts. No edema noted on exam. Denies fever,cough, cp, abdominal pain, THAPA, dizziness, N/V/D. Upon arrival to ED, patient hypoxic and hypertensive. She was placed on 2L of oxygen and is now resting more comfortably. CXR demonstrates new ca rdiomegaly, vascular congestion, and small bibasilar effusions favoring cardiac decompensation/CHF. She was given lasix and zofran in ED. Admit for CHF exacerbation. Dyspnea has improved. Now on RA. Does not qualify for home oxygen. Will set up overnight pulse ox as OP. No edema noted on exam. Weakness improved. Hypokalemia resolved/hyponatremia improved. Patient tolerating a diet. Patient is set up with [facility]. Will set up with cardiology and send home on lasix 40mg daily/potassium. Patient advised to monitor weight daily - if she has a weight gain of >3 lbs in one day or > 5 lbs in one week she is to contact cardiology. Discharge Note New Diagnosis: CHF exacerbation New Medications: Lasix/ potassium Follow Up: Cardiology I spent 35 minutes [id number] with the patient on the day of discharge performing discharge exam, discussing hospital stay and discharge instructions with patient and caregivers, preparation of discharge records, prescriptions & referral forms and addressing any questions/concerns the patient had as documented above. - Vitals & Intake/Output Vital Signs: Vital Signs Temperature 97.7 F 11/02/24 07:00 Pulse Rate 77 11/02/24 07:00 Respiratory Rate 16 11/02/24 07:00 Blood Pressure 135/84 11/02/24 07:00 O2 Sat by Pulse Oximetry 93 L 11/02/24 07:13 Intake & Output: Intake & Output 10/30/24 10/31/24 11/01/24 11/02/24 11:59 11:59 11:59 11:59 Intake Total 580 740 Output Total 1250 1150 Balance -670 -410 Weight 71 kg 67.6 kg 68.1 kg - Lab Result Diagrams: 11/02/24 05:26 11/02/24 05:26 Lab Results-Last 24 Hrs: Lab Results-Last 24 Hours 11/01/24 11/02/24 11/02/24 Range/Units 15:45 05:26 05:26 WBC 10.4 H (3.98-10.04) x10^3/uL RBC 3.58 L (3.93-5.22) x10^6/uL Hgb 11.5 (11.2-15.7) g/dL Hct 34.4 (34.1-44.9) % MCV 96.1 H (79.4-94.8) fL MCH 32.1 (25.6-32.2) pg MCHC 33.4 (32.2-35.5) g/dL RDW 14.1 (11.7-14.4) % Plt Count 251 (182-369) x10^3/uL MPV 9.2 L (9.4-12.3) fL Gran % 58.5 (34.0-71.1) % Immature Gran % (Auto) 0.3 (0.001-0.429) % Nucleat RBC Rel Count 0.0 (0.00-0.2) % Eos # (Auto) 0.21 (0.04-0.36) x10^3/uL Immature Gran # (Auto) 0.03 (0.001-0.031) x10^3u/L Absolute Lymphs (auto) 2.69 (1.18-3.74) x10^3/uL Absolute Monos (auto) 1.32 H (0.24-0.86) x10^3/uL Absolute Nucleated RBC 0.00 (0.00-0.012) x10^3u/L Lymphocytes % 25.9 (19.3-51.7) % Monocytes % 12.7 H (4.7-12.5) % Eosinophils % 2.0 (0.7-5.8) % Basophils % 0.6 (0.1-1.2) % Absolute Granulocytes 6.09 (1.56-6.13) x10^3/uL Basophils # 0.06 (0.01-0.08) x10^3/uL Sodium 130 L (135-145) mmol/L Potassium 4.2 4.3 (3.5-5.1) mmol/L Chloride 95 L (98-107) mmol/L Carbon Dioxide 26 (22-30) mmol/L Anion Gap 13.0 (5-15) MEQ/L BUN 6 L (7-17) mg/dL Creatinine 0.77 (0.52-1.04) mg/dL Estimated GFR 75.1 ML/MIN Glucose 100 (74-106) mg/dL Calcium 8.7 (8.4-10.2) mg/dL Magnesium 1.7 (1.6-2.3) mg/dL Total Bilirubin 1.00 (0.2-1.3) mg/dL AST 33 (14-36) U/L ALT 17 (0-35) U/L Alkaline Phosphatase 70 (38-126) U/L Serum Total Protein 5.9 L (6.3-8.2) g/dL Albumin 3.7 (3.5-5.0) g/dL Procalcitonin (0.030-0.080) ng/mL 11/02/24 Range/Units 05:26 WBC (3.98-10.04) x10^3/uL RBC (3.93-5.22) x10^6/uL Hgb (11.2-15.7) g/dL Hct (34.1-44.9) % MCV (79.4-94.8) fL MCH (25.6-32.2) pg MCHC (32.2-35.5) g/dL RDW (11.7-14.4) % Plt Count (182-369) x10^3/uL MPV (9.4-12.3) fL Gran % (34.0-71.1) % Immature Gran % (Auto) (0.001-0.429) % Nucleat RBC Rel Count (0.00-0.2) % Eos # (Auto) (0.04-0.36) x10^3/uL Immature Gran # (Auto) (0.001-0.031) x10^3u/L Absolute Lymphs (auto) (1.18-3.74) x10^3/uL Absolute Monos (auto) (0.24-0.86) x10^3/uL Absolute Nucleated RBC (0.00-0.012) x10^3u/L Lymphocytes % (19.3-51.7) % Monocytes % (4.7-12.5) % Eosinophils % (0.7-5.8) % Basophils % (0.1-1.2) % Absolute Granulocytes (1.56-6.13) x10^3/uL Basophils # (0.01-0.08) x10^3/uL Sodium (135-145) mmol/L Potassium (3.5-5.1) mmol/L Chloride (98-107) mmol/L Carbon Dioxide (22-30) mmol/L Anion Gap (5-15) MEQ/L BUN (7-17) mg/dL Creatinine (0.52-1.04) mg/dL Estimated GFR ML/MIN Glucose (74-106) mg/dL Calcium (8.4-10.2) mg/dL Magnesium (1.6-2.3) mg/dL Total Bilirubin (0.2-1.3) mg/dL AST (14-36) U/L ALT (0-35) U/L Alkaline Phosphatase (38-126) U/L Serum Total Protein (6.3-8.2) g/dL Albumin (3.5-5.0) g/dL Procalcitonin 0.041 (0.030-0.080) ng/mL Micro Results-Entire Visit: Microbiology 10/31/24 11:56 Urine Culture - Final Clean Catch Midstream MIXED LEONARD; 3 OR MORE TYPES. NO PREDOMINANT ORGANISM. NO FURTHER WORKUP. PLEASE RESUBMIT IF CLINICALLY INDICATED. - Radiology Exams Ordered Rad Exams-Entire Visit: Radiology Procedures Category Date Time Status CHEST 1 VIEW (PORTABLE) Stat Exams 10/31/24 11:32 Completed ECHO W/2D AND DOPPLER [US] Routine Exams 10/31/24 13:48 Taken - Procedures and Test Procedures and Tests throughout Hospitalization: Therapy Orders & Screens 10/31/24 14:49 Respiratory Therapy Consult ONCE Comment: Reason For Exam: Diagnosis: CHF exacerbation/hyponatremia 10/31/24 15:00 PT Eval & Treat ( Order) ONCE Reason for Eval:: weakness Diagnosis: CHF exacerbation/hyponatremia 10/31/24 16:45 Oxygen NASAL CANNULA 2 lpm Comment: Diagnosis: CHF, WEAKNESS 11/02/24 07:12 Qualify for Home Oxygen TODAY Comment: Diagnosis: CHF, WEAKNESS Discharge Exam General Appearance: no apparent distress Neurologic Exam: alert, oriented x 3, cooperative Eye Exam: PERRL Ears, Nose, Throat Exam: normal ENT inspection Neck Exam: normal inspection Respiratory Exam: lungs clear, diminished breath sounds Cardiovascular Exam: irregular Gastrointestinal/Abdomen Exam: soft, normal bowel sounds Pelvic Exam: deferred Rectal Exam: deferred Back Exam: normal inspection Extremity Exam: normal inspection Skin Exam: normal color Final Diagnosis/Problem List - Final Discharge Diagnosis/Problem (1) Congestive heart failure Current Visit: Yes Status: Acute Code(s): I50.9 - HEART FAILURE, UNSPECIFIED (2) Leukocytosis Current Visit: Yes Status: Acute Code(s): D72.829 - ELEVATED WHITE BLOOD CELL COUNT, UNSPECIFIED (3) Metabolic acidosis Current Visit: Yes Status: Resolved Code(s): E87.20 - ACIDOSIS, UNSPECIFIED (4) Generalized weakness Current Visit: Yes Status: Resolved Code(s): R53.1 - WEAKNESS (5) Hyponatremia Current Visit: Yes Status: Acute Code(s): E87.1 - HYPO-OSMOLALITY AND HYPONATREMIA (6) Nausea Current Visit: Yes Status: Resolved Code(s): R11.0 - NAUSEA (7) Diarrhea Current Visit: Yes Status: Resolved Code(s): R19.7 - DIARRHEA, UNSPECIFIED (8) Hypokalemia Current Visit: Yes Status: Resolved Code(s): E87.6 - HYPOKALEMIA - Discharge Discharge Date: 11/02/24 Disposition: HOME HEALTH SERVICE Condition: Stable Prescriptions: New Furosemide 40 mg [Lasix 40 MG] 40 mg PO DAILY 30 Days #30 tablet Potassium Chloride 20 meq PO DAILY 30 Days #30 tablet Continue Losartan Potassium 50 mg [Cozaar 50 MG] 50 mg PO BID Atorvastatin Calcium 20 mg PO QHS Non-Formulary Drug [Non-Formulary Item] 2,500 mcg PO DAILY Non-Formulary Drug [Non-Formulary Item] 100 mg PO QHS Vit A/Vit C/Vit E/Zinc/Copper [Preservision Areds Tablet] 1 each PO BID Tramadol HCl 50 mg [Ultram 50 mg] 50 mg PO BID PRN PRN Reason: Pain Metoprolol Succinate 25 mg Xl* [Toprol-Xl 25MG Tablets] 25 mg PO DAILY Apixaban [Eliquis] 2.5 mg PO BID Cetirizine HCl [Zyrtec] 10 mg PO DAILY Buspirone HCl 5 mg [Buspar 5 mg] 15 mg PO TID PARoxetine HCL [Paroxetine HCl] 10 mg PO DAILY Outpatient Orders: Overnight Pulse Ox Time Frame: 1 Week, Facility: [facility], Location: RESPIRATORY THERAPY Additional Instructions: [facility] HAS BEEN SET UP FOR YOU. THEY WILL CALL YOU TO ARRANGE A TIME TO COME SEE YOU. THEIR PHONE NUMBER IS [phone] IF YOU NEED ANYTHING PRIOR TO THEIR FIRST VISIT Monitor weight daily - if you notice a weight gain of >3 lbs in one day or > 5 lbs in one week contact cardiology. Follow up with: CAMILLE MILLER [Primary Care Provider] - 11/14/24 10:15 am
== END 2024-11-02 16:20 | disposition home health service (06) ==
LOC: ED 10:01 → MED SURG 13:16
PROVIDERS: ADMIT Internal Medicine; ATTEND Internal Medicine
DX: I11.0 Hypertensive heart disease with heart failure (principal); I50.9 Heart failure, unspecified; D72.829 Elevated white blood cell count, unspecified; E87.20 Acidosis, unspecified; R53.1 Weakness; R06.02 Shortness of breath; E87.1 Hypo-osmolality and hyponatremia; R11.0 Nausea; R19.7 Diarrhea, unspecified; E87.6 Hypokalemia; I48.91 Unspecified atrial fibrillation; R60.0 Localized edema; Z79.01 Long term (current) use of anticoagulants; Z79.899 Other long term (current) drug therapy; Z86.73 Personal history of transient ischemic attack (TIA), and cerebral infarction without residual deficits
CPT/HCPCS: 0241U; 36415; 71045; 80053; 81001; 83735; 83880; 84132; 84145; 84484; 85025; 87086; 93041; 93268; 93306; 94760; 94762; 96374; 96375; 97161; 97530; 99285; G0378; Q3014; 99284; J1940; J2405; A9270-GY

== ENCOUNTER 2024-11-03 13:41 | Emergency (ER) | payer MEDICARE ==
[2024-11-03 13:53] VITALS: TEMP 97.7
[2024-11-03 15:31] LABS: BASOPHIL % 1.1 % (0.1-1.2); Eosinophil % 2.5 % (0.7-5.8); Eosinophil (Absolute #) 0.23 x10^3/uL (0.04-0.36); Hematocrit 37.1 % (34.1-44.9); Hemoglobin 12.3 g/dL (11.2-15.7); IMMATURE GRAN # 0.03 x10^3u/L (0.001-0.031); IMMATURE GRAN % 0.3 % (0.001-0.429); Lymphocyte (Absolute #) 2.79 x10^3/uL (1.18-3.74); Lymphocytes % 30.3 % (19.3-51.7); Mean Cell Volume 93.9 fL (79.4-94.8); Mean Corpuscular Hemoglobin 31.1 pg (25.6-32.2); Mean Corpuscular Hgb Concent. 33.2 g/dL (32.2-35.5); Mean Platelet Volume 8.6 fL (9.4-12.3); Monocyte (Absolute #) 1.07 x10^3/uL (0.24-0.86); Monocytes % 11.6 % (4.7-12.5); Neutrophil % 54.2 % (34.0-71.1); Platelet Count 253 x10^3/uL (182-369); Red Blood Count 3.95 x10^6/uL (3.93-5.22); Red Cell Distribution Width 13.9 % (11.7-14.4); White Blood Count 9.2 x10^3/uL (3.98-10.04)
[2024-11-03 15:51] LABS: Appearance Clear (Clear); Bacteria None Seen /HPF (None Seen); Bilirubin Negative (Negative); Blood Negative (Negative); Epithelial Cells None Seen /HPF (None Seen); Glucose, Urine Negative (Negative); Hyaline Casts NONE SEEN /LPF (0-2); Ketones Negative (Negative); Leukocyte Esterase Small (Negative); Nitrite Negative (Negative); Protein,Urine Dip Negative (Negative); RBC 0-2 /HPF (0-5); Specific Gravity <=1.005 (1.005-1.030); Urobilinogen 0.2 mg/dL (0.2); WBC 0-2 /HPF (0-5)
--- NOTE | 2024-11-03 16:13 | ERPHSYRPT ---
- History of Present Illness Time Seen by Provider: 11/03/24 13:46 Source: patient, family Exam Limitations: no limitations Patient Subjective Stated Complaint: pt sent from home by homehealth nurse for high b/p and low o2 sat, pt was dc yesterday from this hospital. pt denies any co's at this time Triage Nursing Assessment: pt alert, arrived per wc, minimal help to get undress, resp easy , chest clear, abd soft, no cough, has bruising to right arms Physician History: 84 years old female with history of atrial fibrillation on Eliquis,/pacemaker placement, recently admitted for CHF exacerbation, discharged yesterday presented in the ER after home health noticed her oxygen was dropping and in 80s and her blood pressure was high. Patient although denies having any complaints of chest pain palpitations or shortness of breath. Patient oxygen saturation while resting is in 88%. Blood pressure is in 140s. No increased swelling of lower extremities. She is taking Lasix as per recommended by hospitalist. No fever or chills reported. Allergies/Adverse Reactions: amoxicillin Allergy (Verified 11/03/24 13:49) codeine Allergy (Verified 11/03/24 13:49) dicyclomine [From Bentyl] Allergy (Verified 11/03/24 13:49) eszopiclone [From Lunesta] Allergy (Verified 11/03/24 13:49) morphine Allergy (Verified 11/03/24 13:49) pregabalin [From Lyrica] Allergy (Verified 11/03/24 13:49) propoxyphene [From Darvon] Allergy (Verified 11/03/24 13:49) sulfamethoxazole [From Bactrim] Allergy (Verified 11/03/24 13:49) tetracycline Allergy (Verified 11/03/24 13:49) trimethoprim [From Bactrim] Allergy (Verified 11/03/24 13:49) Home Medications: Atorvastatin Calcium 20 mg PO QHS 06/20/19 [History] Losartan Potassium 50 mg [Cozaar 50 MG] 50 mg PO BID 06/20/19 [History] Non-Formulary Drug [Non-Formulary Item] 2,500 mcg PO DAILY 06/21/19 [History] Non-Formulary Drug [Non-Formulary Item] 100 mg PO QHS 06/21/19 [History] Apixaban [Eliquis] 2.5 mg PO BID 11/20/23 [History] Cetirizine HCl [Zyrtec] 10 mg PO DAILY 11/20/23 [History] Metoprolol Succinate 25 mg Xl* [Toprol-Xl 25MG Tablets] 25 mg PO DAILY 11/20/23 [History] Tramadol HCl 50 mg [Ultram 50 mg] 50 mg PO BID PRN 11/20/23 [History] Vit A/Vit C/Vit E/Zinc/Copper [Preservision Areds Tablet] 1 each PO BID 11/20/23 [History] Buspirone HCl 5 mg [Buspar 5 mg] 15 mg PO TID 12/07/23 [History] PARoxetine HCL [Paroxetine HCl] 10 mg PO DAILY 10/31/24 [History] Potassium Citrate [Potassium Citrate ER] 1 ea .ROUTE DAILY 11/03/24 [History] Hx Tetanus, Diphtheria Vaccination/Date Given: Yes Hx Influenza Vaccination/Date Given: Yes Hx Pneumococcal Vaccination/Date Given: Yes Immunizations Up to Date: Yes Travel Risk - International Travel Have you traveled outside of the country in past 3 weeks: No - Emerging Infectious Disease Are you exhibiting symptoms associated with any current EIDs: No Symptoms: Shortness of Breath, Other (Please Comment) (Dry mouth) - Review of Systems Constitutional: Fatigue Eyes: No Symptoms Ears, Nose, & Throat: No Symptoms Respiratory: No Symptoms Cardiac: No Symptoms Abdominal/Gastrointestinal: No Symptoms Musculoskeletal: No Symptoms Skin: No Symptoms Neurological: No Symptoms - Past Medical History Pertinent Past Medical History: Yes Neurological History: Stroke ENT History: No Pertinent History Cardiac History: Hypertension, Other Respiratory History: No Pertinent History Endocrine Medical History: No Pertinent History Musculoskeletal History: Osteoarthritis GI Medical History: Diverticulitis, Diverticulosis History: No Pertinent History Psycho-Social History: Anxiety Female Reproductive Disorders: No Pertinent History Other Medical History: PSH: PACEMAKER ON R SIDE, HX OF L SHOULDER ORIF, THYROIDECTOMY 30+ YEARS AGO, GALL BLADDER,. PMH: STROKE 8-10 YEARS AGO. ALLERGIES: SEE ABOVE - Past Surgical History Past Surgical History: Yes Neuro Surgical History: No Pertinent History Cardiac: Pacemaker Respiratory: No Pertinent History Gastrointestinal: Cholecystectomy Genitourinary: No Pertinent History Musculoskeletal: Orthopedic Surgery Female Surgical History: No Pertinent History Other Surgical History: thyroidectomy, rt rcr, surgery l5-s1, vein replacement to L shoulder d/t blockage - Social History Smoking Status: Never smoker Exposure to second hand smoke: No Drug Use: none - Social Determinants of Health Will the patient participate in the screening: Declined to provide - Nursing Vital Signs Nursing Vital Signs: Initial Vital Signs Temperature 97.7 F 11/03/24 13:52 Pulse Rate 78 11/03/24 13:52 Respiratory Rate 18 11/03/24 13:52 Blood Pressure 143/60 11/03/24 13:52 O2 Sat by Pulse Oximetry 95 11/03/24 13:52 Pain Scale Pain Intensity 0 - Physical Exam General Appearance: no apparent distress Eye Exam: PERRL/EOMI Ears, Nose, Throat Exam: hearing grossly normal Neck Exam: normal inspection, full range of motion Respiratory Exam: normal breath sounds, lungs clear Cardiovascular/Chest Exam: normal heart sounds, regular rate/rhythm Abdominal/Gastrointestinal Exam: soft, normal bowel sounds, No tenderness Extremity Exam: non-tender, normal range of motion Neurologic Exam: alert, oriented x 3, cooperative Skin Exam: normal color SpO2 Interpretation: borderline oxygenation SpO2: 90 O2 Delivery: Nasal Cannula - Course EKG Interpreted by Me: RATE (70 paced rhythm), NORMAL AXIS, Right Bundle Branch Block, Non-specific ST Changes Lab/Rad Data: Laboratory Result Diagrams 11/03/24 15:20 11/03/24 15:20 Laboratory Results 11/03/24 11/03/24 11/03/24 Range/Units 15:20 15:20 15:20 WBC 9.2 (3.98-10.04) x10^3/uL RBC 3.95 (3.93-5.22) x10^6/uL Hgb 12.3 (11.2-15.7) g/dL Hct 37.1 (34.1-44.9) % MCV 93.9 (79.4-94.8) fL MCH 31.1 (25.6-32.2) pg MCHC 33.2 (32.2-35.5) g/dL RDW 13.9 (11.7-14.4) % Plt Count 253 (182-369) x10^3/uL MPV 8.6 L (9.4-12.3) fL Gran % 54.2 (34.0-71.1) % Immature Gran % (Auto) 0.3 (0.001-0.429) % Nucleat RBC Rel Count 0.0 (0.00-0.2) % Eos # (Auto) 0.23 (0.04-0.36) x10^3/uL Immature Gran # (Auto) 0.03 (0.001-0.031) x10^3u/L Absolute Lymphs (auto) 2.79 (1.18-3.74) x10^3/uL Absolute Monos (auto) 1.07 H (0.24-0.86) x10^3/uL Absolute Nucleated RBC 0.00 (0.00-0.012) x10^3u/L Lymphocytes % 30.3 (19.3-51.7) % Monocytes % 11.6 (4.7-12.5) % Eosinophils % 2.5 (0.7-5.8) % Basophils % 1.1 (0.1-1.2) % Absolute Granulocytes 5.00 (1.56-6.13) x10^3/uL Basophils # 0.10 H (0.01-0.08) x10^3/uL Sodium 132 L (135-145) mmol/L Potassium 4.4 (3.5-5.1) mmol/L Chloride 95 L (98-107) mmol/L Carbon Dioxide 26 (22-30) mmol/L Anion Gap 14.7 (5-15) MEQ/L BUN 8 (7-17) mg/dL Creatinine 0.80 (0.52-1.04) mg/dL Estimated GFR 71.7 ML/MIN Glucose 112 H (74-106) mg/dL Calcium 9.1 (8.4-10.2) mg/dL Magnesium 1.7 (1.6-2.3) mg/dL Total Bilirubin 1.10 (0.2-1.3) mg/dL AST 44 H (14-36) U/L ALT 19 (0-35) U/L Alkaline Phosphatase 68 (38-126) U/L Troponin I < 0.012 (0.000-0.033) ng/mL NT-Pro-B Natriuret Pep 5270 (<300) pg/mL Serum Total Protein 6.7 (6.3-8.2) g/dL Albumin 4.4 (3.5-5.0) g/dL Urine Color (Yellow) Urine Appearance (Clear) Urine pH (4.6-8.0) Ur Specific Thompson (1.005-1.030) Urine Protein (Negative) Urine Glucose (UA) (Negative) mg/dL Urine Ketones (Negative) Urine Blood (Negative) Urine Nitrite (Negative) Urine Bilirubin (Negative) Urine Urobilinogen (0.2) mg/dL Ur Leukocyte Esterase (Negative) U Hyaline Cast (Auto) (0-2) /LPF Urine Microscopic RBC (0-5) /HPF Urine Microscopic WBC (0-5) /HPF Ur Epithelial Cells (None Seen) /HPF Urine Bacteria (None Seen) /HPF Urine Culture Reflexed (NO) 11/03/24 Range/Units 15:09 WBC (3.98-10.04) x10^3/uL RBC (3.93-5.22) x10^6/uL Hgb (11.2-15.7) g/dL Hct (34.1-44.9) % MCV (79.4-94.8) fL MCH (25.6-32.2) pg MCHC (32.2-35.5) g/dL RDW (11.7-14.4) % Plt Count (182-369) x10^3/uL MPV (9.4-12.3) fL Gran % (34.0-71.1) % Immature Gran % (Auto) (0.001-0.429) % Nucleat RBC Rel Count (0.00-0.2) % Eos # (Auto) (0.04-0.36) x10^3/uL Immature Gran # (Auto) (0.001-0.031) x10^3u/L Absolute Lymphs (auto) (1.18-3.74) x10^3/uL Absolute Monos (auto) (0.24-0.86) x10^3/uL Absolute Nucleated RBC (0.00-0.012) x10^3u/L Lymphocytes % (19.3-51.7) % Monocytes % (4.7-12.5) % Eosinophils % (0.7-5.8) % Basophils % (0.1-1.2) % Absolute Granulocytes (1.56-6.13) x10^3/uL Basophils # (0.01-0.08) x10^3/uL Sodium (135-145) mmol/L Potassium (3.5-5.1) mmol/L Chloride (98-107) mmol/L Carbon Dioxide (22-30) mmol/L Anion Gap (5-15) MEQ/L BUN (7-17) mg/dL Creatinine (0.52-1.04) mg/dL Estimated GFR ML/MIN Glucose (74-106) mg/dL Calcium (8.4-10.2) mg/dL Magnesium (1.6-2.3) mg/dL Total Bilirubin (0.2-1.3) mg/dL AST (14-36) U/L ALT (0-35) U/L Alkaline Phosphatase (38-126) U/L Troponin I (0.000-0.033) ng/mL NT-Pro-B Natriuret Pep (<300) pg/mL Serum Total Protein (6.3-8.2) g/dL Albumin (3.5-5.0) g/dL Urine Color Yellow (Yellow) Urine Appearance Clear (Clear) Urine pH 7.0 (4.6-8.0) Ur Specific Thompson <=1.005 (1.005-1.030) Urine Protein Negative (Negative) Urine Glucose (UA) Negative (Negative) mg/dL Urine Ketones Negative (Negative) Urine Blood Negative (Negative) Urine Nitrite Negative (Negative) Urine Bilirubin Negative (Negative) Urine Urobilinogen 0.2 (0.2) mg/dL Ur Leukocyte Esterase Small A (Negative) U Hyaline Cast (Auto) NONE SEEN (0-2) /LPF Urine Microscopic RBC 0-2 (0-5) /HPF Urine Microscopic WBC 0-2 (0-5) /HPF Ur Epithelial Cells None Seen (None Seen) /HPF Urine Bacteria None Seen (None Seen) /HPF Urine Culture Reflexed NO (NO) - Progress Progress: re-examined, unchanged Air Movement: good Progress Note: 11/03/24 16:54 54 years old who was discharged yesterday from [facility] inpatient with CHF exacerbation on Lasix presented back with overnight pulse ox showing desaturation to 85%. Patient oxygen saturation is in upper 80s in the ER although patient denies having any difficulty breathing. No increased swelling of lower extremities. Chest x-ray showed finding consistent with CHF with mild increase in the effusio n but patient clinically does not seem to be in acute CHF exacerbation. I believe continuing Lasix is what she needed along with oxygen. Has normal white count, chemistries fairly unremarkable and acute increase in the BNP. Troponins are negative. EKG no acute ST elevations and is a paced rhythm. I have discussed with Dr. Lamb hospitalist, reviewed history, workup, recommended discharge if he can arrange oxygen and patient can follow-up outpatient. I have shared the results of workup with patient and caregiver and plan of discharge with oxygen which they understand and agree. 11/03/24 20:07 patient remained stable, oxygen is arranged, patient and family counseled again Patient did not her friend/caregiver were very thankful for the care but her family over the phone was screaming at nurses with patient and caregiver both apologized for Blood Culture(s) Obtained: No Antibiotics given: No Counseled pt/family regarding: lab results, diagnosis, need for follow-up, rad results Medical Desision Making - Independent Historian Additional History obtained from: Support Coordinator - Diagnostic Testing Diagnostic test were ordered, analyzed, and reviewed by me: Yes Radiological Interpretation: Reviewed by me - Departure Departure Disposition: Home Clinical Impression: Congestive heart failure, Hypoxia Condition: Stable Critical Care Time: No Referrals: CAMILLE MILLER [Primary Care Provider] - Follow up with PCP 1 day Instructions: Heart Failure, Heart failure in adults - Discharge instructions Additional Instructions: Continue with Lasix. Follow-up with primary care/cardiology for reevaluation. Return to ER for any worsening.
[2024-11-03 16:17] LABS: ALBUMIN 4.4 g/dL (3.5-5.0); ANION GAP 14.7 MEQ/L (5-15); BILIRUBIN,TOTAL 1.1 mg/dL (0.2-1.3); Calcium 9.1 mg/dL (8.4-10.2); Creatinine 1 0.8 mg/dL (0.52-1.04); EST GLOMERULAR FILTRATION RATE 71.7 ML/MIN; MAGNESIUM 1.7 mg/dL (1.6-2.3); Potassium 4.4 mmol/L (3.5-5.1); Total Protein 6.7 g/dL (6.3-8.2)
--- NOTE | 2024-11-03 16:26 | XRAY ---
Indication: Short of breath. Comparison: October 31, 2024 Portable chest again demonstrates cardiomegaly, vascular congestion, and small bibasilar again favoring cardiac decompensation/CHF. Left effusion slightly increased. Superimposed pneumonia not completely excluded. No new cardiopulmonary abnormalities.
[2024-11-03 19:18] VITALS: BP 141/71; PULSE 79; RESP 17
[2024-11-03 23:50] VITALS: O2SAT 90
== END 2024-11-03 19:58 | disposition home or self-care (01) ==
LOC: ED 13:41
DX: R09.02 Hypoxemia (principal); I11.0 Hypertensive heart disease with heart failure; I50.9 Heart failure, unspecified; Z79.01 Long term (current) use of anticoagulants; Z79.891 Long term (current) use of opiate analgesic; Z79.899 Other long term (current) drug therapy
CPT/HCPCS: 36415; 71045; 80053; 81001; 83735; 83880; 84484; 85025; 99283; 99284

== ENCOUNTER 2025-06-06 10:59 | Emergency (ER) | payer MEDICARE ==
[2025-06-06 11:18] VITALS: TEMP 97.2
--- NOTE | 2025-06-06 11:42 | ERPHSYRPT ---
- History of Present Illness Time Seen by Provider: 06/06/25 11:40 Patient Subjective Stated Complaint: c/o fall and left hand injury. bruising present on left ribs Triage Nursing Assessment: Patient brought to ED by son with c/o fall yesterday in the bathroom. patient has a left hand injury, bruising, swelling, and laceration noted to the left hand. patient has bruising noted to the left ribs approximately 15cm in length. patient has 2 3cm x 3cm bruises on the back of left upper arm. patient complains of 7/10 in the left hand at this time. Patient has a 5cm laceration and a skin tear on dorsal side of left hand. denies pain in ribs or shoulder at this time. hypertensive, brought in by wheelchair, afebrile, denies hitting her head or LOC, patient doesn't appear to be in any distress at this time. Physician History: Patient is a 84-year-old female history of stroke hypertension anxiety left shoulder ORIF pacemaker, atrial fibrillation on Eliquis presents to our ED via private vehicle for evaluation of pain to her left hand and left ribs. Patient states that she fell yesterday in her bathroom. Patient states she stumbled. Patient states she has a tendency to fall. Fall was not associated with any neuro or cardiovascular symptomology. No associated chest pain or shortness of breath. No nausea vomiting or diaphoresis. No chest pain or shortness of breath. No associated numbness tingling or weakness. Patient does not believe she hit her head but has a mild posterior headache. No swelling. Patient did not present to our ED yesterday because she did not think her injuries were significant however today she observed bleeding at her left hand. She became concerned and came to our ED today. EMS evaluated patient yesterday. However patient declined transport. EMS applied a dry dressing to her left hand. Patient currently has a 5 cm skin tear and laceration at the dorsal aspect of her left hand. The wound is now 24 hours old. Patient had Tylenol prior to arrival. Patient declined additional pain medication. Patient voices no other complaints or concerns at this time. Portions of this note were created with voice recognition technology. There may be grammatical, spelling, punctuation or sound alike errors Timing/Duration: yesterday Severity: moderate Modifying Factors: Improves With: medication Associated Symptoms: denies symptoms Allergies/Adverse Reactions: amoxicillin Allergy (Verified 06/06/25 11:07) codeine Allergy (Verified 06/06/25 11:07) dicyclomine [From Bentyl] Allergy (Verified 06/06/25 11:07) eszopiclone [From Lunesta] Allergy (Verified 06/06/25 11:07) morphine Allergy (Verified 06/06/25 11:07) pregabalin [From Lyrica] Allergy (Verified 06/06/25 11:07) propoxyphene [From Darvon] Allergy (Verified 06/06/25 11:07) sulfamethoxazole [From Bactrim] Allergy (Verified 06/06/25 11:07) tetracycline Allergy (Verified 06/06/25 11:07) trimethoprim [From Bactrim] Allergy (Verified 06/06/25 11:07) Home Medications: Losartan Potassium 50 mg [Cozaar 50 MG] 50 mg PO BID 06/20/19 [History] Non-Formulary Drug [Non-Formulary Item] 1,000 mg PO QHS 06/21/19 [History] Apixaban [Eliquis] 2.5 mg PO BID 11/20/23 [History] Cetirizine HCl [Zyrtec] 10 mg PO DAILY 11/20/23 [History] Tramadol HCl 50 mg [Ultram 50 mg] 50 mg PO BID PRN 11/20/23 [History] Vit A/Vit C/Vit E/Zinc/Copper [Preservision Areds Tablet] 1 each PO BID 11/20/23 [History] Buspirone HCl 5 mg [Buspar 5 mg] 15 mg PO TID 12/07/23 [History] PARoxetine HCL [Paroxetine HCl] 10 mg PO DAILY 10/31/24 [History] Hx Tetanus, Diphtheria Vaccination/Date Given: Yes Hx Influenza Vaccination/Date Given: Yes Hx Pneumococcal Vaccination/Date Given: Yes Travel Risk - International Travel Have you traveled outside of the country in past 3 weeks: No - Emerging Infectious Disease Are you exhibiting symptoms associated with any current EIDs: No Symptoms: Shortness of Breath, Other (Please Comment) - Review of Systems All Other Systems: Reviewed and Negative - Past Medical History Pertinent Past Medical History: Yes Neurological History: Stroke ENT History: No Pertinent History Cardiac History: Hypertension, Other Respiratory History: No Pertinent History Endocrine Medical History: No Pertinent History Musculoskeletal History: Osteoarthritis GI Medical History: Diverticulitis, Diverticulosis History: No Pertinent History Psycho-Social History: Anxiety Female Reproductive Disorders: No Pertinent History Other Medical History: PSH: PACEMAKER ON R SIDE, HX OF L SHOULDER ORIF, THYROIDECTOMY 30+ YEARS AGO, GALL BLADDER, right arm fat tumor removed. PMH: STROKE 8-10 YEARS AGO. ALLERGIES: SEE ABOVE - Past Surgical History Past Surgical History: Yes Neuro Surgical History: No Pertinent History Cardiac: Pacemaker Respiratory: No Pertinent History Gastrointestinal: Cholecystectomy Genitourinary: No Pertinent History Musculoskeletal: Orthopedic Surgery Female Surgical History: No Pertinent History Other Surgical History: thyroidectomy, rt rcr, surgery l5-s1, vein replacement to L shoulder d/t blockage, tumor removed in right arm - Social History Smoking Status: Never smoker Exposure to second hand smoke: No Drug Use: none - Social Determinants of Health Will the patient participate in the screening: Declined to provide - Nursing Vital Signs Nursing Vital Signs: Initial Vital Signs Blood Pressure 176/85 06/06/25 11:06 O2 Sat by Pulse Oximetry 97 06/06/25 11:06 Pain Scale Pain Intensity 7 - Physical Exam General Appearance: no apparent distress, alert Eye Exam: PERRL/EOMI, eyes nml inspection Ears, Nose, Throat Exam: normal ENT inspection, moist mucous membranes Neck Exam: normal inspection, non-tender, supple, full range of motion Respiratory Exam: normal breath sounds, lungs clear, airway intact, No respiratory distress Cardiovascular Exam: regular rate/rhythm, normal heart sounds, normal peripheral pulses Gastrointestinal/Abdomen Exam: soft, normal bowel sounds, No tenderness, No mass Back Exam: normal inspection, normal range of motion, No CVA tenderness, No vertebral tenderness Extremity Exam: normal inspection, normal range of motion, pelvis stable, other (Bruising to left posterior humerus. Two 3 x 3 areas of bruising and tenderness.) Neurologic Exam: alert, oriented x 3, cooperative, normal mood/affect, sensation nml, No motor deficits Skin Exam: normal color, warm, dry, other (Patient has bruising and tenderness to palpation along the left lateral ribs near ribs 3456. Overlying soft tissue intact. No open or draining lesions.), No rash Lymphatic Exam: No adenopathy SpO2 Interpretation: normal SpO2: 97 O2 Delivery: Room Air - Course Nursing assessment & vital signs reviewed: Yes EKG Interpreted by Me: RATE (84), A-fib, LAFB, NORMAL INTERVALS (A-fib on Eliquis. Rate of 84), Right Bundle Branch Block - Radiology Exams Hand X-ray Interpretation: Teleradiologist Report (No acute bony articular or soft tissue abnormalities observed) Humerus X-ray Interpretation: Teleradiologist Report (No acute bony articular or soft tissue abnormalities observed) - CT Exams Head CT Interpretation: Tele-radiologist Report (Stable nonacute senile brain with chronic left maxillary sinusitis) Chest CT Interpretation: Tele-radiologist Report (Large heart, hepatic cysts bilateral pleural effusions atelectasis) Ordered Tests: Active Orders 24 hr Category Date Time Status Commercial Photographer STAT Care 06/06/25 14:13 Active EKG-ER Only STAT Care 06/06/25 14:09 Active IV Insertion STAT Care 06/06/25 14:09 Active Pulse Oximetry (ED) STAT Care 06/06/25 14:09 Active CHEST WITHOUT CONTRAST [CT] Stat Exams 06/06/25 11:37 Completed HAND (MINIMUM 3 VIEWS) Stat Exams 06/06/25 11:39 Completed HEAD WITHOUT CONTRAST [CT] Stat Exams 06/06/25 11:37 Completed HUMERUS Stat Exams 06/06/25 11:38 Completed CBC W DIFF Stat Lab 06/06/25 14:30 Completed CMP Stat Lab 06/06/25 14:30 Completed NT PRO BNPII Stat Lab 06/06/25 14:30 Completed TROPONIN Q4H Lab 06/06/25 14:30 Completed TROPONIN Q4H Lab 06/06/25 17:25 Completed TROPONIN Q4H Lab 06/06/25 22:15 Ordered UA W/RFX UR CULTURE Stat Lab 06/06/25 12:01 Completed Medication Summary Discontinued Medications Generic Name Dose Route Start Last Admin Trade Name Freq PRN Reason Stop Dose Admin Acetaminophen 975 mg 06/06/25 11:40 06/06/25 11:48 Acetaminophen 325 Mg Tablet PO 06/06/25 11:41 Not Given STAT ONE Furosemide 40 mg 06/06/25 17:23 06/06/25 17:26 Furosemide 40 Mg/4 Ml Vial IV 06/06/25 17:24 40 mg STAT ONE Administration Furosemide Confirm 06/06/25 17:25 Furosemide 40 Mg/4 Ml Vial Administered 06/06/25 17:26 Dose 40 mg .ROUTE .STK-MED ONE Potassium Chloride 20 meq 06/06/25 17:23 06/06/25 17:26 Potassium Chloride Tab 10 Meq Tab PO 06/06/25 17:24 20 meq STAT ONE Administration Potassium Chloride Confirm 06/06/25 17:25 Potassium Chloride Tab 10 Meq Tab Administered 06/06/25 17:26 Dose 20 meq .ROUTE .STK-MED ONE Lab/Rad Data: Laboratory Result Diagrams 06/06/25 14:30 06/06/25 14:30 Laboratory Results 06/06/25 06/06/25 06/06/25 Range/Units 17:25 14:30 14:30 WBC (3.98-10.04) x10^3/uL RBC (3.93-5.22) x10^6/uL Hgb (11.2-15.7) g/dL Hct (34.1-44.9) % MCV (79.4-94.8) fL MCH (25.6-32.2) pg MCHC (32.2-35.5) g/dL RDW (11.7-14.4) % Plt Count (182-369) x10^3/uL MPV (9.4-12.3) fL Gran % (34.0-71.1) % Immature Gran % (Auto) (0.001-0.429) % Nucleat RBC Rel Count (0.00-0.2) % Eos # (Auto) (0.04-0.36) x10^3/uL Immature Gran # (Auto) (0.001-0.031) x10^3u/L Absolute Lymphs (auto) (1.18-3.74) x10^3/uL Absolute Monos (auto) (0.24-0.86) x10^3/uL Absolute Nucleated RBC (0.00-0.012) x10^3u/L Lymphocytes % (19.3-51.7) % Monocytes % (4.7-12.5) % Eosinophils % (0.7-5.8) % Basophils % (0.1-1.2) % Absolute Granulocytes (1.56-6.13) x10^3/uL Basophils # (0.01-0.08) x10^3/uL Sodium 136 (135-145) mmol/L Potassium 4.3 (3.5-5.1) mmol/L Chloride 100 (98-107) mmol/L Carbon Dioxide 29 (22-30) mmol/L Anion Gap 12.4 (5-15) MEQ/L BUN 13 (7-17) mg/dL Creatinine 0.77 (0.52-1.04) mg/dL Estimated GFR 75.1 ML/MIN Glucose 103 (74-106) mg/dL Calcium 9.5 (8.4-10.2) mg/dL Total Bilirubin 1.20 (0.2-1.3) mg/dL AST 39 H (14-36) U/L ALT 15 (0-35) U/L Alkaline Phosphatase 94 (38-126) U/L Troponin I 0.018 0.019 (0.000-0.033) ng/mL NT-Pro-B Natriuret Pep 4230 (<300) pg/mL Serum Total Protein 6.9 (6.3-8.2) g/dL Albumin 4.5 (3.5-5.0) g/dL Urine Color (Yellow) Urine Appearance (Clear) Urine pH (4.6-8.0) Ur Specific [place] (1.005-1.030) Urine Protein (Negative) Urine Glucose (UA) (Negative) mg/dL Urine Ketones (Negative) Urine Blood (Negative) Urine Nitrite (Negative) Urine Bilirubin (Negative) Urine Urobilinogen (0.2) mg/dL Ur Leukocyte Esterase (Negative) U Hyaline Cast (Auto) (0-2) /LPF Urine Microscopic RBC (0-5) /HPF Urine Microscopic WBC (0-5) /HPF Ur Epithelial Cells (None Seen) /HPF Urine Bacteria (None Seen) /HPF Urine Culture Reflexed (NO) 06/06/25 06/06/25 Range/Units 14:30 12:01 WBC 8.1 (3.98-10.04) x10^3/uL RBC 4.47 (3.93-5.22) x10^6/uL Hgb 13.7 (11.2-15.7) g/dL Hct 42.8 (34.1-44.9) % MCV 95.7 H (79.4-94.8) fL MCH 30.6 (25.6-32.2) pg MCHC 32.0 L (32.2-35.5) g/dL RDW 13.8 (11.7-14.4) % Plt Count 208 (182-369) x10^3/uL MPV 9.4 (9.4-12.3) fL Gran % 54.9 (34.0-71.1) % Immature Gran % (Auto) 0.2 (0.001-0.429) % Nucleat RBC Rel Count 0.0 (0.00-0.2) % Eos # (Auto) 0.08 (0.04-0.36) x10^3/uL Immature Gran # (Auto) 0.02 (0.001-0.031) x10^3u/L Absolute Lymphs (auto) 2.72 (1.18-3.74) x10^3/uL Absolute Monos (auto) 0.78 (0.24-0.86) x10^3/uL Absolute Nucleated RBC 0.00 (0.00-0.012) x10^3u/L Lymphocytes % 33.7 (19.3-51.7) % Monocytes % 9.7 (4.7-12.5) % Eosinophils % 1.0 (0.7-5.8) % Basophils % 0.5 (0.1-1.2) % Absolute Granulocytes 4.43 (1.56-6.13) x10^3/uL Basophils # 0.04 (0.01-0.08) x10^3/uL Sodium (135-145) mmol/L Potassium (3.5-5.1) mmol/L Chloride (98-107) mmol/L Carbon Dioxide (22-30) mmol/L Anion Gap (5-15) MEQ/L BUN (7-17) mg/dL Creatinine (0.52-1.04) mg/dL Estimated GFR ML/MIN Glucose (74-106) mg/dL Calcium (8.4-10.2) mg/dL Total Bilirubin (0.2-1.3) mg/dL AST (14-36) U/L ALT (0-35) U/L Alkaline Phosphatase (38-126) U/L Troponin I (0.000-0.033) ng/mL NT-Pro-B Natriuret Pep (<300) pg/mL Serum Total Protein (6.3-8.2) g/dL Albumin (3.5-5.0) g/dL Urine Color Yellow (Yellow) Urine Appearance Clear (Clear) Urine pH 7.0 (4.6-8.0) Ur Specific [place] 1.010 (1.005-1.030) Urine Protein Negative (Negative) Urine Glucose (UA) Negative (Negative) mg/dL Urine Ketones Negative (Negative) Urine Blood Negative (Negative) Urine Nitrite Negative (Negative) Urine Bilirubin Negative (Negative) Urine Urobilinogen 0.2 (0.2) mg/dL Ur Leukocyte Esterase Negative (Negative) U Hyaline Cast (Auto) NONE SEEN (0-2) /LPF Urine Microscopic RBC 0-2 (0-5) /HPF Urine Microscopic WBC 0-2 (0-5) /HPF Ur Epithelial Cells None Seen (None Seen) /HPF Urine Bacteria None Seen (None Seen) /HPF Urine Culture Reflexed NO (NO) - Progress Progress: improved Progress Note: Discussed with steel cutter at approximately 5:25 PM. We discussed labs in detail including the BNP. Patient is on Lasix daily. He advised an additional Lasix dose along with 20 mEq of potassium. And discharged home. He also advised to reassess oxygenation to make sure patient is not hypoxic or short of breath. Patient reassessed. O2 sat is 97% room air. Patient requesting discharge. She agrees to follow-up with Dr. Hoyt tomorrow morning as planned. Patient reassessed. She is resting comfortably. She denies pain. History obtained from patient and her son who is at the bedside. Differential diagnosis includes fracture, contusion, sprain, CHF Patient is a 84-year-old female history of stroke hypertension anxiety left shoulder ORIF pacemaker, atrial fibrillation on Eliquis presents to our ED via private vehicle for evaluation of pain to her left hand and left ribs. Patient states that she fell yesterday in her bathroom. Physical exam reveals a skin tear superficial hand laceration. We are managing this with dressings. Due to age no indication for suture repair. The laceration is superficial and is expected to heal well without suture repair. Patient has bruising of her left arm. Patient had a slight headache. CT head shows chronic maxillary sinusitis otherwise no acute findings. CT chest revealed small bilateral pleural effusions with an enlarged heart. No pulmonary edema. We initiated a cardiac workup per radiology recommendations. BNP slightly elevated at 4200. Patient had a BNP last October that was 4300. We consulted with patient's cardiology group as per above. Patient reassessed. She is pain-free vitals are stable O2 sat at rest is 96 to 97%. Patient's son at the bedside. They agree to follow- up with cardiology tomorrow morning. They voiced no other complaints or concerns at this time. Portions of this note were created with voice recognition technology. There may be grammatical, spelling, punctuation or sound alike errors Complexity of problems addressed is moderate acute complicated. No critical care time. Complexity of data reviewed and analyzed is extensive. Test ordered test reviewed results analyzed and correlated clinically with history and physical exam. Management discussed with . Risk of complication at risk of morbidity/mortality of patient management is low. Vital stable. Time spent to discharge patient is approximately 15 minutes. Plan of care established for shared decision making. No social determinants of health present to impede follow-up. Portions of this note were created with voice recognition technology. There may be grammatical, spelling, punctuation or sound alike errors 06/06/25 18:02 Counseled pt/family regarding: diagnosis, need for follow-up, rad results - Departure Departure Disposition: Home Clinical Impression: Chronic left maxillary sinusitis, Fall, Elevated brain natriuretic peptide (BNP) level, Pleural effusion Condition: Stable Critical Care Time: No Referrals: CAMILLE MILLER [Primary Care Provider, [facility]] - Follow up/PCP as directed Additional Instructions: Per you are to follow-up with Dr. Hoyt tomorrow morning for a reassessment. Discharge/Care Plan WILLARD RUSS was seen on 06/06/25 in the Emergency Room. The patient was counseled regarding Diagnosis,Lab results, Imaging studies, need for follow up and when to return to the Emergency Room. Prescriptions given: Discharge Note I have spoken with the patient and/or caregivers. I have explained the patient's condition, diagnosis and treatment plan based on the information available to me at this time. I have answered the patient's and/or caregiver's questions and addressed any concerns. The patient and/or caregivers have as good understanding of the patient's diagnosis, condition and treatment plan as can be expected at this point. The vital signs have been stable. The patient's condition is stable and appropriate for discharge from the emergency department. The patient will pursue further outpatient evaluation with the primary care physician or other designated or consulting physician as outlined in the discharge instructions. The patient and/or caregivers are agreeable to this plan of care and follow-up instructions have been explained in detail. The patient and/or caregivers have received these instruction. The patient/and or caregivers are aware that any significant change in condition or worsening of symptoms should prompt an immediate return to this or the closest emergency department or call 911.
[2025-06-06] MEDS: TYLENOL 325 MG PO ONE (11:48)
--- NOTE | 2025-06-06 12:20 | XRAY ---
Indication: Trauma. Comparison: None 2 view left humerus demonstrates osteopenia, intact total shoulder arthroplasty, fusion acromioclavicular joint, and numerous scattered vascular calcifications. No acute bony, articular, or soft tissue abnormalities.
--- NOTE | 2025-06-06 12:20 | XRAY ---
Indication: Trauma. Comparison: None 3 view left hand demonstrates osteopenia, minimal/mild degenerative changes all IP/MCP joints greatest 5th MCP, mild/moderate 1st metacarpal multangular scaphoid degenerative changes, faint radial ulnar carpal degenerative chondrocalcinosis, and scattered radial/ulnar artery calcifications. No acute bony, articular, or soft tissue abnormalities.
[2025-06-06 12:34] LABS: Glucose, Urine Negative (Negative); Protein,Urine Dip Negative (Negative); RBC 0-2 /HPF (0-5); WBC 0-2 /HPF (0-5)
--- NOTE | 2025-06-06 13:20 | XRAY ---
Indication: Trauma. Multiple contiguous axial images obtained through the head without contrast. Comparison: December 07, 2023 Again age-appropriate global atrophy and mild periventricular degenerative microischemia bilaterally. No acute intracranial hemorrhage, abnormal extra-axial fluid collection, or mass effect. 4th ventricle is midline without hydrocephalus. Bony calvarium intact. Again near complete mucoperiosteal thickening left maxillary sinus. Mastoid air cells are clear. Impression: Stable nonacute senile brain with again chronic left maxillary sinusitis.
--- NOTE | 2025-06-06 13:40 | XRAY ---
Indication: Trauma. Multiple contiguous axial images obtained through the chest without contrast. Comparison: None Beam artifact from left shoulder arthroplasty. Lungs demonstrates small left and tiny right effusions with minimal compressive atelectasis. Minimal bilateral midlung subsegmental atelectasis/scarring. No suspicious pulmonary mass/nodule, infiltrate, or pneumothorax. Heart is enlarged with scattered coronary calcifications and right dual lead pacemaker. Aorta is moderately arteriosclerotic without aneurysm. No pathologic mediastinal lymphadenopathy. Bony thorax intact with osteopenia and minimal/mild degenerative changes throughout spine. Also old lateral left 6/7 rib fractures. Limited upper abdomen demonstrates a few hepatic cysts, largest 1.8 cm. Impression: 1. Beam artifact from left shoulder arthroplasty. 2. Cardiomegaly with bilateral effusions. Rule out cardiac decompensation/CHF. 3. Chronic findings including atelectasis/scarring, arteriosclerotic disease, chronic bony findings, and hepatic cysts.
[2025-06-06 14:31] LABS: BASOPHIL % 0.5 % (0.1-1.2); Basophil (Absolute #) 0.04 x10^3/uL (0.01-0.08); Eosinophil (Absolute #) 0.08 x10^3/uL (0.04-0.36); Hematocrit 42.8 % (34.1-44.9); Hemoglobin 13.7 g/dL (11.2-15.7); IMMATURE GRAN # 0.02 x10^3u/L (0.001-0.031); IMMATURE GRAN % 0.2 % (0.001-0.429); Lymphocyte (Absolute #) 2.72 x10^3/uL (1.18-3.74); Mean Corpuscular Hemoglobin 30.6 pg (25.6-32.2); Mean Corpuscular Hgb Concent. 32.0 g/dL (32.2-35.5); Monocyte (Absolute #) 0.78 x10^3/uL (0.24-0.86); NUCLEATED RBC # 0.00 x10^3u/L (0.00-0.012); NUCLEATED RBC % 0.0 % (0.00-0.2); Platelet Count 208 x10^3/uL (182-369); Red Blood Count 4.47 x10^6/uL (3.93-5.22); White Blood Count 8.1 x10^3/uL (3.98-10.04)
[2025-06-06 14:55] LABS: Calcium 9.5 mg/dL (8.4-10.2); Carbon Dioxide 29.0 mmol/L (22-30); Creatinine 1 0.77 mg/dL (0.52-1.04); EST GLOMERULAR FILTRATION RATE 75.1 ML/MIN; Glucose 103.0 mg/dL (74-106); Potassium 4.3 mmol/L (3.5-5.1); SGOT/AST 39.0 U/L (14-36); SGPT/ALT 15.0 U/L (0-35); Total Protein 6.9 g/dL (6.3-8.2)
[2025-06-06 15:00] LABS: NT PRO BNPII 4230.0 pg/mL (<300); TROPONIN 0.019 ng/mL (0.000-0.033)
[2025-06-06 15:03] VITALS: RESP 18
[2025-06-06] MEDS ORDERED: Klor Con ONE (17:25)
[2025-06-06] MEDS ORDERED: Lasix 40 MG/4 ML ONE (17:25)
[2025-06-06] MEDS: Lasix 40 MG/4 ML IV ONE (17:26)
[2025-06-06] MEDS: Klor Con PO ONE (17:26)
[2025-06-06 18:04] VITALS: O2SAT 97
[2025-06-06 18:06] VITALS: BP 174/86; PULSE 83
== END 2025-06-06 18:27 | disposition home or self-care (01) ==
LOC: ED 10:59
DX: Z04.3 Encounter for examination and observation following other accident (principal); J32.0 Chronic maxillary sinusitis; R79.89 Other specified abnormal findings of blood chemistry; J90 Pleural effusion, not elsewhere classified; M79.642 Pain in left hand; R07.81 Pleurodynia; I10 Essential (primary) hypertension; Z79.01 Long term (current) use of anticoagulants; Z79.899 Other long term (current) drug therapy